=== PATIENT | male | born 1960 | race African-American/Black ===

== ENCOUNTER 2018-04-14 21:04 | Inpatient (IN) | payer SELFPAY ==
[2018-04-14 22:45] LABS: Bilirubin Small (Negative); Blood, Urine Small (Negative); Clarity CLEAR (Clear); Glucose, Urine (Dipstick) Negative (Negative); Leukocyte Negative (Negative); Nitrite Negative (Negative); Protein, Urine (Dipstick) Trace mg/dL (Neg-Trace); Specific Gravity, Urine 1.024 (1.002-1.036); pH, Urine 5.5 (5.0-9.0)
[2018-04-14 22:48] LABS: Bacteria/HPF None Seen HPF (None Seen); Hyaline Casts/LPF 0-3 HYALINE CAST LPF (0-3 Hyaline); Pathc Cast-AUWi Flag 0.58 (0-2.49); Squamous Epithelial 0-3 HPF (0-3); WBC/HPF 0-3 HPF (0-3)
[2018-04-14 23:19] LABS: #Basophils 0.1 thou/uL (0.0-0.2); #Lymphocytes 1.5 thou/uL (1.20-3.40); #Monocytes 0.5 thou/uL (0.11-0.59); #Neutrophils 3.9 thou/uL (1.40-6.50); %Basophils 1.2 % (0.0-1.0); %Eosinophils 0.4 % (0.0-10.0); %Lymphocytes 25.4 % (21.0-51.0); %Monocytes 8.7 % (0.0-10.0); %Neutrophils 64.3 % (42.0-75.0); Hemoglobin 13.8 g/dL (14.0-18.0); Mean Corpuscular HGB CONC 32.8 g/dL (32.0-36.0); Mean Corpuscular Volume 88.5 fL (78.0-98.0); Mean Platelet Volume 7.8 fL (7.4-10.4); Platelet Count 254 thou/uL (130-400); RBC Distribution Width 11.4 % (11.5-14.5); Red Blood Cell (RBC) Count 4.74 mill/uL (4.70-6.10)
[2018-04-14 23:36] LABS: ALT (SGPT) 16 U/L (8-55); AST (SGOT) 22 U/L (5-34); Albumin 4.2 g/dL (3.5-5.0); Alkaline Phosphatase 131 U/L (40-150); Anion Gap 11 mmol/L (10-20); BUN (Urea Nitrogen) 10 mg/dL (8.4-25.7); Bilirubin, Total 0.6 mg/dL (0.2-1.2); Calc. Creatinine Clearance 0 mL/min (70-130); Calcium 10.2 mg/dL (7.8-10.44); Carbon Dioxide 26 mmol/L (22-29); Chloride 104 mmol/L (98-107); Estimated GFR-MDRD Greater than 90; Globulin 3.5 g/dL (2.4-3.5); Glucose 86 mg/dL (70-105); Potassium 4.3 mmol/L (3.5-5.1); Protein, Total 7.7 g/dL (6.0-8.3); Sodium 137 mmol/L (136-145)
[2018-04-15] MEDS ORDERED: Morphine 10 MG/ML VIAL ONE (00:02)
[2018-04-15] MEDS ORDERED: Acetaminophen 325 MG TAB PO PRN (01:00)
[2018-04-15 01:17] VITALS: BMI 23.6
[2018-04-15] MEDS ORDERED: Milk Of Magnesia 30 ML UDCUP PO PRN (07:21)
[2018-04-15] MEDS ORDERED: ISOVUE-370 76%-LOCM 1 ML ONE (09:45)
[2018-04-15 10:34] LABS: Amphetamine Not Detected (NotDetected); Barbiturates Screen Not Detected (NotDetected); Benzodiazepine Screen Not Detected (NotDetected); Cocaine Metabolite Screen Not Detected (NotDetected); Medtox Control Line Valid? VALID (VALID); Medtox Reader # READER 1; Methadone Not Detected (NotDetected); Methamphetamine Not Detected (NotDetected); Opiate Screen Not Detected (NotDetected); Oxycodone Screen Not Detected (NotDetected); Phencyclidine (PCP) Not Detected (NotDetected); THC/Cannabinoid Screen Detected (NotDetected); Tricyclic Screen Not Detected (NotDetected)
[2018-04-15] MEDS: Heparin 5,000 UNITS/ML VIAL SC SCH ×3 (11:01→21:32)
[2018-04-15] MEDS: Docusate 100 MG CAP PO SCH ×2 (11:02→21:32)
[2018-04-15] MEDS: Lisinopril 10 MG TAB PO SCH (11:04)
[2018-04-15] MEDS: Naproxen 500 MG TAB PO SCH (11:07)
--- NOTE | 2018-04-15 11:26 | HP ---
CHIEF COMPLAINT: Lower extremity weakness. HISTORY OF PRESENT ILLNESS: Mr. Yony Marsh is a 57-year-old male with a past medical history o f hypertension, who complains of bilateral lower extremity edema that has been worse over the past 6 months. It is associated with pain in his left lower back. He describes it as achy and occasionally sharp. The pain does not radiate down his legs. There is no associated numbness or tingling. Over the past few months he has found it more difficult to ambulate and has been more or less confined to his room. There is no history of fevers or chills. 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 There is no history of urinary incontinence. No loss of sensation. At the emergency room, a rectal exam was done which showed decreased rectal to ne, but no other major findings on examination. Neurosurgery was consulted and they recommended gett ing MRIs of his lower extremities and his spine. I will review once imaging is done. PAST MEDICAL HISTORY: Hypertension. PAST SURGICAL HISTORY: None. PSYCHIATRIC HISTORY: None. FAMILY HISTORY: Reviewed and noncontributory. SOCIAL HISTORY: He drinks alcohol very rarely. He smokes cigarettes about 1 pack per week. He also admits to marijuana use. HOME MEDICATIONS: Lisinopril 10 mg daily, naproxen 500 mg daily. REVIEW OF SYSTEMS: All systems reviewed and negative except as stated in HPI. PHYSICAL EXAMINATION: VITAL SIGNS: Blood pressure 129/77, oxygen saturation 97% on room air, respiratory rate 18, pulse 61 , temperature 98.2 degree Fahrenheit. GENERAL: Not in acute distress, lying comfortably in bed. HEENT: Normocephalic, atraumatic. He has a scar across the left forehead. Moist mucous membranes. Poor dentition. NECK: Supple, with full range of movements. CARDIOVASCULAR: S1, S2 only. Regular rate and rhythm. No murmurs, rubs or gallops. RESPIRATORY: Vesicular breath sounds bilaterally. No wheezes or rales. MUSCULOSKELETAL: Tenderness around L2-L3 and L4, but no costovertebral angle tenderness. Strength i s about 3/5 in bilateral lower extremities, normal range of movements. RECTAL: Rectal exam was done in the emergency room and had a decreased rectal tone, but no saddle an esthesia. NEUROLOGIC: No focal deficit. Alert and well oriented to time, place and person. SKIN: Warm, dry, well-perfused. No rashes or lesions. PSYCHIATRIC: Normal mood and affect. LABORATORY DATA: CBC and CMP were largely unremarkable. Urinalysis as well as urine toxicology reve aled positive for cannabis. IMAGING: MRI of the thoracic, lumbar and cervical spine. ASSESSMENT AND PLAN: 1. Bilateral lower extremity weakness. 2. Hypertension. 3. He has had chronic bilateral lower extremity weakness with no alarming neurological signs. Neurosurgery consulted and MRI of his thoracic, lumbar and cervical spines have been ordered, they wi ll review with results. PLAN: We will ensure adequate pain control and he might require some muscle relaxants and lorazepam. We will also obtain a TSH, LDH and CPK as well. Differential diagnoses at this point are numerous including a possible radiculopathy, compression and less likely malignancy. Deep venous thrombosis prophylaxis; subcutaneous heparin. CODE STATUS: FULL CODE.
--- NOTE | 2018-04-15 12:21 | MRI ---
THORACIC SPINE WITHOUT CONTRAST: HISTORY: Bilateral lower extremity weakness. COMPARISON: None. TECHNIQUE: Multiplanar, multisequence MR images of the thoracic spine without contrast were obtained. FINDINGS: There is low signal intensity on the T1 images in the vertebral bodies which could suggest a marrow i nfiltrative process. No significant disk desiccation is seen. There is a well circumscribed focus of high T1 and T2 signal within the T10 vertebral body, which likely represents a small hemangioma. The visualized cord demonstrates normal signal throughout. There is a focus of high T2 signal on the left kidney, which likely represent a cyst. The other prevertebral and paraspinal soft tissues are unremarkable. No significant central canal stenosis is seen. No posterior facet arthrosis is present. No neural f oraminal stenosis is seen. IMPRESSION: No acute thoracic spine abnormality. POS: [facility]
--- NOTE | 2018-04-15 12:29 | MRI ---
MRI CERVICAL SPINE WITHOUT CONTRAST: HISTORY: Bilateral leg weakness. COMPARISON: None. TECHNIQUE: Multiplanar, multisequence MR images were obtained of the cervical spine without contrast. FINDINGS: On the sagittal STIR sequences, there is an appearance of abnormal signal within the cord. However, this is likely artifactual, as this is not confirmed on the sagittal T2 or the axial images. The crane assembler niocervical junction is unremarkable. There is generalized disk desiccation. Vertebral bodies are normal in height without fracture or sub luxation. There is low signal intensity on the T1 images in the vertebral bodies which could suggest a marrow infiltrative process. C2-C3: A minimal disk osteophyte complex is seen. Mild bilateral posterior facet arthrosis. No blaine tral canal stenosis. Mild bilateral neural foraminal stenosis. C3-C4: A small disk osteophyte complex is seen. Mild left posterior facet arthrosis. No right post erior facet arthrosis. Mild central canal stenosis. Moderate left and mild right neural foraminal s tenosis. C4-C5: A moderate disk osteophyte complex is seen. Mild bilateral posterior facet arthrosis. Moder ate to severe central canal stenosis. Moderate to severe bilateral neural foraminal stenosis. C5-C6: A moderate disk osteophyte complex is seen. Mild bilateral posterior facet arthrosis. Moder ate to severe central canal stenosis. Severe bilateral neural foraminal stenosis. C6-C7: A small disk osteophyte complex is seen. No posterior facet arthrosis. Mild central canal s tenosis. No neural foraminal stenosis. C7-T1: Unremarkable. IMPRESSION: 1. Degenerative changes of the cervical spine, as above. 2. No significant abnormal signal within the spinal cord in the cervical spine. POS: [facility]
--- NOTE | 2018-04-15 12:30 | MRI ---
MRI LUMBAR SPINE WITHOUT CONTRAST: Comparison: None. History: Bilateral lower extremity weakness. Technique: Multiplanar, multisequence MRI images were obtained of the lumbar spine without contrast. FINDINGS: There are endplate degenerative changes throughout the lumbar spine. There is low signal intensity on the T1 images in the vertebral bodies which could suggest a marrow infiltrative process. The conus m edullaris terminates normally at L1-2. The vertebral bodies demonstrate normal height without fractur e or subluxation. There is loss of intervertebral disc space height. Small foci of high T2 signal in both kidneys likely represents cysts. The paraspinal soft tissues are unremarkable. T12-L1: Unremarkable. L1-2: Unremarkable. L2-3: A moderate disc osteophyte complex is seen. Mild bilateral posterior facet arthrosis. Mild cent ral canal stenosis. Mild bilateral neural foraminal stenosis. L3-4: A small disc osteophyte complex is seen. Mild bilateral posterior facet arthrosis. Mild central canal stenosis. Mild bilateral neural foraminal stenosis. L4-5: Moderate disc osteophyte complex is seen. Mild bilateral posterior facet arthrosis. Mild centra l canal stenosis. Mild to moderate neural foraminal stenosis. L5-S1: A small disc osteophyte complex is seen. Moderate bilateral posterior facet arthrosis. Mild ce ntral canal stenosis. Moderate to severe bilateral neural foraminal stenosis. IMPRESSION: 1. Degenerative changes of the lumbar spine as above. 2. There is abnormal signal within the marrow which could suggest a marrow infiltrative process. Eloy elate with history of malignancy and correlate with white blood cell count. POS: [facility]
[2018-04-15] MEDS ORDERED: Cyclobenzaprine 10 MG TAB PO PRN (13:59)
--- NOTE | 2018-04-15 18:55 | CT ---
CT ABDOMEN WITH CONTRAST CT PELVIS WITH CONTRAST: DATE: 04/15/18 HISTORY: 57-year-old male with abdominal mass found on lumbar spine MRI. TECHNIQUE: IV injection of iodinated contrast media: 100 mL Isovue 370 Oral contrast media: Redi-Cat FINDINGS: There is a large, extraluminal, approximately 14.5 x 9 x 14.5 cm mass with lobulated margins in the a nterior peritoneal cavity, centered to the right of midline. It has a superior process that abuts the outer surface of the distal gastric body. Its inferior aspect reaches inferior to the right iliac cr est level. It has heterogeneous enhancement and lobulated margins, but no areas of necrosis. It is un certain whether it is arising from the outer surface of the stomach, or arising from the mesentery or omentum. It displaces the hepatic flexure of the colon posteriorly. Tiny subcentimeter hypodensity at the dome of the right lobe of the liver in hepatic segment VIII, to o small to characterize. Otherwise, the liver, kidneys, abdominal aorta, pancreas, adrenals, spleen, appendix, are normal. Large amount of stool expanding the rectum. No diverticulitis. No small bowel d ilation. No retroperitoneal or iliac chain lymphadenopathy. No ascites or pneumoperitoneum. There are mixed sclerotic and lucent changes throughout the right ilium and ischium, with slightly ex panded bone. Lung bases are grossly clear. IMPRESSION: 1. 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 2. 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 TEE Lawrence POS: [facility]
--- NOTE | 2018-04-15 19:56 | CON ---
DATE OF CONSULTATION: 04/15/2018 This is Carlos Alberto Britt PA-C, dictating for Dr. Rudy Gardner. This is a 50-minute initial patient consult in which greater than 50% of the exam was spent counselin g and coordinating patient's care. Remainder of the exam was spent in review of patient's medical re cords and appropriate imaging studies. CHIEF COMPLAINT: Low back pain with bilateral lower extremity pain and weakness with increased falls . HISTORY OF PRESENT ILLNESS: Mr. Marsh is a 57-year-old male who presents to [facility] f or the above complaints. The patient apparently has a 7-month history of low back pain with bilatera l entire thigh pain and weakness into the bilateral legs, worse on the right than the left. He state s that he typically falls 1-2 times per month and has required use of a cane and crutches for gait st ability over the past 3-4 months. He is not currently on blood thinners. He is a current every day smoker. The patient has noticed balance issue that have become progressively worse over the past sev eral months. He denies saddle anesthesia, urinary or bowel retention or incontinence. He denies num bness or tingling into the legs or decreased sensation to the feet. He is not diabetic. He denies n heather pain, dropping objects more frequently, difficulty with fine motor movements, burning in the hand s or changes in his handwriting. He has not had spinal surgery. PHYSICAL EXAMINATION: The patient is awake, alert, and appropriate. He does appear to have full str ength in the bilateral lower extremities, perhaps with some very trace weakness into the bilateral qu adriceps, worse in the right than the left and right plantar flexion. He has no worrisome tenderness to palpation along the entirety of the spine. He has no worrisome myelopathic features on exam incl uding negative Sepulveda's bilaterally and no increased tone. Gait was not tested in his exam room toedi lopez, although per the emergency room physician last night, he was able to walk around the exam room to the bathroom. His GCS currently is 15. IMPRESSION: 1. Chronic low back pain with bilateral leg pain, worse on the right than the left, in a nondermatom al distribution. 2. Increased falls. PLAN: I have discussed the patient's case with Dr. Gardner. At this time, given the patient's increa sed falls, balance difficulties and leg pain, I have ordered MRI and asked that MRIs of the cervical, thoracic, and lumbar spine be obtained. Medical colleagues who graciously admitted the patient and will work on his continued pain control. At this time, we hope to avoid any type of neurosurgical in tervention, but will need to obviously check back once these MRIs have been completed. Please call w ith any questions or changes in patient's neurologic status. Again, otherwise we will check back wit h his MRIs have been completed.
[2018-04-15] MEDS: Diazepam 5 MG TAB PO SCH (21:32)
--- NOTE | 2018-04-15 22:50 | CON ---
DATE OF CONSULTATION: 04/15/2018 HISTORY OF PRESENT ILLNESS: The patient is a 57-year-old male with a past medical history of hypertension, who presented to the emergency department complaining of bilateral lower extremity weakness. The patient reports that he has had gradual worsening bilateral lower extremity weakness over the past 6 months. The patient reports that he has difficult ambulating where his legs will give out causing frequent falls. He also reports he has a long history of chronic neck and back pain which has been progressively worsening over the years. He denies any bowel or bladder incontinence. No sensation changes in the extremities. He was admitted to the medical service for further evaluation and MRI of the cervical, thoracic, and lumbar spines were completed during his inpatient stay. I have reviewed the films with Dr. Young, which showed degenerative disk disease, particularly throughout the cervical and lumbar spine; however, there is no significant nerve compression. The patient was also seen to have a questionable mass-like formation which is approximately 14 cm within the abdomen which will likely require a further workup with a CT abdomen and pelvis imaging. PAST MEDICAL HISTORY: Hypertension. PAST SURGICAL HISTORY: The patient denies any prior surgeries. FAMILY HISTORY: Noncontributory. SOCIAL HISTORY: The patient is a smoker, 1 pack per week. He drinks socially. He does occasionally use marijuana. CURRENT MEDICATION LIST: Lisinopril 10 mg tab, 1 tab p.o. daily; naproxen 500 mg tab 1 tab p.o. daily. REVIEW OF SYSTEMS: Per HPI. PHYSICAL EXAMINATION: CONSTITUTIONAL: Sitting in the bed comfortably, in no acute distress. HEENT: Normocephalic, atraumatic. EYES: PERRLA. Extraocular movements intact. ENT: Oral mucosa is pink, intact and moist. He has normal voice. CARDIAC: Regular rate and rhythm. RESPIRATORY: The patient has symmetric chest expansion. He is breathing comfortably with no evidence of dyspnea. BACK: He is tender to palpation diffusely over the lumbar spine. Pain with range of motion. NECK: He is tender diffusely with his cervical spine. Pain with range of motion. No meningismus or nuchal rigidity. MUSCULOSKELETAL: He has free active range of motion of all extremities. No focal motor weakness appreciated on my exam. No reflex asymmetry. Negative Sepulveda's. Negative clonus. NEUROLOGIC: Alert and oriented x4. No focal motor deficits are appreciated on my exam. ASSESSMENT AND PLAN: This is a 57-year-old male who has had progressive lower extremity weakness, admitted to the Medicine Service with recent imaging of the cervical, thoracic, and lumbar spine with MRI. There is no significant nerve compression on his MRI to account for his lower extremity weakness, falls or difficulty ambulating. The patient does appear to have an incidental mass within the abdomen and found on the lumbar MRI, and this merits further workup with CT chest, abdomen, and pelvis imaging. We will defer to the Medicine Service regarding further evaluation of this mass. No further neurosurgical intervention indicated at this time. The patient may benefit from physical therapy, inpatient rehabilitation, and additional pain control measures. Please reach out to Neurosurgery for additional questions or concerns. [facility]IN[facility]
[2018-04-16 05:22] LABS: ALT (SGPT) 13 U/L (8-55); AST (SGOT) 19 U/L (5-34); Albumin 3.9 g/dL (3.5-5.0); Alkaline Phosphatase 123 U/L (40-150); Anion Gap 12 mmol/L (10-20); BUN (Urea Nitrogen) 16 mg/dL (8.4-25.7); Bilirubin, Total 0.4 mg/dL (0.2-1.2); CK (CPK) 531 U/L (30-200); Calc. Creatinine Clearance 136 mL/min (70-130); Calcium 9.9 mg/dL (7.8-10.44); Carbon Dioxide 27 mmol/L (22-29); Chloride 104 mmol/L (98-107); Estimated GFR-MDRD Greater than 90; Globulin 3.1 g/dL (2.4-3.5); Glucose 83 mg/dL (70-105); LDH 154 U/L (125-220); Potassium 4.1 mmol/L (3.5-5.1); Sodium 139 mmol/L (136-145)
[2018-04-16] MEDS: Naproxen 500 MG TAB PO SCH (07:46)
[2018-04-16] MEDS: Lisinopril 10 MG TAB PO SCH (07:48)
[2018-04-16] MEDS: Docusate 100 MG CAP PO SCH ×2 (07:48→20:52)
[2018-04-16] MEDS: Diazepam 5 MG TAB PO SCH ×2 (07:49→20:52)
[2018-04-16] MEDS: Heparin 5,000 UNITS/ML VIAL SC SCH ×3 (07:53→20:52)
--- NOTE | 2018-04-16 10:46 | PRG ---
DATE OF SERVICE: 04/16/2018 This is a 30 minute initial hospital visit note in which 30 minutes were spent in review the imaging record, evaluation, examination of the patient, and formulation of a plan. Greater than 50% of the t amie was spent in counseling on patient Mr. Yony Marsh. CHIEF COMPLAINT: Concern of leg weakness with abdominal mass incidentally found on MRI. HISTORY OF PRESENT ILLNESS: Mr. Marsh is a 57-year-old man who presented with leg weakness. Full spinal imaging demonstrates no evidence of worrisome compression of the neural elements; however, a 15 cm mass was identified in the anterior peritoneum to the right of the midline. This is concerning for neoplasm and I should note there is also evidence of abnormalities that may be degenerative vers us metastatic lesions in the right pelvis and lumbar spine. None of this provides instability howeve r. The patient on exam today has full strength in his lower extremity myotomes and he and his s early that his pain has been improved since initiating analgesic medication. IMPRESSION AND PLAN: At this point, I would recommend no further neurosurgical intervention. He obv iously needs a biopsy of this mass and will defer to our medical colleagues. I will sign off.
--- NOTE | 2018-04-16 13:53 | CON ---
DATE OF CONSULTATION: 04/16/2018 REASON FOR CONSULTATION: Extraluminal abdominal mass. HISTORY OF PRESENT ILLNESS: Mr. Marsh is a pleasant 57-year-old male with a hist ory of hypertension, who presented to the emergency room with a 6-month complaint of bilateral lower extremity swelling and pain. He underwent evaluation with an MRI. There were degenerative changes i n the lumbar spine; however, there was a mass measuring 15 cm in size noted. He then underwent an ab dominal and pelvis CT. The large extraluminal mass had lobulated margins, it is in the anterior ya toneal cavity, centered right of midline. There was a process that abutted the outer surface of the distal gastric body, measured 14 x 5 x 9 x 14 x 5 cm. There was no area of necrosis. Also noted a m ixed sclerotic and lucent bone lesions consistent with Paget's disease of the bone. We were asked to assist with diagnosis. The patient states he has been in his usual state of health except for his l ower extremity pain over the last 6 months. He has lost over 30 pounds due to decrease in appetite a nd early satiety. He denies any abdominal distention or pain. He has no constipation or diarrhea. PAST MEDICAL HISTORY: Hypertension. PAST SURGICAL HISTORY: None. ALLERGIES: No known drug allergies. HOME MEDICATIONS: 1. Lisinopril 10 mg daily. 2. Naproxen 500 mg daily p.r.n. FAMILY HISTORY: Has an older brother with prostate cancer, another brother with colon cancer. His f ather had stomach cancer and an aunt with breast cancer. SOCIAL HISTORY: A 40-year pack history of smoking. Occasional marijuana use. Rare alcohol. REVIEW OF SYSTEMS: A 12-point review of systems is negative except for noted in HPI. PHYSICAL EXAMINATION: VITAL SIGNS: Temperature is 97.3, pulse is 66, respiratory rate 16, BP is 126/77. He is 98% on room air. GENERAL: This is a well-developed, well-nourished male, in no acute distress. HEENT: Normocephalic, atraumatic. Pupils equal and reactive to light. NECK: Supple. CARDIOVASCULAR: Regular rate and rhythm. LUNGS: Clear. ABDOMEN: Soft, nondistended. There is a palpable mass right of the midline without any discrete mar gins. EXTREMITIES: No clubbing, cyanosis or edema. SKIN: No rash. HEMATOLOGIC: No petechia or purpura. NEUROLOGIC: Nonfocal. PSYCHIATRIC: The patient is alert and oriented and appropriate. PERTINENT LABORATORY AND X-RAYS: WBCs are 6.0, hemoglobin 13.8, hematocrit 41.9, platelet count 254, 000, 64% neutrophils, 25% lymphocytes. Sodium is 139, potassium 4.1, chloride 104, CO2 is 27, BUN is 16, creatinine 0.72, calcium is 9.9, total bilirubin is 0.4, AST is 19, ALT 13, alkaline phosphatase is 123. LDH is 154, serum total protein is 7.0, albumin 3.9, globulin 3.1. Drug screen was positiv e for marijuana. Radiology per HPI. IMPRESSION: Large extraluminal abdominal mass. DISCUSSION: Case has been discussed with Dr. Hooks and Dr. Ramirez. Recommendation is for a surgi liban opinion on possible resection. I have contacted Dr. Garcia, who will see the patient. If he fe els that resection is not an option, we will order a CT guided biopsy for diagnosis and further recom mendations will be based on those results. Thank you for the consult.
--- NOTE | 2018-04-16 16:41 | PDOC.PN ---
- Subjective Encounter Start Date: 04/16/18 Encounter Start Time: 16:43 57 M with a history of HTN p/w a 6 month history of bilateral lower extremity weakness. MRI C and L spine were without any emergent findings but suspected an intraperitoneal mass. CT abdomen showed a large intraperitoneal mass. Oncology and General Surgery consulted. Patient currently has no acute complaints and feels well. No acute events overnight. - Objective Resuscitation Status: Resuscitation Status FULL:Full Resuscitation MAR Reviewed: Yes Vital Signs & Weight: Vital Signs (12 hours) Temp Pulse Resp BP Pulse Ox 04/16/18 08:00 97.3 F L 66 16 126/77 98 04/16/18 07:14 97.3 F L 66 18 126/77 98 Weight Weight 184 lb 6.4 oz I&O: 04/15/18 04/16/18 04/17/18 06:59 06:59 06:59 Intake Total 110 250 Output Total 250 800 Balance -140 -550 Result Diagrams: 04/14/18 22:59 04/16/18 04:44 Additional Labs: Accuchecks 04/16/18 05:01 POC Glucose 96 Phys Exam - Physical Examination Constitutional: NAD HEENT: moist MMs, sclera anicteric Neck: supple, full ROM Respiratory: no wheezing, no rales, no rhonchi, clear to auscultation bilateral Cardiovascular: RRR, no significant murmur, no rub Gastrointestinal: soft, non-tender, no distention, positive bowel sounds Musculoskeletal: no edema, pulses present Neurological: non-focal Psychiatric: normal affect, A&O x 3 Skin: no rash, normal turgor Dx/Plan (1) Abdominal mass Code(s): R19.00 - INTRA-ABD AND PELVIC SWELLING, MASS AND LUMP, UNSP SITE Status: Acute Qualifiers: Abdominal location: unspecified location Qualified Code(s): R19.00 - Intra- abdominal and pelvic swelling, mass and lump, unspecified site (2) Weakness of both lower extremities Code(s): R29.898 - OTH SYMPTOMS AND SIGNS INVOLVING THE MUSCULOSKELETAL SYSTEM Status: Acute (3) HTN (hypertension) Code(s): I10 - ESSENTIAL (PRIMARY) HYPERTENSION Status: Acute - Plan cont current plan of care, plan discussed w/ family, PT/OT, out of bed/ambulate , DVT proph w/heparin Oncology consulted General Surgery consulted for possible resection PT/OT Continue pain control. Review of Systems - Medications/Allergies Allergies/Adverse Reactions: Allergies Allergy/AdvReac Type Severity Reaction Status Date / Time No Known Allergies Allergy Verified 04/15/18 01:57 Medications: Current Medications Cyclobenzaprine HCl (Flexeril) 10 mg PO TID PRN PRN Reason: Muscle Spasm Diazepam (Valium) 5 mg PO BID [facility] Last Admin: 04/16/18 07:49 Dose: 5 mg Docusate Sodium (Colace) 100 mg PO BID [facility] Last Admin: 04/16/18 07:48 Dose: 100 mg Heparin Sodium (Porcine) (Heparin) 5,000 units SC TID [facility] Last Admin: 04/16/18 13:38 Dose: Not Given Lisinopril (Zestril) 10 mg PO DAILY [facility] Last Admin: 04/16/18 07:48 Dose: 10 mg Magnesium Hydroxide (Milk Of Magnesium) 30 ml PO DAILYPRN PRN PRN Reason: Constipation Morphine Sulfate (Morphine) 2 mg SLOW IVP Q4H PRN PRN Reason: Severe Pain (7-10) Last Admin: 04/15/18 13:51 Dose: 2 mg Naproxen (Naprosyn) 500 mg PO DAILY [facility] Last Admin: 04/16/18 07:46 Dose: 500 mg Sodium Chloride (Flush - Normal Saline) 10 ml IVF Q12HR [facility] Last Admin: 04/16/18 07:53 Dose: 10 ml Sodium Chloride (Flush - Normal Saline) 10 ml IVF PRN PRN PRN Reason: Saline Flush
--- NOTE | 2018-04-16 18:43 | CON ---
DATE OF CONSULTATION: 04/16/2018 CHIEF COMPLAINT: Abdominal discomfort associated with weakness. HISTORY OF PRESENT ILLNESS: This is a 57-year-old male who presents with progressive weakness, admit felecia to the hospital. Further workup has revealed a large abdominal mass. I have been consulted for opinions on etiology as well as potential treatment. He has not had a biopsy yet. He has never had upper or lower endoscopy. He denies hematemesis, melena or hematochezia. Denies weight loss. PAST MEDICAL HISTORY: Hypertension. PAST SURGICAL HISTORY: Denies. MEDICINES AT HOME: Lisinopril and naproxen. SOCIAL HISTORY: A 18-mtov-rskl smoker. Occasional marijuana. Occasional alcohol. FAMILY HISTORY: Positive for prostate cancer, colon and stomach cancer as well as breast cancer. REVIEW OF SYSTEMS: Ten system review of systems otherwise negative unless described above. PHYSICAL EXAMINATION: VITAL SIGNS: Blood pressure is 126/77, pulse 66, respirations 16. He is afebrile. HEENT: Sclerae are anicteric. Oropharynx clear. NECK: No lymphadenopathy. CHEST: Clear. HEART: Regular rate and rhythm. ABDOMEN: Soft. There is palpable mass in the right hemiabdomen. There are no abdominal inguinal he rnias. EXTREMITIES: No ischemia or edema to extremities. LABORATORY DATA AND IMAGING DATA: White blood cell count is 6, hemoglobin is 13.8, platelet count is 254, creatinine 0.72, creatinine kinase is 531, otherwise complete metabolic panel including LFTs al l normal. CT scan shows there is large intra-abdominal mass. ASSESSMENT: Intra-abdominal mass. PLAN: Further workup would include upper endoscopy. He could make a case this is coming from the du odenum or stomach and a CT guided biopsy.
[2018-04-17 05:21] LABS: ALT (SGPT) 15 U/L (8-55); AST (SGOT) 22 U/L (5-34); Albumin 3.6 g/dL (3.5-5.0); Alkaline Phosphatase 114 U/L (40-150); Anion Gap 8 mmol/L (10-20); BUN (Urea Nitrogen) 13 mg/dL (8.4-25.7); Bilirubin, Total 0.7 mg/dL (0.2-1.2); Calc. Creatinine Clearance 144 mL/min (70-130); Calcium 9.3 mg/dL (7.8-10.44); Carbon Dioxide 28 mmol/L (22-29); Chloride 106 mmol/L (98-107); Estimated GFR-MDRD Greater than 90; Globulin 2.8 g/dL (2.4-3.5); Glucose 89 mg/dL (70-105); Potassium 3.9 mmol/L (3.5-5.1); Protein, Total 6.4 g/dL (6.0-8.3); Sodium 138 mmol/L (136-145)
[2018-04-17] MEDS: Heparin 5,000 UNITS/ML VIAL SC SCH ×3 (08:59→20:40)
[2018-04-17] MEDS: Docusate 100 MG CAP PO SCH ×2 (09:02→20:38)
[2018-04-17] MEDS: Lisinopril 10 MG TAB PO SCH (09:02)
[2018-04-17] MEDS: Naproxen 500 MG TAB PO SCH (09:03)
[2018-04-17] MEDS: Diazepam 5 MG TAB PO SCH ×2 (09:03→20:38)
--- NOTE | 2018-04-17 09:12 | PDOC.PN ---
- Subjective Encounter Start Date: 04/17/18 Encounter Start Time: 09:36 57 M with a history of HTN p/w a 6 month history of bilateral lower extremity weakness. MRI C and L spine were without any emergent findings but suspected an intraperitoneal mass. CT abdomen showed a large intraperitoneal mass. Oncology and General Surgery consulted. Patient currently has no acute complaints and feels well. No acute events overnight. - Objective Resuscitation Status: Resuscitation Status FULL:Full Resuscitation Vital Signs & Weight: Vital Signs (12 hours) Temp Pulse Resp BP Pulse Ox 04/17/18 07:43 98.0 F 50 L 16 133/86 98 04/17/18 07:24 98 Weight Weight 184 lb 6.4 oz I&O: 04/16/18 04/17/18 04/18/18 06:59 06:59 06:59 Intake Total 250 240 Output Total 800 200 Balance -550 40 Result Diagrams: 04/14/18 22:59 04/17/18 04:50 Phys Exam - Physical Examination Constitutional: NAD HEENT: moist MMs, sclera anicteric Neck: supple, full ROM Respiratory: no wheezing, no rales, no rhonchi, clear to auscultation bilateral Cardiovascular: RRR, no significant murmur, no rub Gastrointestinal: soft, non-tender, no distention, positive bowel sounds Musculoskeletal: no edema, pulses present Psychiatric: normal affect, A&O x 3 Dx/Plan (1) Abdominal mass Code(s): R19.00 - INTRA-ABD AND PELVIC SWELLING, MASS AND LUMP, UNSP SITE Status: Acute Qualifiers: Abdominal location: unspecified location Qualified Code(s): R19.00 - Intra- abdominal and pelvic swelling, mass and lump, unspecified site Comment: Concerns for possible malignancy. Oncology on board. General surgery consulted for possible tumor excision. (2) Weakness of both lower extremities Code(s): R29.898 - OTH SYMPTOMS AND SIGNS INVOLVING THE MUSCULOSKELETAL SYSTEM Status: Chronic Comment: Nothing acute found on MRIs- degenerative L spine changes. PT/OT and manager cable consulted. Will likely need placement in [facility]. (3) HTN (hypertension) Code(s): I10 - ESSENTIAL (PRIMARY) HYPERTENSION Status: Chronic Qualifiers: Hypertension type: essential hypertension Qualified Code(s): I10 - Essential (primary) hypertension - Plan cont current plan of care, PT/OT, social sciences research scientist, out of bed/ambulate, DVT proph w/heparin Stable. Awaiting possible excision biopsy to confirm diagnosis. Continue PT/OT CM consulted for discharge planning. Review of Systems - Medications/Allergies Allergies/Adverse Reactions: Allergies Allergy/AdvReac Type Severity Reaction Status Date / Time No Known Allergies Allergy Verified 04/15/18 01:57 Medications: Current Medications Cyclobenzaprine HCl (Flexeril) 10 mg PO TID PRN PRN Reason: Muscle Spasm Diazepam (Valium) 5 mg PO BID [facility] Last Admin: 04/16/18 20:52 Dose: 5 mg Docusate Sodium (Colace) 100 mg PO BID [facility] Last Admin: 04/16/18 20:52 Dose: 100 mg Heparin Sodium (Porcine) (Heparin) 5,000 units SC TID [facility] Last Admin: 04/16/18 20:52 Dose: 5,000 units Lisinopril (Zestril) 10 mg PO DAILY [facility] Last Admin: 04/16/18 07:48 Dose: 10 mg Magnesium Hydroxide (Milk Of Magnesium) 30 ml PO DAILYPRN PRN PRN Reason: Constipation Morphine Sulfate (Morphine) 2 mg SLOW IVP Q4H PRN PRN Reason: Severe Pain (7-10) Last Admin: 04/15/18 13:51 Dose: 2 mg Naproxen (Naprosyn) 500 mg PO DAILY [facility] Last Admin: 04/16/18 07:46 Dose: 500 mg Sodium Chloride (Flush - Normal Saline) 10 ml IVF Q12HR [facility] Last Admin: 04/16/18 20:56 Dose: 10 ml Sodium Chloride (Flush - Normal Saline) 10 ml IVF PRN PRN PRN Reason: Saline Flush
[2018-04-17] MEDS ORDERED: traMADol HCl 50 MG TAB PO PRN (09:17)
[2018-04-18 05:00] LABS: Hemoglobin 12.3 g/dL (14.0-18.0); Mean Corpuscular HGB CONC 31.9 g/dL (32.0-36.0); Mean Corpuscular Hemoglobin 29.1 pg (27.0-31.0); Mean Corpuscular Volume 91.2 fL (78.0-98.0); Platelet Count 217 thou/uL (130-400); RBC Distribution Width 11.4 % (11.5-14.5); Red Blood Cell (RBC) Count 4.23 mill/uL (4.70-6.10); White Blood Cell (WBC) Count 5.2 thou/uL (4.8-10.8)
[2018-04-18 05:20] LABS: Anion Gap 9 mmol/L (10-20); BUN (Urea Nitrogen) 13 mg/dL (8.4-25.7); Calc. Creatinine Clearance 144 mL/min (70-130); Calcium 9.7 mg/dL (7.8-10.44); Carbon Dioxide 30 mmol/L (22-29); Chloride 106 mmol/L (98-107); Estimated GFR-MDRD Greater than 90; Glucose 87 mg/dL (70-105); Potassium 3.8 mmol/L (3.5-5.1); Sodium 141 mmol/L (136-145)
[2018-04-18] MEDS: Docusate 100 MG CAP PO SCH ×2 (08:40→21:08)
[2018-04-18] MEDS: Lisinopril 10 MG TAB PO SCH (08:41)
[2018-04-18] MEDS: Heparin 5,000 UNITS/ML VIAL SC SCH ×3 (08:41→21:08)
[2018-04-18] MEDS: Naproxen 500 MG TAB PO SCH (08:41)
[2018-04-18] MEDS: Diazepam 5 MG TAB PO SCH ×2 (08:41→21:08)
--- NOTE | 2018-04-18 16:08 | PDOC.PN ---
- Subjective Encounter Start Date: 04/18/18 Encounter Start Time: 16:07 Mr. Marsh was seen today in follow-up of intra-abdominal mass. He does not have any complaints. He denies leg pain , and says the weakness is stable. - Objective Resuscitation Status: Resuscitation Status FULL:Full Resuscitation MAR Reviewed: Yes Vital Signs & Weight: Vital Signs (12 hours) Temp Pulse Resp BP BP Pulse Ox 04/18/18 08:41 124/80 04/18/18 08:00 97.9 F 56 L 18 124/80 98 04/18/18 07:26 97 Weight Weight 184 lb 6.4 oz I&O: 04/17/18 04/18/18 04/19/18 06:59 06:59 06:59 Intake Total 240 480 Output Total 200 840 Balance 40 -360 Result Diagrams: 04/18/18 04:30 04/18/18 04:30 Phys Exam - Physical Examination HEENT: PERRLA, sclera anicteric Respiratory: no wheezing, no rales, no rhonchi, clear to auscultation bilateral Cardiovascular: RRR, no significant murmur, no rub Gastrointestinal: soft, non-tender, no distention, positive bowel sounds Musculoskeletal: no edema Dx/Plan (1) Abdominal mass Code(s): R19.00 - INTRA-ABD AND PELVIC SWELLING, MASS AND LUMP, UNSP SITE Status: Acute Qualifiers: Abdominal location: unspecified location Qualified Code(s): R19.00 - Intra- abdominal and pelvic swelling, mass and lump, unspecified site Comment: Concerns for possible malignancy. Oncology on board. General surgery consulted for possible tumor excision. (2) HTN (hypertension) Code(s): I10 - ESSENTIAL (PRIMARY) HYPERTENSION Status: Chronic Qualifiers: Hypertension type: essential hypertension Qualified Code(s): I10 - Essential (primary) hypertension (3) Weakness of both lower extremities Code(s): R29.898 - OTH SYMPTOMS AND SIGNS INVOLVING THE MUSCULOSKELETAL SYSTEM Status: Chronic Comment: Nothing acute found on MRIs- degenerative L spine changes. PT/OT and manager social work consulted. Will likely need placement in [facility]. - Plan * Intra-abdominal mass - plan is for CT guided biopsy * General Surgeon is recommending a GI consult- will place this * Continue Valium for muscle spasm * HTN- blood pressure is controlled.
--- NOTE | 2018-04-19 00:03 | CON ---
DATE OF CONSULTATION: 04/18/2018 REASON FOR CONSULTATION: Abnormal GI imaging (possible GIST). CONSULTING PHYSICIAN: Dr. Dave Leavitt. HISTORY OF PRESENT ILLNESS: The patient is a 57-year-old -[place] male with past medical his tory of hypertension who initially presented to the hospital with complaints of back pain. He states that for the last 6 months, he has been having increased chronic lower back pain that has been progr essively worsening over this time. This was also associated with increased generalized weakness of h is lower extremities that has significantly affected his ability to ambulate with recurrent falls as a result. He also endorses an approximate 50-pound weight loss over the last 6 months during the [facility]. Ultimately, he was brought to the [facility] ER for evaluation and while in the ER, he had a CT scan and was noted to have a large abdominal mass along the anterior wall of the stomach and was ultimately admitted for evaluation of this particular mass as well as his back pain. Currkristina matthew, he states that he is doing well and other than his back pain, denies any nausea, vomiting, fever s, chills, abdominal pain, GI bleeding, odynophagia, dysphagia, or change in bowel habits. REVIEW OF SYSTEMS: A ten-category review of systems was obtained with all responses negative except for the pertinent positives as listed in the HPI. PAST MEDICAL HISTORY: Hypertension. PAST SURGICAL HISTORY: None. FAMILY HISTORY: Denies any GI malignancies. SOCIAL HISTORY: Drinks approximately 1-2 drinks weekly. He smokes about 1 pack of cigarettes weekly and he also admits to intermittent marijuana use. OUTPATIENT MEDICATIONS: Reviewed. ALLERGIES: No known drug allergies. PHYSICAL EXAMINATION: VITAL SIGNS: Temperature 98, pulse 67, blood pressure 137/83, respiratory rate 18, satting 97% on ro om air. GENERAL: Patient was sitting in a wheelchair at bedside in no acute distress. Alert and oriented x4 . NECK: Supple. No JVD noted. CARDIOVASCULAR: Regular rate and rhythm with no discernible murmurs, gallops or rubs. RESPIRATORY: Clear to auscultation bilaterally with no discernible wheezes or rales. ABDOMEN: Normoactive bowel sounds, soft, nontender, nondistended. I was unable to palpate the intra abdominal mass. EXTREMITIES: No cyanosis, clubbing or edema. LABORATORY DATA: CBC with a white blood cell count of 5.2, hemoglobin 12.3, hematocrit 38.6, platele ts 217,000. Chemistry with a sodium of 141, potassium 3.8, chloride 106, CO2 of 30, BUN 13, creatini ne 0.68, glucose 87, AST 22, ALT 15, alkaline phosphatase 114, total bilirubin 0.7, albumin 3.6, crea geovani kinase 531. Drug of abuse screen positive for marijuana. IMAGING DATA: CT of the abdomen and pelvis obtained on 04/16/2018 showed a large extraluminal mass m easuring approximately 14 x 5 x 9 x 14 x 5 cm with the lobulated margins in the anterior peritoneal c avity. It has a superior process that abuts the outer surface of the distal gastric body and its inf erior aspect reaches inferior to the right iliac crest level and has a heterogenous enhancement and l obulated margins, but no areas of necrosis and it is uncertain whether this is arising from the outer surface of the stomach or arising from the mesentery or omentum. There is also a tiny subcentimeter hypodensity at the dome of the right liver and the hepatic segment 8 that was too small to character ize, and a large amount of stool was seen expanding the rectum, there was also a mixed sclerotic and lucent changes throughout the right ilium and ischium with slightly expanded bone more consistent wit h Paget's disease as opposed to osseous metastases. Given the extraluminal peritoneal mass, it seems more in line with a sarcoma such as a GIST or leiomyosarcoma. ASSESSMENT AND PLAN: The patient is a 57-year-old male with past medical history of hypertension pre senting with chronic lower back pain and abnormal GI imaging regarding a large intraperitoneal mass a long the inferior aspect of the stomach. 1. Abnormal gastrointestinal imaging. The patient was initially seen in the emergency room for evaluation related to chronic lower back wilson n. However, while in the ER, he underwent a CT scan of the abdomen which noted a 14x5 x 9x14 x 5 cm mass in the anterior peritoneal cavity along the outer surface of the distal gastric body. At this p oint, it is difficult to tell if this mass is in direct communication with the stomach, but based on its characteristics seems unlikely to be extending or invading into the stomach. At this point, the mass could be related more to a GI stromal tumor versus a leiomyosarcoma, but the etiology of this ma ss is still uncertain. RECOMMENDATIONS: 1. We will make patient n.p.o. at midnight for upper endoscopy in the morning to see if abnormal int raluminal tissue can be seen within the stomach that might establish a tissue biopsy. 2. We will make the patient n.p.o. at midnight in preparation for upper endoscopy in the morning. 3. If unable to establish a tissue diagnosis on upper endoscopy, we would consider surgical evaluati on for possible excision of the lesion which will be diagnostic in the process. We will continue to follow. Please call with any questions.
[2018-04-19 07:22] VITALS: TEMP 98
[2018-04-19 07:40] LABS: PTT 33.5 SEC (22.9-36.1); Prothrombin Time 13.7 SEC (12.0-14.7)
[2018-04-19] MEDS: Heparin 5,000 UNITS/ML VIAL SC SCH ×2 (08:46→14:02)
[2018-04-19] MEDS: Lisinopril 10 MG TAB PO SCH (08:46)
[2018-04-19] MEDS: Diazepam 5 MG TAB PO SCH (08:46)
[2018-04-19] MEDS: Docusate 100 MG CAP PO SCH (08:46)
[2018-04-19] MEDS: Naproxen 500 MG TAB PO SCH (08:47)
--- NOTE | 2018-04-19 10:46 | OP ---
DATE OF PROCEDURE: 04/19/2018 PROCEDURE: Esophagogastroduodenoscopy (diagnostic). INDICATION FOR PROCEDURE: Abnormal GI imaging, possible gastric mass on imaging. DESCRIPTION OF PROCEDURE: After the risks and benefits of the procedure were explained to the patien t including risk of bleeding, infection, perforation, reaction to anesthesia and/or pain, informed co nsent was obtained. The patient was then taken to the endoscopy suite where deep sedation was admini stered via propofol and anesthesia support. Once adequate sedation was achieved, the standard gastro scope was introduced into the mouth with intubation of the esophagus, stomach and proximal small inte micaela with the findings listed below. The patient tolerated the procedure well with no immediate per ioperative complications. FINDINGS: ESOPHAGUS: Normal appearing mucosa was seen in the proximal, mid and distal esophagus. Both the tunde phragmatic pinch and GE junction were both well seen at 43 cm past the incisors. There was no eviden ce of erosions, ulcerations, mass lesions or active/recent bleeding. STOMACH: Normal appearing mucosa was seen in the gastric cardia, fundus, body, antrum and incisura. There was no evidence of erosions, ulcerations, mass lesions, nodularity to the gastric mucosa or ac tive/recent bleeding. DUODENUM: Normal appearing mucosa was seen in both the duodenal bulb and second portion of the duode num. There was no evidence of erosions, ulcerations, mass lesions or active/recent bleeding. IMPRESSION: 1. Normal upper endoscopy. 2. No endoscopic evidence was seen for possible upper GI tract mass/tumor during this examination. RECOMMENDATIONS: Would proceed with either CT guided biopsy or General Surgery excision to establish more definitive diagnosis for exophytic mass. We will sign off at this time. Please call with any additional questions.
[2018-04-19 10:52] VITALS: BP 117/74
[2018-04-19] MEDS ORDERED: Lidocaine 1% PF 5 ML VIAL ONE (14:57)
[2018-04-19] MEDS ORDERED: PROPOFOL 200 MG/20 ML VIAL ONE (14:57)
--- NOTE | 2018-04-19 14:58 | CT ---
CT GUIDED BIOPSY OF INTRAABDOMINAL MASS: Indication: Large intraabdominal mass as previously described on CT of 04-15-18. Patient was referred for percutaneous biopsy. FINDINGS: Four separate 18 gauge core specimens were obtained. Specimens were given to pathology at CT. Dr. River osn confirmed adequacy of the tissue. PROCEDURE NOTE: Axial tomograms were obtained with the patient in supine position. The large mass in the anterior abd omen to the right of midline is again seen. A skin entry site was identified and overlying skin was p repped and draped in a sterile manner. Local anesthesia was administered with Lidocaine and bicarb. T iny skin incision was made with scalpel. A 17 gauge guide needle with trocar in place was introduced from an anterior approach under CT guidance. The tip of the needle was placed through the anterior ma rgin of the mass. Trocar was removed and 18 gauge biopsy instrument was attached. A core specimen was obtained and given to Dr. Ramirez who was present at CT. Dr. Ramirez confirmed adequacy. Four other 18 gauge core specimens were obtained and given to Dr. Ramirez for preparation. Post-procedure CT showed no evidence of hematoma. Patient tolerated the procedure well and there were no problems or complications. POS: [facility]
--- NOTE | 2018-04-19 16:27 | PDOC.PN ---
- Subjective Encounter Start Date: 04/19/18 Encounter Start Time: 16:27 Mr. Marsh was seen today in follow-up of Abdominal mass. He says he is doing better, and his pain is controlled. - Objective Resuscitation Status: Resuscitation Status FULL:Full Resuscitation MAR Reviewed: Yes Vital Signs & Weight: Vital Signs (12 hours) Temp Pulse Pulse Resp BP BP BP 04/19/18 08:46 124/80 04/19/18 07:44 54 L 117/74 04/19/18 07:20 98.0 F 54 L 16 117/74 04/19/18 07:16 98.0 F 54 L 16 Pulse Ox Pulse Ox 04/19/18 08:46 04/19/18 07:44 100 04/19/18 07:20 100 04/19/18 07:16 Weight Weight 184 lb 6.4 oz I&O: 04/18/18 04/19/18 04/20/18 06:59 06:59 06:59 Intake Total 480 850 Output Total 840 1200 Balance -360 -350 Result Diagrams: 04/18/18 04:30 04/18/18 04:30 Phys Exam - Physical Examination HEENT: PERRLA Respiratory: no wheezing, no rales, no rhonchi, clear to auscultation bilateral Cardiovascular: RRR, no significant murmur, no rub Gastrointestinal: soft, non-tender, positive bowel sounds Musculoskeletal: no edema Dx/Plan (1) Abdominal mass Code(s): R19.00 - INTRA-ABD AND PELVIC SWELLING, MASS AND LUMP, UNSP SITE Status: Acute Qualifiers: Abdominal location: unspecified location Qualified Code(s): R19.00 - Intra- abdominal and pelvic swelling, mass and lump, unspecified site Comment: Concerns for possible malignancy. Oncology on board. General surgery consulted for possible tumor excision. (2) HTN (hypertension) Code(s): I10 - ESSENTIAL (PRIMARY) HYPERTENSION Status: Chronic Qualifiers: Hypertension type: essential hypertension Qualified Code(s): I10 - Essential (primary) hypertension (3) Weakness of both lower extremities Code(s): R29.898 - OTH SYMPTOMS AND SIGNS INVOLVING THE MUSCULOSKELETAL SYSTEM Status: Chronic Comment: Nothing acute found on MRIs- degenerative L spine changes. PT/OT and hospice manager consulted. Will likely need placement in [facility]. - Plan * Abdominal mass- he has had the CT guided biopsy, and awaiting result * He is stable for discharge home.
--- NOTE | 2018-04-20 01:58 | DIS ---
DATE OF ADMISSION: 04/14/2018 DATE OF DISCHARGE: 04/19/2018 PRIMARY CARE PHYSICIAN: Dr. Alan Hughes. DISCHARGE DISPOSITION: Home. PRIMARY DISCHARGE DIAGNOSES: 1. Intra-abdominal mass. 2. Lower extremity weakness, likely secondary to the mass. 3. Hypertension. DISCHARGE MEDICATIONS: Include Valium 5 mg twice a day and this is used for a muscle relaxer as well as Flexeril 10 mg t.i.d. as needed, Zestril 10 mg daily, Naprosyn 500 mg daily as needed, and Tramad ol 50 mg q.6. hours as needed for pain. PROCEDURES DONE DURING ADMISSION: The patient had a CT scan of the cervical and thoracic spine witho ut any significant abnormalities noted. The patient also had an MRI of the lumbar spine in which the re were some degenerative changes in the lumbar spine, but there was an abnormal signal within the ma rrow which could suggest an infiltrative process and also an addendum was issued and it demonstrated a 14.8-cm mass, which could be present in the bowel. The patient also had a repeat CT scan of the ab domen and pelvis, noting a large right-sided intraperitoneal neoplastic tumor which could represent e ither a sarcoma or GIST or leiomyosarcoma and there was some osteo mixed sclerotic lucent area in the right hemipelvis, possibly related to Paget's disease. The patient had an upper endoscopy which was negative and also had a CT-guided biopsy in which the pathology was pending at the time of discharge . CODE STATUS: FULL CODE. ALLERGIES: No known drug allergies. HOSPITAL COURSE: Mr. Marsh is a pleasant 57-year-old gentleman who presented to the emergency genna m, complaining of weakness in his lower extremities. It was initially concern that this could be a s erick related process and an MRI of the cervical, thoracic, and lumbar spines were obtained. This wa s essentially unrevealing for any spinal disease; however, it did demonstrate a mass in the pelvic re gion and for this reason, General Surgery and Gastroenterology were consulted. He ultimately underwe nt upper endoscopy which was negative. Had a CT guided biopsy which was pending. He will be followi ng up with Janeth Del Rio [facility]. The patient is unfortunate ly uninsured and she is aware of this and the plan is to hopefully try to find some type of patient a ssistance so that he can get treated and also this will depend on the pathology results and whether o r not this is a just tumor or a sarcoma.
--- NOTE | 2018-04-20 11:29 | CT ---
CT GUIDED BIOPSY OF INTRAABDOMINAL MASS: Indication: Large intraabdominal mass as previously described on CT of 04-15-18. Patient was referred for percutaneous biopsy. FINDINGS: Four separate 18 gauge core specimens were obtained. Specimens were given to pathology at CT. Dr. River son confirmed adequacy of the tissue. PROCEDURE NOTE: Axial tomograms were obtained with the patient in supine position. The large mass in the anterior abd omen to the right of midline is again seen. A skin entry site was identified and overlying skin was p repped and draped in a sterile manner. Local anesthesia was administered with Lidocaine and bicarb. T iny skin incision was made with scalpel. A 17 gauge guide needle with trocar in place was introduced from an anterior approach under CT guidance. The tip of the needle was placed through the anterior ma rgin of the mass. Trocar was removed and 18 gauge biopsy instrument was attached. A core specimen was obtained and given to Dr. Ramirez who was present at CT. Dr. Ramirez confirmed adequacy. Four other 18 gauge core specimens were obtained and given to Dr. Ramirez for preparation. Post-procedure CT showed no evidence of hematoma. Patient tolerated the procedure well and there were no problems or complications.
== END 2018-04-19 18:23 | disposition home or self-care (01) | DRG 392 ==
LOC: ERS 21:04 → T4-B 22:53
PROVIDERS: ADMIT Internal Medicine; ATTEND Internal Medicine
PROC: 0DJ08ZZ Inspection of Upper Intestinal Tract, Via Natural or Artificial Opening Endoscopic (ICD-10-PCS; principal; 2018-04-19)
PROC: 0JB83ZX Excision of Abdomen Subcutaneous Tissue and Fascia, Percutaneous Approach, Diagnostic (ICD-10-PCS; 2018-04-19)
DX: R19.00 Intra-abdominal and pelvic swelling, mass and lump, unspecified site (principal); I10 Essential (primary) hypertension; M62.838 Other muscle spasm; F17.210 Nicotine dependence, cigarettes, uncomplicated; F12.10 Cannabis abuse, uncomplicated; Z91.81 History of falling
CPT/HCPCS: 36415; 36416; 49180; 72141; 72146; 72148; 74177; 77012; 80048; 80053; 80306; 81003; 81015; 82550; 83615; 84443; 85025; 85027; 85610; 85730; 86140; 96374; A4216; G8978-GP-CL; G8979-GP-CJ; G8987-GO-CK; G8988-GO-CI; J1644; J2001; J2270; J2704

== ENCOUNTER 2018-07-28 16:08 | Emergency (ER) | payer OTHER, SELFPAY ==
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
== END 2018-07-28 17:56 | disposition home or self-care (01) ==
LOC: ERS 16:08
DX: S46.912A Strain of unspecified muscle, fascia and tendon at shoulder and upper arm level, left arm, initial encounter (principal); I10 Essential (primary) hypertension; F17.210 Nicotine dependence, cigarettes, uncomplicated; Z71.6 Tobacco abuse counseling; Z79.899 Other long term (current) drug therapy; V89.2XXA Person injured in unspecified motor-vehicle accident, traffic, initial encounter
CPT/HCPCS: 99406

== ENCOUNTER 2018-08-17 08:57 | Outpatient (CLI) | payer OTHER ==
--- NOTE | 2018-08-17 11:08 | ULT ---
BLADDER ULTRASOUND: History: 57-year-old male with history of gastrointestinal stromal tumor of small intestine. FINDINGS: The urinary bladder appears unremarkable. Bladder volume = 116 cc. There are bilateral ureteral jets. IMPRESSION: Unremarkable ultrasound of the urinary bladder. Bilateral ureteral jets are present. POS: [facility]
--- NOTE | 2018-08-17 11:11 | ULT ---
ABDOMINAL ULTRASOUND: History: Patient has a history of an intraabdominal mass. Now with abdominal pain. FINDINGS: This examination is very limited as the patient was unable to get out of the wheelchair for this stud y. Gallbladder appears unremarkable. Common duct is 6 mm. The technologist reports a negative ultraso und Nick's sign. The liver is 19.8 cm in length but shows no focal lesions. The spleen is partially obscured. It measures 9 cm in length. The pancreas was not well visualized. Abdominal aorta and IVC regions were also obscured on this exam. Right and left kidneys are within normal limits in size and not obstructed. The left kidney is poorly visualized due to gas. IMPRESSION: Limited examination due to patient having to be in a wheelchair for this examination. No abnormalitie s are demonstrated in the upper abdomen. POS: [facility]
== END 2018-08-17 08:58 | disposition home or self-care (01) ==
LOC: BICULT 08:57
PROVIDERS: ATTEND Internal Medicine Medical Oncology
DX: C49.A3 Gastrointestinal stromal tumor of small intestine (principal)
CPT/HCPCS: 76700; 76856

== ENCOUNTER 2018-09-17 09:31 | Outpatient (CLI) | payer OTHER, SELFPAY ==
--- NOTE | 2018-09-17 11:46 | ULT ---
LIMITED ABDOMINAL ULTRASOUND: INDICATIONS: Evaluate size of gastrointestinal stromal tumor. COMPARISON: CT of the abdomen and pelvis dated 04/15/2018. FINDINGS: Limited schwartz-scale ultrasound images demonstrate a 14.5 cm mediolateral, a 10.3 cm craniocaudal, and a 6 cm AP dimension mass, corresponding to the large right mid abdomen gastrointestinal stromal tumor . The measurements are slightly less pronounced than on the comparison CT, where it measured 14.2 in its greatest mediolateral, 14.3 in its greatest craniocaudal, and 9.2 cm in its greatest AP dimensio n. Some of this may be related to differences in modality. IMPRESSION: Slight interval decrease in the size of the gastrointestinal stromal tumor; however, it is difficult to compare due to modality differences. A CT of the abdomen and pelvis with contrast may be more hel pful to give more accurate measurements. The patient will not be charged for this examination, as this was a requested exam from the patient's abdominal ultrasound, dated 08/17/2018. POS: [facility]
== END 2018-09-17 09:32 | disposition home or self-care (01) ==
LOC: ULT 09:31
PROVIDERS: ATTEND Internal Medicine Medical Oncology
DX: C49.A3 Gastrointestinal stromal tumor of small intestine (principal); R19.00 Intra-abdominal and pelvic swelling, mass and lump, unspecified site
CPT/HCPCS: 76705

== ENCOUNTER 2018-10-10 15:28 | Observation (INO) | payer OTHER, SELFPAY ==
[2018-10-10 16:15] LABS: #Basophils 0.1 thou/uL (0.0-0.2); #Eosinphils 0.1 thou/uL (0.0-0.7); #Lymphocytes 1.4 thou/uL (1.20-3.40); #Monocytes 0.4 thou/uL (0.11-0.59); #Neutrophils 3.7 thou/uL (1.40-6.50); %Lymphocytes 24.5 % (21.0-51.0); %Monocytes 7.5 % (0.0-10.0); Hemoglobin 11.6 g/dL (14.0-18.0); Mean Corpuscular HGB CONC 32.9 g/dL (32.0-36.0); Mean Corpuscular Hemoglobin 31.3 pg (27.0-31.0); Mean Platelet Volume 7.2 fL (7.4-10.4); Platelet Count 301 thou/uL (130-400); RBC Distribution Width 11.1 % (11.5-14.5); Red Blood Cell (RBC) Count 3.71 mill/uL (4.70-6.10); White Blood Cell (WBC) Count 5.7 thou/uL (4.8-10.8)
--- NOTE | 2018-10-10 16:16 | RAD ---
PORTABLE CHEST ONE VIEW: 10/10/2018 3:47 p.m. HISTORY: Stomach cancer. Peripheral edema. FINDINGS: The heart size is normal. No focal areas of consolidation, pneumothoraces, varun pulmonary edema, or large effusions are seen. POS: [facility]
[2018-10-10 16:37] LABS: ALT (SGPT) 28 U/L (8-55); AST (SGOT) 31 U/L (5-34); Albumin 4.1 g/dL (3.5-5.0); Alkaline Phosphatase 90 U/L (40-150); Anion Gap 12 mmol/L (10-20); BUN (Urea Nitrogen) 15 mg/dL (8.4-25.7); Bilirubin, Total 0.3 mg/dL (0.2-1.2); Calc. Creatinine Clearance 0 mL/min (70-130); Calcium 9.7 mg/dL (7.8-10.44); Carbon Dioxide 30 mmol/L (22-29); Chloride 102 mmol/L (98-107); Estimated GFR-MDRD Greater than 90; Globulin 3.1 g/dL (2.4-3.5); Glucose 150 mg/dL (70-105); Potassium 3.9 mmol/L (3.5-5.1); Protein, Total 7.2 g/dL (6.0-8.3); Sodium 140 mmol/L (136-145)
--- NOTE | 2018-10-10 18:49 | RAD ---
RIGHT FOOT THREE VIEWS: HISTORY: Foot swelling and foot ulcer. FINDINGS: There are arthritic changes of the first metatarsophalangeal joint. There are also some arthritic ch anges of the ankle, and there are some calcaneal spurs present. Soft tissue swelling is seen on the dorsum of the foot. I do not see any plain film evidence for osteomyelitis. IMPRESSION: No acute changes. POS: [facility]
[2018-10-10] MEDS ORDERED: Enoxaparin Sodium 30 MG/0.3 ML SYRINGE ONE (19:44)
[2018-10-10] MEDS ORDERED: Enoxaparin Sodium 60 MG/0.6 ML SYRINGE ONE (19:44)
[2018-10-10 19:45] LABS: INR-International Normal Ratio 1.1; PTT 37.2 SEC (22.9-36.1); Prothrombin Time 14.4 SEC (12.0-14.7)
--- NOTE | 2018-10-10 19:58 | ULT ---
BILATERAL LOWER EXTREMITY VENOUS DUPLEX EXAM: HISTORY: Bilateral lower extremity edema. TECHNIQUE: Real-time color Doppler evaluation of the right and left lower extremities was performed from the blanche in to the calf. This includes evaluation of the common femoral, superficial femoral, profunda femora l, saphenous, popliteal, and posterior tibial veins. FINDINGS: On the right side, there is a patent deep venous system with normal compressibility and augmentation. On the left side, there is some nonocclusive thrombus within the proximal thigh and the proximal supe rficial femoral vein level. The remainder of the deep venous system is patent. IMPRESSION: 1. Fairly small focus of nonocclusive thrombus in the proximal superficial femoral vein and proximal thigh. 2. No evidence of deep venous thrombosis of the right lower extremity. POS: [facility]
[2018-10-10] MEDS ORDERED: Cyclobenzaprine 10 MG TAB PO PRN (21:32)
[2018-10-10] MEDS ORDERED: Acetaminophen 325 MG TAB PO PRN (21:32)
[2018-10-10 22:52] VITALS: BMI 25.7
--- NOTE | 2018-10-10 23:59 | HP ---
CHIEF COMPLAINT: Lower extremity swelling. 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 The patient states that since he has been on this medication, he has not really been able to ambulate very much, only transfers from bed to the commode and very limited mobility. The patient states that he has been noticing worsening lower extremity edema, which has been going on for quite some time. However, in the last couple of days, he has noticed some worse more swelling in his bilateral lower extremities. The patient denies any fevers or chills or any shortness of breath, nausea, vomiting, or diarrhea. The patient in the ED did have a Doppler, which indicated a superficial DVT to his left lower extremity. PAST MEDICAL HISTORY: 1. History of hypertension. 2. GIST tumor. PAST SURGICAL HISTORY: He has had no surgeries. SOCIAL HISTORY: The patient is a former smoker, however, currently does not smoke. Denies any alcohol use or drug use. The patient is currently a full code. Lives with his family. REVIEW OF SYSTEMS: All negative except for the ones mentioned above in the HPI. FAMILY HISTORY: Negative for any cancer or heart disease. MEDICATIONS: As of the following; he takes Gleevec 100 mg daily, lisinopril/hydrochlorothiazide 1 p.o. daily strength 20 mg/25 mg. ALLERGIES: HE HAS NO KNOWN DRUG ALLERGIES. PHYSICAL EXAMINATION: VITAL SIGNS: As of the following; temperature of 99.6, pulse is 93, respirations 16, 98% on room air and blood pressure 127/76. GENERAL: He is awake, alert, and oriented x3. Does not appear in any distress. HEENT: Normocephalic, atraumatic. No lymphadenopathy noted. CVS: S1, S2 present. No murmurs, rubs, or gallops. ABDOMEN: Soft and nontender. Bowel sounds are present x2. No hepatomegaly or splenomegaly noted. EXTREMITIES: He does have +1 lower extremity edema, mild. Bilateral lower extremities are warm to touch. The patient has limited mobility in both his extremities. Neurovascular flores, bilateral upper extremity strength intact. Sensation intact. Lower extremity, the patient is barely able to raise both his feet above the ground. Sensation is intact to lower extremities bilaterally. PSYCH: His affect is normal. Does not appear to be in distress. The patient is oriented x3. SKIN: The patient does have a small scab noted on his right dorsal aspect of his foot. I do not see any erythema, but it just looks like it was a blister and now the patient states that blister actually popped, so it just has a little bit of redness, but no erythema around that area. LABORATORY RESULTS: As of the following; WBC is 5.7, hemoglobin of 11.6, hematocrit of 35.2 and his platelets are 301. Chemistries; sodium of 140, potassium of 3.9, BUN of 15, creatinine of 0.63. The patient did have a venogram of the lower extremity, which indicated that he does have a fairly small focus of nonocclusive thrombus in the proximal superficial femoral vein and the proximal thigh. Also, he had a chest x-ray and a foot x-ray. The chest x-ray did not indicate any acute abnormalities. The foot x-ray that he had also no acute abnormalities were noted, it just indicated some arthritic changes in the ankle. This was of his right foot. ASSESSMENT AND PLAN: The patient is a very pleasant 57-year-old male who presents to the hospital with complaints of bilateral lower extremity swelling. 1. Left lower extremity deep venous thrombosis, superficial. However, given the patient's immobility, we will start the patient on Lovenox subcutaneous b.i.d. and the patient may be transitioned to oral anticoagulation on discharge. 2. History of gastrointestinal stromal tumor. We will continue his home medications. 3. Anemia, looks like the patient is a little bit around his baseline. We will continue to monitor. 4. Deep venous thrombosis prophylaxis. The patient is already on Lovenox subcutaneous. Job ID: [id number]
[2018-10-11] MEDS: HYDROcodone/Acetaminophen 5/325 mg Tablet PO PRN ×3 (05:50→19:39)
[2018-10-11 06:28] LABS: #Basophils 0.1 thou/uL (0.0-0.2); #Eosinphils 0.1 thou/uL (0.0-0.7); #Lymphocytes 2.4 thou/uL (1.20-3.40); #Monocytes 0.5 thou/uL (0.11-0.59); #Neutrophils 3.1 thou/uL (1.40-6.50); %Basophils 0.9 % (0.0-1.0); %Eosinophils 0.8 % (0.0-10.0); %Lymphocytes 39.1 % (21.0-51.0); %Monocytes 8.7 % (0.0-10.0); %Neutrophils 50.4 % (42.0-75.0); Hemoglobin 10.5 g/dL (14.0-18.0); Mean Corpuscular HGB CONC 31.9 g/dL (32.0-36.0); Mean Corpuscular Volume 94.2 fL (78.0-98.0); Mean Platelet Volume 7.3 fL (7.4-10.4); Platelet Count 282 thou/uL (130-400); RBC Distribution Width 11.1 % (11.5-14.5); White Blood Cell (WBC) Count 6.2 thou/uL (4.8-10.8)
[2018-10-11 06:48] LABS: Anion Gap 10 mmol/L (10-20); BUN (Urea Nitrogen) 14 mg/dL (8.4-25.7); Calc. Creatinine Clearance 186 mL/min (70-130); Calcium 9.4 mg/dL (7.8-10.44); Carbon Dioxide 29 mmol/L (22-29); Chloride 106 mmol/L (98-107); Estimated GFR-MDRD Greater than 90; Glucose 103 mg/dL (70-105); Potassium 4.1 mmol/L (3.5-5.1); Sodium 141 mmol/L (136-145)
[2018-10-11] MEDS ORDERED: Prevnar 13-Val Conj/PF 0.5 ML SYRINGE IM ONE (09:00)
[2018-10-11] MEDS: Diazepam 5 MG TAB PO SCH ×2 (09:00→19:43)
[2018-10-11] MEDS: Lisinopril 10 MG TAB PO SCH (09:02)
[2018-10-11] MEDS: Enoxaparin Sodium 100 MG/ML SYRINGE SC SCH ×2 (09:02→19:40)
--- NOTE | 2018-10-11 13:47 | CON ---
DATE OF CONSULTATION: REASON FOR CONSULTATION: Gastrointestinal stromal tumor. HISTORY OF PRESENT ILLNESS: Mr. Marsh is a pleasant 57-year-old male, who was diagnosed in April of 2018 with gastrointestinal stromal tumor. CT scan in March showed a mass measuring 14.5 x 9 x 14.5 cm in the anterior peritoneal cavity centered to the right of midline. Biopsy confirmed GIST tumor. The patient was having lower extremity weakness at that time. Neurosurgery saw the patient. No medical intervention was recommended. He was started on Gleevec and has been on Gleevec now for 4 months. Recent ultrasound showed mildly decreased size of his tumor. He has not been able to have a CT scan since diagnosis due to no insurance. He has been wheelchair bound with chronic bilateral lower extremity edema; however, yesterday, he presented to the emergency room with worsening pain of his legs. A venous doppler ultrasound was performed. It showed a small focus of nonocclusive thrombus in the proximal superficial femoral vein and in the proximal thigh. There was no DVT on the right. The patient was admitted for pain and further evaluation. On evaluation, he denies any shortness of breath or chest pain. He has a good appetite. No problems with bowel movements. He continues to have bilateral lower extremity weakness and motor weakness. He does have sensation intact. He is able to move his extremities. He has warmness to touch on his left thigh. He has been given a dose of therapeutic Lovenox. PAST MEDICAL HISTORY: 1. Large gastrointestinal stromal tumor. 2. Chronic bilateral lower extremity edema and weakness. 3. Hypertension. PAST SURGICAL HISTORY: Abdominal mass biopsy. ALLERGIES: NO KNOWN DRUG ALLERGIES. HOME MEDICATIONS: 1. Gleevec 400 mg daily. 2. Lisinopril/hydrochlorothiazide daily. 3. Naproxen 500 mg daily. 4. Ultram p.r.n. FAMILY HISTORY: Positive for hypertension, asthma, and blood clots. SOCIAL HISTORY: . Former smoker. No alcohol or illicit drug use. REVIEW OF SYSTEMS: A 10-point review of systems is negative except as noted in the HPI. PHYSICAL EXAMINATION: VITAL SIGNS: Temperature is 98.0, pulse is 78, respiratory rate 16, and blood pressure is 154/75. He is 95% on room air. GENERAL: Well-developed, well-nourished male, in no acute distress. HEENT: Normocephalic and atraumatic. Pupils are equal and reactive to light. NECK: Supple. CV: He has a regular rate and rhythm. LUNGS: Clear. ABDOMEN: Obese, nontender. Bowel sounds are positive. EXTREMITIES: He has 1+ bilateral lower extremity edema. HEMATOLOGIC: There are no petechiae or purpura. NEUROLOGIC: Nonfocal. PSYCHIATRIC: The patient is alert, oriented, and appropriate. LABORATORY DATA: Pertinent labs and x-rays: Current WBCs are 6.2, hemoglobin 10.5, hematocrit 32.5, and platelet count is 282,000. He has got 50% neutrophils and 39% lymphocytes. PT is 14.4, INR 1.1, and PTT is 37.2. Sodium is 141, potassium 4.1, chloride 106, CO2 is 29, BUN is 14, creatinine is 0.54, and calcium is 9.4. Foot x-ray and chest x-ray within normal limits. Venogram per HPI. ASSESSMENT: 1. Gastrointestinal stromal tumor. 2. Superficial deep vein thrombosis on the left lower extremity. 3. Chronic bilateral lower extremity edema and motor weakness. DISCUSSION: The patient will continue Gleevec using his home medications. We will restage with the CT scan of the abdomen and pelvis. Given the patient's immobility and malignancy, he is a high risk for progression of thrombus with DVT. Recommend anticoagulation with Coumadin. Once therapeutic, he can be discharged. He has an appointment with Dr. Hays on October 20. Further treatment recommendations can be made at that time. Thank you for the consult. Job ID: [id number]
--- NOTE | 2018-10-11 13:52 | PDOC.PN ---
- Subjective Encounter Start Date: 10/11/18 Encounter Start Time: 13:50 Patient lying in bed with several family at bedside. He reports doing well today. He denies chest pain, shortness of breath or abdominal pain. He denies events over night. He continues on lovenox for anticoagulation for superficial thrombosis as he is high risk due to bed bound. - Objective Resuscitation Status - Order Detail: 10/10/18 21:32 Resuscitation Status Routine Resuscitation Status: FULL: Full Resuscitation MAR Reviewed: Yes Vital Signs & Weight: Vital Signs (12 hours) Temp Pulse Resp BP BP Pulse Ox 10/11/18 09:02 124/75 10/11/18 08:00 94 L 10/11/18 07:40 98.0 F 78 16 124/75 95 10/11/18 04:00 98.0 F 93 20 110/72 96 Weight Weight 199 lb 15.348 oz I&O: 10/10/18 10/11/18 10/12/18 06:59 06:59 06:59 Intake Total 240 Balance 240 Result Diagrams: 10/11/18 06:07 10/11/18 06:07 Radiology Reviewed by me: Yes EKG Reviewed by me: Yes Phys Exam - Physical Examination Constitutional: NAD HEENT: PERRLA, moist MMs, oral pharynx no lesions Neck: no nodes, no JVD, supple, full ROM Respiratory: no wheezing, no rales, clear to auscultation bilateral Cardiovascular: RRR, no significant murmur, no rub Gastrointestinal: soft, non-tender Distension noted, no rebound, no guarding Musculoskeletal: pulses present 1-2+ nonpitting edema lower extremities Neurological: non-focal, normal sensation, moves all 4 limbs Lymphatic: no nodes Psychiatric: normal affect, A&O x 3 Skin: no rash, normal turgor, cap refill <2 seconds Dx/Plan (1) Superficial thrombosis of leg Code(s): I82.819 - EMBOLISM AND THROMBOSIS OF SUPERFICIAL VN UNSP LOW EXTRM Status: Acute (2) Abdominal mass Code(s): R19.00 - INTRA-ABD AND PELVIC SWELLING, MASS AND LUMP, UNSP SITE Status: Acute Qualifiers: Abdominal location: unspecified location Qualified Code(s): R19.00 - Intra- abdominal and pelvic swelling, mass and lump, unspecified site Comment: Concerns for possible malignancy. Oncology on board. General surgery consulted for possible tumor excision. (3) HTN (hypertension) Code(s): I10 - ESSENTIAL (PRIMARY) HYPERTENSION Status: Chronic Qualifiers: Hypertension type: essential hypertension Qualified Code(s): I10 - Essential (primary) hypertension (4) Weakness of both lower extremities Code(s): R29.898 - OTH SYMPTOMS AND SIGNS INVOLVING THE MUSCULOSKELETAL SYSTEM Status: Chronic Comment: Nothing acute found on MRIs- degenerative L spine changes. PT/OT and hospitality services manager consulted. Will likely need [facility] in [facility]. - Plan cont current plan of care, plan discussed w/ family, DVT proph w/lovenox * Continue Lovenox, case discussed with oncology who recommend Warfarin as patient is high risk due to being bed bound. Will start 5mg and monitor PT/INR for further adjustments * Continue other home medications * Await CT per oncology * No signs of bleeding, monitor H&H
[2018-10-11 14:20] LABS: INR-International Normal Ratio 1.3; PTT 43.7 SEC (22.9-36.1); Prothrombin Time 15.8 SEC (12.0-14.7)
--- NOTE | 2018-10-11 14:42 | CT ---
CT ABDOMEN AND PELVIS WITH ORAL AND IV CONTRAST: Date: 10/11/18 HISTORY: GIST follow-up. COMPARISON: 04/15/18. FINDINGS: There are dependent changes in the lung bases. Tiny low density lesions in the liver are stable. The liver, pancreas, adrenal glands, and kidneys are normal. No calcified gallstones are seen. The previously noted right anterior peritoneal mass is smaller, measuring 10.0 x 7.0 x 8.5 cm. No abd ominal or pelvic lymphadenopathy or new masses are seen. A small hiatal hernia is present. The small bowel loops are not abnormally dilated. A normal appearing appendix is seen. No free air is seen. A small amount of free fluid is seen in the right lower quadrant. There are vasc ular calcifications without evidence of aneurysmal dilatation of the abdominal aorta. There are degenerative changes in the spine. Sclerotic and lucent changes in the right hemipelvis wit h slightly expanded bone (Paget's disease or fibrous dysplasia) are stable. IMPRESSION: Interval reduction in size of the abdominal mass since 04/15/18. POS: [facility]
[2018-10-11] MEDS: Warfarin Sodium 5 MG TAB PO SCH (18:08)
[2018-10-12 07:13] LABS: Hemoglobin 10.6 g/dL (14.0-18.0); Platelet Count 283 thou/uL (130-400)
[2018-10-12 07:20] LABS: INR-International Normal Ratio 1.2; Prothrombin Time 14.8 SEC (12.0-14.7)
[2018-10-12 07:21] LABS: PTT 38.7 SEC (22.9-36.1)
[2018-10-12 07:40] LABS: Calc. Creatinine Clearance 192 mL/min (70-130); Estimated GFR-MDRD Greater than 90
[2018-10-12] MEDS: Diazepam 5 MG TAB PO SCH ×2 (09:20→20:43)
[2018-10-12] MEDS: Lisinopril 10 MG TAB PO SCH (09:20)
[2018-10-12] MEDS: GLEEVEC 400 MG PO SCH (09:21)
[2018-10-12] MEDS: Enoxaparin Sodium 100 MG/ML SYRINGE SC SCH ×2 (09:21→20:43)
--- NOTE | 2018-10-12 16:06 | PDOC.PN ---
- Subjective Encounter Start Date: 10/12/18 Encounter Start Time: 16:04 Patient lying in bed with family member at bedside. He denies any events over night. Denies chest pain, shortness of breath or abdominal pain. He reports leg pain is improved today. He worked with therapy earlier and tolerated well. He remains on Coumadin and tolerating well, he denies any blood in urine or stool and other form of bleeding at this time. - Objective Resuscitation Status - Order Detail: 10/10/18 21:32 Resuscitation Status Routine Resuscitation Status: FULL: Full Resuscitation MAR Reviewed: Yes Vital Signs & Weight: Vital Signs (12 hours) Temp Pulse Resp BP BP Pulse Ox 10/12/18 09:20 124/75 10/12/18 08:09 98.2 F 83 16 172/73 H 92 L Weight Weight 199 lb 15.348 oz I&O: 10/11/18 10/12/18 10/13/18 06:59 06:59 06:59 Intake Total 1320 480 Balance 1320 480 Result Diagrams: 10/12/18 05:49 10/12/18 05:49 Radiology Reviewed by me: Yes Phys Exam - Physical Examination Constitutional: NAD HEENT: PERRLA, moist MMs, oral pharynx no lesions Neck: no nodes, no JVD, supple Respiratory: no wheezing, no rales, no rhonchi, clear to auscultation bilateral Cardiovascular: RRR, no significant murmur, no rub Gastrointestinal: soft, non-tender, positive bowel sounds 1+ edema bilateral LE Neurological: non-focal, normal sensation, moves all 4 limbs Lymphatic: no nodes Psychiatric: normal affect, A&O x 3 Skin: no rash, normal turgor, cap refill <2 seconds Dx/Plan (1) Superficial thrombosis of leg Code(s): I82.819 - EMBOLISM AND THROMBOSIS OF SUPERFICIAL VN UNSP LOW EXTRM Status: Acute (2) Abdominal mass Code(s): R19.00 - INTRA-ABD AND PELVIC SWELLING, MASS AND LUMP, UNSP SITE Status: Acute Qualifiers: Abdominal location: unspecified location Qualified Code(s): R19.00 - Intra- abdominal and pelvic swelling, mass and lump, unspecified site Comment: Concerns for possible malignancy. Oncology on board. General surgery consulted for possible tumor excision. (3) HTN (hypertension) Code(s): I10 - ESSENTIAL (PRIMARY) HYPERTENSION Status: Chronic Qualifiers: Hypertension type: essential hypertension Qualified Code(s): I10 - Essential (primary) hypertension (4) Weakness of both lower extremities Code(s): R29.898 - OTH SYMPTOMS AND SIGNS INVOLVING THE MUSCULOSKELETAL SYSTEM Status: Chronic Comment: Nothing acute found on MRIs- degenerative L spine changes. PT/OT and game manager consulted. Will likely need placement in [facility]. - Plan cont current plan of care, plan discussed w/ family, PT/OT, DVT proph w/lovenox * Continue Warfarin and bridging with lovenox. INR 1.2 will check daily with goal of 2-3 * Oncology recommending he remain in hospital until therapeutic * Continue other home medications * CT abdomen did show improvement of tumor size
[2018-10-12] MEDS: Warfarin Sodium 5 MG TAB PO SCH (17:49)
[2018-10-13] MEDS: Lisinopril 10 MG TAB PO SCH (08:28)
[2018-10-13] MEDS: Diazepam 5 MG TAB PO SCH ×2 (08:28→19:54)
[2018-10-13] MEDS: GLEEVEC 400 MG PO SCH (08:29)
[2018-10-13 08:31] LABS: INR-International Normal Ratio 1.2; Prothrombin Time 15.5 SEC (12.0-14.7)
[2018-10-13 08:32] LABS: PTT 38.3 SEC (22.9-36.1)
[2018-10-13] MEDS: Enoxaparin Sodium 100 MG/ML SYRINGE SC SCH ×2 (08:34→19:54)
[2018-10-13] MEDS: HYDROcodone/Acetaminophen 5/325 mg Tablet PO PRN ×2 (14:18→19:54)
[2018-10-13] MEDS: Warfarin Sodium 5 MG TAB PO SCH (16:37)
--- NOTE | 2018-10-13 18:07 | PDOC.PN ---
- Subjective Encounter Start Date: 10/13/18 Encounter Start Time: 16:00 Subjective: Patient resting comfortably. Tolerating PO intake. RLE discomfort. -: Afebrile, no n/v or abdo pain. No bowel changes or urinary symptoms. -: Continues with bilateral leg swelling, significantly improved. Patient started on Coumadin, received 3rd dose this afternoon at 5pm. INR 1.2 this morning. - Objective Resuscitation Status - Order Detail: 10/10/18 21:32 Resuscitation Status Routine Resuscitation Status: FULL: Full Resuscitation MAR Reviewed: Yes Vital Signs & Weight: Vital Signs (12 hours) Temp Pulse Resp BP BP Pulse Ox 10/13/18 08:28 124/75 10/13/18 08:00 98.1 F 93 16 128/85 96 Weight Weight 199 lb 15.348 oz I&O: 10/12/18 10/13/18 10/14/18 06:59 06:59 06:59 Intake Total 1320 1440 960 Balance 1320 1440 960 Result Diagrams: 10/12/18 05:49 10/12/18 05:49 Phys Exam - Physical Examination Constitutional: NAD HEENT: PERRLA, moist MMs, oral pharynx no lesions Neck: no nodes, no JVD, supple, full ROM Respiratory: no wheezing, clear to auscultation bilateral Cardiovascular: RRR, no significant murmur Gastrointestinal: soft, non-tender, no distention Musculoskeletal: pulses present bilateral lower extremity swelling, mild tenderness to palpation. Neurological: normal sensation Psychiatric: normal affect, A&O x 3 Deviation from normal: healing blister on right dorsal foot surface. Dx/Plan (1) Bilateral lower extremity edema Code(s): R60.0 - LOCALIZED EDEMA Status: Acute (2) Superficial thrombosis of leg Code(s): I82.819 - EMBOLISM AND THROMBOSIS OF SUPERFICIAL VN UNSP LOW EXTRM Status: Acute Qualifiers: Laterality: left Qualified Code(s): I82.812 - Embolism and thrombosis of superficial veins of left lower extremity (3) Abdominal mass Code(s): R19.00 - INTRA-ABD AND PELVIC SWELLING, MASS AND LUMP, UNSP SITE Status: Acute Qualifiers: Abdominal location: unspecified location Qualified Code(s): R19.00 - Intra- abdominal and pelvic swelling, mass and lump, unspecified site Comment: Concerns for possible malignancy. Oncology on board. General surgery consulted for possible tumor excision. (4) HTN (hypertension) Code(s): I10 - ESSENTIAL (PRIMARY) HYPERTENSION Status: Chronic Qualifiers: Hypertension type: essential hypertension Qualified Code(s): I10 - Essential (primary) hypertension (5) Weakness of both lower extremities Code(s): R29.898 - OTH SYMPTOMS AND SIGNS INVOLVING THE MUSCULOSKELETAL SYSTEM Status: Chronic Comment: Nothing acute found on MRIs- degenerative L spine changes. PT/OT and manager harbor consulted. Will likely need placement in [facility]. - Plan cont current plan of care, plan discussed w/ family S/p coumadin 5 mg x 3. Recheck INR tomorrow, consider increasing to 7.5 mg. -: Continue PT. -: Continue treatment for GIST. -: Discharge home pending therapeutic INR. * .
[2018-10-14 07:27] LABS: #Basophils 0.1 thou/uL (0.0-0.2); #Eosinphils 0.1 thou/uL (0.0-0.7); #Lymphocytes 1.5 thou/uL (1.20-3.40); #Monocytes 0.8 thou/uL (0.11-0.59); #Neutrophils 3.2 thou/uL (1.40-6.50); %Eosinophils 1.2 % (0.0-10.0); %Lymphocytes 26.7 % (21.0-51.0); %Monocytes 14.3 % (0.0-10.0); %Neutrophils 56.8 % (42.0-75.0); Hemoglobin 10.1 g/dL (14.0-18.0); Mean Corpuscular HGB CONC 32.4 g/dL (32.0-36.0); Mean Corpuscular Hemoglobin 30.4 pg (27.0-31.0); Mean Corpuscular Volume 94.1 fL (78.0-98.0); Mean Platelet Volume 7.3 fL (7.4-10.4); Platelet Count 272 thou/uL (130-400); RBC Distribution Width 11.1 % (11.5-14.5); Red Blood Cell (RBC) Count 3.31 mill/uL (4.70-6.10); White Blood Cell (WBC) Count 5.7 thou/uL (4.8-10.8)
[2018-10-14 07:34] LABS: INR-International Normal Ratio 1.2
[2018-10-14 07:35] LABS: PTT 39.9 SEC (22.9-36.1)
[2018-10-14 07:49] LABS: Anion Gap 10 mmol/L (10-20); BUN (Urea Nitrogen) 13 mg/dL (8.4-25.7); Calc. Creatinine Clearance 189 mL/min (70-130); Calcium 8.7 mg/dL (7.8-10.44); Carbon Dioxide 27 mmol/L (22-29); Chloride 106 mmol/L (98-107); Estimated GFR-MDRD Greater than 90; Glucose 91 mg/dL (70-105); Potassium 4.1 mmol/L (3.5-5.1); Sodium 139 mmol/L (136-145)
[2018-10-14] MEDS: Lisinopril 10 MG TAB PO SCH (08:58)
[2018-10-14] MEDS: Diazepam 5 MG TAB PO SCH ×2 (09:00→20:13)
[2018-10-14] MEDS: Enoxaparin Sodium 100 MG/ML SYRINGE SC SCH ×2 (09:00→20:13)
[2018-10-14] MEDS: GLEEVEC 400 MG PO SCH (09:01)
[2018-10-14] MEDS: HYDROcodone/Acetaminophen 5/325 mg Tablet PO PRN (09:09)
[2018-10-14] MEDS ORDERED: Warfarin Sodium 7.5 MG TAB PO SCH (17:00)
--- NOTE | 2018-10-14 18:58 | PDOC.PN ---
- Subjective Encounter Start Date: 10/14/18 Encounter Start Time: 16:56 Subjective: Patient stable. No complaints. Continues with BLE edema. R>L. -: Left DVT. On coumadin. Remains with INR of 1.2. -: Continues with PT. Bedridden due to weakness in lower legs. - Objective Resuscitation Status - Order Detail: 10/10/18 21:32 Resuscitation Status Routine Resuscitation Status: FULL: Full Resuscitation Vital Signs & Weight: Vital Signs (12 hours) Temp Pulse Resp BP BP Pulse Ox 10/14/18 16:00 97.9 F 87 18 110/72 96 10/14/18 11:00 98.3 F 93 18 107/74 95 10/14/18 08:58 121/80 10/14/18 07:59 98.0 F 76 18 121/80 95 Weight Weight 199 lb 15.348 oz I&O: 10/13/18 10/14/18 10/15/18 06:59 06:59 06:59 Intake Total 1440 1440 800 Output Total 720 Balance 1440 1440 80 Result Diagrams: 10/14/18 07:05 10/14/18 07:05 Phys Exam - Physical Examination Constitutional: NAD HEENT: PERRLA, sclera anicteric, oral pharynx no lesions Neck: no nodes, supple, full ROM Respiratory: clear to auscultation bilateral Cardiovascular: RRR Gastrointestinal: soft, non-tender, no distention edema in lower extremities, Right > left. Right leg +1 pitting. no back pain. Neurological: non-focal, normal sensation Reduced strength and mobility in bilateral legs, worse in the right. Psychiatric: normal affect, A&O x 3 Skin: no rash Dx/Plan (1) Bilateral lower extremity edema Code(s): R60.0 - LOCALIZED EDEMA Status: Acute (2) Superficial thrombosis of leg Code(s): I82.819 - EMBOLISM AND THROMBOSIS OF SUPERFICIAL VN UNSP LOW EXTRM Status: Acute Qualifiers: Laterality: left Qualified Code(s): I82.812 - Embolism and thrombosis of superficial veins of left lower extremity (3) Abdominal mass Code(s): R19.00 - INTRA-ABD AND PELVIC SWELLING, MASS AND LUMP, UNSP SITE Status: Acute Qualifiers: Abdominal location: unspecified location Qualified Code(s): R19.00 - Intra- abdominal and pelvic swelling, mass and lump, unspecified site Comment: Concerns for possible malignancy. Oncology on board. General surgery consulted for possible tumor excision. (4) HTN (hypertension) Code(s): I10 - ESSENTIAL (PRIMARY) HYPERTENSION Status: Chronic Qualifiers: Hypertension type: essential hypertension Qualified Code(s): I10 - Essential (primary) hypertension (5) Weakness of both lower extremities Code(s): R29.898 - OTH SYMPTOMS AND SIGNS INVOLVING THE MUSCULOSKELETAL SYSTEM Status: Chronic Comment: Nothing acute found on MRIs- degenerative L spine changes. PT/OT and manager intensive care unit consulted. Will likely need placement in [place]. - Plan cont current plan of care, PT/OT Coumadin increased to 7.5 mg PO. -: Recheck INR tomorrow. -: For discharge once INR therapeutic. * .
[2018-10-15 06:31] LABS: #Basophils 0.1 thou/uL (0.0-0.2); #Eosinphils 0.1 thou/uL (0.0-0.7); #Lymphocytes 1.8 thou/uL (1.20-3.40); #Monocytes 0.8 thou/uL (0.11-0.59); #Neutrophils 2.8 thou/uL (1.40-6.50); %Basophils 1.2 % (0.0-1.0); %Monocytes 13.7 % (0.0-10.0); %Neutrophils 51.2 % (42.0-75.0); Hemoglobin 10.1 g/dL (14.0-18.0); Mean Corpuscular Hemoglobin 30.3 pg (27.0-31.0); Mean Corpuscular Volume 94.8 fL (78.0-98.0); Mean Platelet Volume 7.6 fL (7.4-10.4); Platelet Count 285 thou/uL (130-400); RBC Distribution Width 11.2 % (11.5-14.5); Red Blood Cell (RBC) Count 3.34 mill/uL (4.70-6.10); White Blood Cell (WBC) Count 5.5 thou/uL (4.8-10.8)
[2018-10-15 06:34] LABS: INR-International Normal Ratio 1.2; PTT 40.7 SEC (22.9-36.1); Prothrombin Time 15.3 SEC (12.0-14.7)
[2018-10-15 06:53] LABS: Anion Gap 10 mmol/L (10-20); BUN (Urea Nitrogen) 11 mg/dL (8.4-25.7); Calc. Creatinine Clearance 173 mL/min (70-130); Calcium 8.7 mg/dL (7.8-10.44); Carbon Dioxide 27 mmol/L (22-29); Chloride 106 mmol/L (98-107); Estimated GFR-MDRD Greater than 90; Glucose 94 mg/dL (70-105); Potassium 3.9 mmol/L (3.5-5.1); Sodium 139 mmol/L (136-145)
[2018-10-15] MEDS: Diazepam 5 MG TAB PO SCH ×2 (08:40→19:59)
[2018-10-15] MEDS: Enoxaparin Sodium 100 MG/ML SYRINGE SC SCH ×2 (08:40→19:59)
[2018-10-15] MEDS: Lisinopril 10 MG TAB PO SCH (08:40)
[2018-10-15] MEDS: GLEEVEC 400 MG PO SCH (08:42)
--- NOTE | 2018-10-15 15:26 | EKG ---
Test Reason : COLIN EDEMA Blood Pressure : / mmHG Vent. Rate : 072 BPM Atrial Rate : 066 BPM P-R Int : 000 ms QRS Dur : 090 ms QT Int : 376 ms P-R-T Axes : 000 010 002 degrees QTc Int : 411 ms Normal sinus rhythm Nonspecific T wave abnormality Nonspecific T wave changes Abnormal ECG Confirmed by SINGH Sotelo, TAD ([id number]), sound editor KEYANNA GERARD ([id number]) on 10/15/2018 3:26:29 PM Referred By: ERMD Confirmed By:TAD WINTERS M.D.
--- NOTE | 2018-10-15 16:58 | PDOC.PN ---
- Subjective Encounter Start Date: 10/15/18 Encounter Start Time: 15:46 Subjective: Patient sat upright on the side of the bed. Feeling well, no new complaints -: Continues with PT. Still has lower leg edema, R>L. -: Has been following exercises. No n/v or abdo pain. Eatin/drinking. - Objective Resuscitation Status - Order Detail: 10/10/18 21:32 Resuscitation Status Routine Resuscitation Status: FULL: Full Resuscitation Vital Signs & Weight: Vital Signs (12 hours) Temp Pulse Resp BP Pulse Ox 10/15/18 07:49 97.9 F 72 18 142/80 H 97 Weight Weight 199 lb 15.348 oz I&O: 10/14/18 10/15/18 10/16/18 06:59 06:59 06:59 Intake Total 1440 800 Output Total 1495 Balance 1440 -695 Result Diagrams: 10/15/18 05:48 10/15/18 05:48 Phys Exam - Physical Examination Constitutional: NAD HEENT: PERRLA, moist MMs Neck: no nodes, supple, full ROM Respiratory: no wheezing, clear to auscultation bilateral Cardiovascular: RRR Gastrointestinal: soft, non-tender, no distention bilateral edema R> L reduced strength on right side. Normal sensation. Neurological: non-focal Psychiatric: normal affect, A&O x 3 Skin: no rash Dx/Plan (1) Bilateral lower extremity edema Code(s): R60.0 - LOCALIZED EDEMA Status: Acute (2) Superficial thrombosis of leg Code(s): I82.819 - EMBOLISM AND THROMBOSIS OF SUPERFICIAL VN UNSP LOW EXTRM Status: Acute Qualifiers: Laterality: left Qualified Code(s): I82.812 - Embolism and thrombosis of superficial veins of left lower extremity (3) Abdominal mass Code(s): R19.00 - INTRA-ABD AND PELVIC SWELLING, MASS AND LUMP, UNSP SITE Status: Acute Qualifiers: Abdominal location: unspecified location Qualified Code(s): R19.00 - Intra- abdominal and pelvic swelling, mass and lump, unspecified site Comment: Concerns for possible malignancy. Oncology on board. General surgery consulted for possible tumor excision. (4) HTN (hypertension) Code(s): I10 - ESSENTIAL (PRIMARY) HYPERTENSION Status: Chronic Qualifiers: Hypertension type: essential hypertension Qualified Code(s): I10 - Essential (primary) hypertension (5) Weakness of both lower extremities Code(s): R29.898 - OT SYMPTOMS AND SIGNS INVOLVING THE MUSCULOSKELETAL SYSTEM Status: Chronic Comment: Nothing acute found on MRIs- degenerative L spine changes. PT/OT and it account manager consulted. Will likely need placement in [place]. - Plan cont current plan of care, PT/OT INR 1.2, Coumadin increased to 10 mg PO daily. -: Recheck INR tomorrow AM. -: Continue PT. Per CSM, possible candidate for TIP re: continued need for -: PT (patient uninsured). Paperwork filled out. * .
[2018-10-15] MEDS: Warfarin Sodium 10 MG TAB PO SCH (17:08)
[2018-10-15] MEDS: HYDROcodone/Acetaminophen 5/325 mg Tablet PO PRN (22:51)
[2018-10-16 08:06] LABS: INR-International Normal Ratio 1.2; PTT 40.2 SEC (22.9-36.1); Prothrombin Time 14.9 SEC (12.0-14.7)
[2018-10-16 08:09] LABS: Hemoglobin 10.5 g/dL (14.0-18.0); Platelet Count 313 thou/uL (130-400)
[2018-10-16 08:10] LABS: #Basophils 0.1 thou/uL (0.0-0.2); #Eosinphils 0.1 thou/uL (0.0-0.7); #Lymphocytes 1.8 thou/uL (1.20-3.40); #Monocytes 0.6 thou/uL (0.11-0.59); #Neutrophils 2.6 thou/uL (1.40-6.50); %Basophils 1.7 % (0.0-1.0); %Eosinophils 2.2 % (0.0-10.0); %Lymphocytes 35.1 % (21.0-51.0); %Monocytes 11.8 % (0.0-10.0); %Neutrophils 49.2 % (42.0-75.0); Hemoglobin 10.5 g/dL (14.0-18.0); Mean Corpuscular HGB CONC 32.1 g/dL (32.0-36.0); Mean Corpuscular Hemoglobin 30.4 pg (27.0-31.0); Mean Corpuscular Volume 94.7 fL (78.0-98.0); Mean Platelet Volume 7.5 fL (7.4-10.4); Platelet Count 305 thou/uL (130-400); RBC Distribution Width 11.3 % (11.5-14.5); Red Blood Cell (RBC) Count 3.47 mill/uL (4.70-6.10); White Blood Cell (WBC) Count 5.2 thou/uL (4.8-10.8)
[2018-10-16 08:17] LABS: Calc. Creatinine Clearance 189 mL/min (70-130); Estimated GFR-MDRD Greater than 90
[2018-10-16 08:25] LABS: ALT (SGPT) 62 U/L (8-55); AST (SGOT) 44 U/L (5-34); Albumin 3.5 g/dL (3.5-5.0); Alkaline Phosphatase 81 U/L (40-150); Anion Gap 10 mmol/L (10-20); BUN (Urea Nitrogen) 12 mg/dL (8.4-25.7); Bilirubin, Total 0.3 mg/dL (0.2-1.2); Calc. Creatinine Clearance 186 mL/min (70-130); Carbon Dioxide 25 mmol/L (22-29); Chloride 107 mmol/L (98-107); Estimated GFR-MDRD Greater than 90; Globulin 2.9 g/dL (2.4-3.5); Glucose 94 mg/dL (70-105); Potassium 4.1 mmol/L (3.5-5.1); Protein, Total 6.4 g/dL (6.0-8.3); Sodium 138 mmol/L (136-145)
[2018-10-16] MEDS: Enoxaparin Sodium 100 MG/ML SYRINGE SC SCH ×2 (09:52→20:11)
[2018-10-16] MEDS: Diazepam 5 MG TAB PO SCH ×2 (09:52→20:11)
[2018-10-16] MEDS: Lisinopril 10 MG TAB PO SCH (09:52)
[2018-10-16] MEDS: GLEEVEC 400 MG PO SCH (09:54)
[2018-10-16] MEDS: Senokot S 8.6-50 MG TAB PO PRN ×2 (10:05→20:11)
--- NOTE | 2018-10-16 13:59 | PDOC.PN ---
- Subjective Encounter Start Date: 10/16/18 Encounter Start Time: 13:00 Subjective: Patient sat comfortably in bed. No complaints. Decreased lower leg edema. -: No n/v. Tolerating oral intake. No abdo pain. Constipation. -: No blood in stools. No urinary symptoms. Denies CP/Sob. - Objective Resuscitation Status - Order Detail: 10/10/18 21:32 Resuscitation Status Routine Resuscitation Status: FULL: Full Resuscitation Vital Signs & Weight: Vital Signs (12 hours) Temp Pulse Resp BP BP Pulse Ox 10/16/18 09:52 119/81 10/16/18 07:14 98.1 F 79 20 119/81 95 Weight Weight 199 lb 15.348 oz I&O: 10/15/18 10/16/18 10/17/18 06:59 06:59 06:59 Intake Total 800 Output Total 1495 500 Balance -695 -500 Result Diagrams: 10/16/18 07:36 10/16/18 07:36 Phys Exam - Physical Examination Constitutional: NAD HEENT: PERRLA, oral pharynx no lesions Neck: no nodes, full ROM Respiratory: clear to auscultation bilateral Cardiovascular: RRR Gastrointestinal: soft, non-tender, no distention, positive bowel sounds Musculoskeletal: edema present Bilateral lower extremity edema, slightly improved from yesterday. Unchanged otherwise. Neurological: normal sensation Psychiatric: normal affect, A&O x 3 Skin: no rash Dx/Plan (1) Bilateral lower extremity edema Code(s): R60.0 - LOCALIZED EDEMA Status: Acute (2) Superficial thrombosis of leg Code(s): I82.819 - EMBOLISM AND THROMBOSIS OF SUPERFICIAL VN UNSP LOW EXTRM Status: Acute Qualifiers: Laterality: left Qualified Code(s): I82.812 - Embolism and thrombosis of superficial veins of left lower extremity (3) Abdominal mass Code(s): R19.00 - INTRA-ABD AND PELVIC SWELLING, MASS AND LUMP, UNSP SITE Status: Acute Qualifiers: Abdominal location: unspecified location Qualified Code(s): R19.00 - Intra- abdominal and pelvic swelling, mass and lump, unspecified site Comment: Concerns for possible malignancy. Oncology on board. General surgery consulted for possible tumor excision. (4) HTN (hypertension) Code(s): I10 - ESSENTIAL (PRIMARY) HYPERTENSION Status: Chronic Qualifiers: Hypertension type: essential hypertension Qualified Code(s): I10 - Essential (primary) hypertension (5) Weakness of both lower extremities Code(s): R29.898 - OTH SYMPTOMS AND SIGNS INVOLVING THE MUSCULOSKELETAL SYSTEM Status: Chronic Comment: Nothing acute found on MRIs- degenerative L spine changes. PT/OT and mobile product manager consulted. Will likely need placement in [place]. - Plan cont current plan of care Continue Senna BID for constipation. -: Encouraged to increase fluid intake. -: Encouraged to mobilise. Has been undergoing PT. -: INR remains 1.2, despite Coumadin increased to 10 mg. No further increase. -: Recheck coags tomorrow. Consult to Pharm re: Coumadin dosing. Discussed with Dr. Vasquez who agrees with plan as above.
[2018-10-16] MEDS: Warfarin Sodium 10 MG TAB PO SCH (16:40)
[2018-10-16] MEDS: HYDROcodone/Acetaminophen 5/325 mg Tablet PO PRN ×2 (19:04→23:09)
[2018-10-17 05:40] LABS: #Basophils 0.1 thou/uL (0.0-0.2); #Eosinphils 0.1 thou/uL (0.0-0.7); #Lymphocytes 2.3 thou/uL (1.20-3.40); #Monocytes 0.6 thou/uL (0.11-0.59); #Neutrophils 2.9 thou/uL (1.40-6.50); %Basophils 1.3 % (0.0-1.0); %Eosinophils 1.9 % (0.0-10.0); %Lymphocytes 38.5 % (21.0-51.0); %Neutrophils 48.3 % (42.0-75.0); Hemoglobin 10.2 g/dL (14.0-18.0); Mean Corpuscular HGB CONC 33.1 g/dL (32.0-36.0); Mean Corpuscular Hemoglobin 31.1 pg (27.0-31.0); Mean Corpuscular Volume 94.2 fL (78.0-98.0); Mean Platelet Volume 7.1 fL (7.4-10.4); Platelet Count 308 thou/uL (130-400); RBC Distribution Width 11.3 % (11.5-14.5); Red Blood Cell (RBC) Count 3.27 mill/uL (4.70-6.10); White Blood Cell (WBC) Count 6.1 thou/uL (4.8-10.8)
[2018-10-17 05:46] LABS: INR-International Normal Ratio 1.4; PTT 42.9 SEC (22.9-36.1); Prothrombin Time 17.2 SEC (12.0-14.7)
[2018-10-17 06:02] LABS: ALT (SGPT) 67 U/L (8-55); AST (SGOT) 41 U/L (5-34); Albumin 3.4 g/dL (3.5-5.0); Alkaline Phosphatase 76 U/L (40-150); Anion Gap 9 mmol/L (10-20); BUN (Urea Nitrogen) 14 mg/dL (8.4-25.7); Bilirubin, Total 0.3 mg/dL (0.2-1.2); Calc. Creatinine Clearance 176 mL/min (70-130); Calcium 8.9 mg/dL (7.8-10.44); Carbon Dioxide 27 mmol/L (22-29); Chloride 106 mmol/L (98-107); Estimated GFR-MDRD Greater than 90; Globulin 2.8 g/dL (2.4-3.5); Glucose 98 mg/dL (70-105); Potassium 4.2 mmol/L (3.5-5.1); Protein, Total 6.2 g/dL (6.0-8.3); Sodium 138 mmol/L (136-145)
[2018-10-17] MEDS: Senokot S 8.6-50 MG TAB PO PRN ×2 (09:38→20:23)
[2018-10-17] MEDS: Lisinopril 10 MG TAB PO SCH (09:38)
[2018-10-17] MEDS: Enoxaparin Sodium 100 MG/ML SYRINGE SC SCH ×2 (09:39→20:21)
[2018-10-17] MEDS: Diazepam 5 MG TAB PO SCH ×2 (09:39→20:21)
[2018-10-17] MEDS: GLEEVEC 400 MG PO SCH (09:39)
--- NOTE | 2018-10-17 14:13 | PDOC.PN ---
- Subjective Encounter Start Date: 10/17/18 Encounter Start Time: 13:11 Subjective: Patient without any complaints. Found eating and watching TV. -: Encouraged to carry-on with exercises as per PT. Mobility has been limited. -: No chest pain, sob. No DURON, dizziness. No urinary symptoms. - Objective Resuscitation Status - Order Detail: 10/10/18 21:32 Resuscitation Status Routine Resuscitation Status: FULL: Full Resuscitation Vital Signs & Weight: Vital Signs (12 hours) Temp Pulse Resp BP BP Pulse Ox 10/17/18 09:38 104/69 10/17/18 07:24 97.9 F 76 18 104/69 96 Weight Weight 199 lb 15.348 oz I&O: 10/16/18 10/17/18 10/18/18 06:59 06:59 06:59 Intake Total 1250 Output Total 500 1240 Balance -500 10 Result Diagrams: 10/17/18 05:22 10/17/18 05:22 Phys Exam - Physical Examination Constitutional: NAD HEENT: PERRLA, oral pharynx no lesions Neck: no nodes, supple, full ROM Respiratory: clear to auscultation bilateral Cardiovascular: RRR Gastrointestinal: soft, non-tender, no distention Musculoskeletal: edema present slightly improved. Psychiatric: normal affect, A&O x 3 Dx/Plan (1) Bilateral lower extremity edema Code(s): R60.0 - LOCALIZED EDEMA Status: Acute (2) Superficial thrombosis of leg Code(s): I82.819 - EMBOLISM AND THROMBOSIS OF SUPERFICIAL VN UNSP LOW EXTRM Status: Acute Qualifiers: Laterality: left Qualified Code(s): I82.812 - Embolism and thrombosis of superficial veins of left lower extremity (3) Abdominal mass Code(s): R19.00 - INTRA-ABD AND PELVIC SWELLING, MASS AND LUMP, UNSP SITE Status: Acute Qualifiers: Abdominal location: unspecified location Qualified Code(s): R19.00 - Intra- abdominal and pelvic swelling, mass and lump, unspecified site Comment: Concerns for possible malignancy. Oncology on board. General surgery consulted for possible tumor excision. (4) HTN (hypertension) Code(s): I10 - ESSENTIAL (PRIMARY) HYPERTENSION Status: Chronic Qualifiers: Hypertension type: essential hypertension Qualified Code(s): I10 - Essential (primary) hypertension (5) Weakness of both lower extremities Code(s): R29.898 - [facility] SYMPTOMS AND SIGNS INVOLVING THE MUSCULOSKELETAL SYSTEM Status: Chronic Comment: Nothing acute found on MRIs- degenerative L spine changes. PT/OT and curriculum manager consulted. Will likely need placement in [facility]. - Plan cont current plan of care, plan discussed w/ family, PT/OT INR 1.4 today. Remains on Coumadin 10 mg. -: Dosing as per Pharm. -: Encouraged to carry on with exercises as per PT. * .
[2018-10-17] MEDS: Warfarin Sodium 10 MG TAB PO SCH (17:01)
[2018-10-17] MEDS: HYDROcodone/Acetaminophen 5/325 mg Tablet PO PRN (23:20)
[2018-10-18 06:54] LABS: Hemoglobin 10.8 g/dL (14.0-18.0); Platelet Count 347 thou/uL (130-400)
[2018-10-18 06:56] LABS: #Basophils 0.1 thou/uL (0.0-0.2); #Eosinphils 0.1 thou/uL (0.0-0.7); #Lymphocytes 2.2 thou/uL (1.20-3.40); #Monocytes 0.5 thou/uL (0.11-0.59); #Neutrophils 3.1 thou/uL (1.40-6.50); %Basophils 1.7 % (0.0-1.0); %Eosinophils 1.7 % (0.0-10.0); %Lymphocytes 36.4 % (21.0-51.0); %Monocytes 8.6 % (0.0-10.0); %Neutrophils 51.6 % (42.0-75.0); Hemoglobin 10.9 g/dL (14.0-18.0); Mean Corpuscular HGB CONC 32.2 g/dL (32.0-36.0); Mean Corpuscular Hemoglobin 30.5 pg (27.0-31.0); Mean Corpuscular Volume 94.9 fL (78.0-98.0); Mean Platelet Volume 7.3 fL (7.4-10.4); Platelet Count 336 thou/uL (130-400); RBC Distribution Width 11.6 % (11.5-14.5); Red Blood Cell (RBC) Count 3.55 mill/uL (4.70-6.10); White Blood Cell (WBC) Count 6.1 thou/uL (4.8-10.8)
[2018-10-18 06:59] LABS: INR-International Normal Ratio 1.5; Prothrombin Time 18.3 SEC (12.0-14.7)
[2018-10-18 07:00] LABS: PTT 45.5 SEC (22.9-36.1)
[2018-10-18 07:15] LABS: ALT (SGPT) 85 U/L (8-55); AST (SGOT) 53 U/L (5-34); Albumin 3.4 g/dL (3.5-5.0); Alkaline Phosphatase 76 U/L (40-150); Anion Gap 9 mmol/L (10-20); BUN (Urea Nitrogen) 15 mg/dL (8.4-25.7); Bilirubin, Total 0.3 mg/dL (0.2-1.2); Calc. Creatinine Clearance 179 mL/min (70-130); Calcium 9.1 mg/dL (7.8-10.44); Carbon Dioxide 27 mmol/L (22-29); Chloride 106 mmol/L (98-107); Estimated GFR-MDRD Greater than 90; Glucose 87 mg/dL (70-105); Potassium 4.1 mmol/L (3.5-5.1); Protein, Total 6.4 g/dL (6.0-8.3); Sodium 138 mmol/L (136-145)
[2018-10-18] MEDS: Diazepam 5 MG TAB PO SCH ×2 (07:33→19:50)
[2018-10-18] MEDS: Lisinopril 10 MG TAB PO SCH (07:33)
[2018-10-18] MEDS: Enoxaparin Sodium 100 MG/ML SYRINGE SC SCH ×2 (07:34→19:50)
[2018-10-18] MEDS: GLEEVEC 400 MG PO SCH (07:34)
--- NOTE | 2018-10-18 13:34 | PDOC.PN ---
- Subjective Encounter Start Date: 10/18/18 Encounter Start Time: 13:32 Subjective: Resting comfortably in bed. Improvement in lower leg edema. -: Left leg with trace edema. Right leg edema present but improved. -: No bowel movement for 4 days. Has had gas. No abdominal pain. No n/v. - Objective Resuscitation Status - Order Detail: 10/10/18 21:32 Resuscitation Status Routine Resuscitation Status: FULL: Full Resuscitation Vital Signs & Weight: Vital Signs (12 hours) Temp Pulse Resp BP BP Pulse Ox 10/18/18 07:33 106/72 10/18/18 07:31 98.2 F 68 18 106/72 98 Weight Weight 199 lb 15.348 oz I&O: 10/17/18 10/18/18 10/19/18 06:59 06:59 06:59 Intake Total 1250 800 Output Total 1240 620 Balance 10 180 Result Diagrams: 10/18/18 06:10 10/18/18 06:10 Phys Exam - Physical Examination Constitutional: NAD HEENT: PERRLA, moist MMs, oral pharynx no lesions Neck: no nodes, no JVD, supple, full ROM Respiratory: clear to auscultation bilateral Cardiovascular: RRR Gastrointestinal: soft, non-tender, positive bowel sounds Obese, slightly distended but at baseline Musculoskeletal: edema present Nearly resolved edema in left leg. Edema/swelling in right leg Neurological: non-focal, normal sensation Psychiatric: normal affect, A&O x 3 Skin: no rash Dx/Plan (1) Bilateral lower extremity edema Code(s): R60.0 - LOCALIZED EDEMA Status: Acute (2) Superficial thrombosis of leg Code(s): I82.819 - EMBOLISM AND THROMBOSIS OF SUPERFICIAL VN UNSP LOW EXTRM Status: Acute Qualifiers: Laterality: left Qualified Code(s): I82.812 - Embolism and thrombosis of superficial veins of left lower extremity (3) Abdominal mass Code(s): R19.00 - INTRA-ABD AND PELVIC SWELLING, MASS AND LUMP, UNSP SITE Status: Acute Qualifiers: Abdominal location: unspecified location Qualified Code(s): R19.00 - Intra- abdominal and pelvic swelling, mass and lump, unspecified site Comment: Concerns for possible malignancy. Oncology on board. General surgery consulted for possible tumor excision. (4) HTN (hypertension) Code(s): I10 - ESSENTIAL (PRIMARY) HYPERTENSION Status: Chronic Qualifiers: Hypertension type: essential hypertension Qualified Code(s): I10 - Essential (primary) hypertension (5) Weakness of both lower extremities Code(s): R29.898 - OTH SYMPTOMS AND SIGNS INVOLVING THE MUSCULOSKELETAL SYSTEM Status: Chronic Comment: Nothing acute found on MRIs- degenerative L spine changes. PT/OT and regulated program manager consulted. Will likely need placement in [facility]. - Plan cont current plan of care Per discussion with Dr. Jones, increasing Coumadin to 12 mg PO daily. -: Continue to monitor coags. -: Continue Senna BID. Add on Miralax BID for constipation. -: Continue physical therapy. -: For discharge once INR therapeutic. * .
[2018-10-18] MEDS ORDERED: Warfarin Sodium 2 MG TAB PO SCH (17:00)
[2018-10-18] MEDS: Polyethylene Glycol 3350 17 GM Packet PO SCH (19:50)
[2018-10-19] MEDS: HYDROcodone/Acetaminophen 5/325 mg Tablet PO PRN ×2 (00:05→19:47)
[2018-10-19] MEDS: Polyethylene Glycol 3350 17 GM Packet PO SCH ×2 (08:02→20:41)
[2018-10-19] MEDS: Diazepam 5 MG TAB PO SCH ×2 (08:02→20:39)
[2018-10-19] MEDS: Enoxaparin Sodium 100 MG/ML SYRINGE SC SCH ×2 (08:02→20:39)
[2018-10-19] MEDS: Lisinopril 10 MG TAB PO SCH (08:02)
[2018-10-19] MEDS: GLEEVEC 400 MG PO SCH (08:03)
[2018-10-19 08:57] LABS: #Basophils 0.1 thou/uL (0.0-0.2); #Eosinphils 0.1 thou/uL (0.0-0.7); #Lymphocytes 1.9 thou/uL (1.20-3.40); #Monocytes 0.5 thou/uL (0.11-0.59); #Neutrophils 3.4 thou/uL (1.40-6.50); %Basophils 1.5 % (0.0-1.0); %Eosinophils 1.5 % (0.0-10.0); %Lymphocytes 32.2 % (21.0-51.0); %Monocytes 8.8 % (0.0-10.0); Hemoglobin 11.4 g/dL (14.0-18.0); Mean Corpuscular HGB CONC 32.2 g/dL (32.0-36.0); Mean Corpuscular Hemoglobin 30.2 pg (27.0-31.0); Mean Corpuscular Volume 93.8 fL (78.0-98.0); Platelet Count 367 thou/uL (130-400); RBC Distribution Width 11.6 % (11.5-14.5); Red Blood Cell (RBC) Count 3.78 mill/uL (4.70-6.10)
[2018-10-19 09:00] LABS: INR-International Normal Ratio 1.7; Prothrombin Time 19.7 SEC (12.0-14.7)
[2018-10-19 09:19] LABS: ALT (SGPT) 101 U/L (8-55); AST (SGOT) 59 U/L (5-34); Albumin 3.7 g/dL (3.5-5.0); Alkaline Phosphatase 79 U/L (40-150); Anion Gap 10 mmol/L (10-20); BUN (Urea Nitrogen) 15 mg/dL (8.4-25.7); Bilirubin, Direct 0.1 mg/dL (0.1-0.3); Bilirubin, Total 0.3 mg/dL (0.2-1.2); Calc. Creatinine Clearance 182 mL/min (70-130); Calcium 9.3 mg/dL (7.8-10.44); Carbon Dioxide 26 mmol/L (22-29); Chloride 104 mmol/L (98-107); Estimated GFR-MDRD Greater than 90; Glucose 87 mg/dL (70-105); Potassium 4.1 mmol/L (3.5-5.1); Protein, Total 6.7 g/dL (6.0-8.3); Sodium 136 mmol/L (136-145)
--- NOTE | 2018-10-19 14:55 | PDOC.EVN ---
Event Note - Event Note Event Note: Discussed with Marti Montenegro. Reviewed record and evaluated Mr. Marsh. He is feeling well. He has been wheelchair bound since the fall. He gets by at home with help from his family. He has no significant edema of the LE's now. His LE doppler revealed thrombus in the superficial femoral vein. Recommendation of oncology is to fully treat given his immobility and potential prothrombotic state with the tumor. His INR has been increasing. 1.7 today. Will recheck this afternoon. If it is showing evidence of continued improvement and is close to therapeutic or therapeutic, will DC. If not, recheck in am. He is prepared to go home today if that works out.
[2018-10-19 15:30] LABS: INR-International Normal Ratio 1.7; Prothrombin Time 19.7 SEC (12.0-14.7)
[2018-10-19 15:31] LABS: PTT 48.2 SEC (22.9-36.1)
--- NOTE | 2018-10-19 16:43 | PDOC.PN ---
- Subjective Encounter Start Date: 10/19/18 Encounter Start Time: 11:00 Subjective: Patient remains comfortable. No complaints. No n/v. No abdo pain. No CP/SOB -: Remains immobile due to lower ext weakness/deconditioning. Exercises per PT -: Denies diarrhea, constipation, melena or BRPR. - Objective Resuscitation Status - Order Detail: 10/10/18 21:32 Resuscitation Status Routine Resuscitation Status: FULL: Full Resuscitation Vital Signs & Weight: Vital Signs (12 hours) Temp Pulse Resp BP Pulse Ox 10/19/18 08:00 98.0 F 81 18 111/73 98 Weight Weight 199 lb 15.348 oz I&O: 10/18/18 10/19/18 10/20/18 06:59 06:59 06:59 Intake Total 800 1020 Output Total 620 2125 Balance 180 -1105 Result Diagrams: 10/19/18 08:44 10/19/18 08:44 Phys Exam - Physical Examination Constitutional: NAD HEENT: PERRLA, moist MMs, oral pharynx no lesions Neck: no JVD, supple, full ROM Respiratory: clear to auscultation bilateral Cardiovascular: RRR Gastrointestinal: soft, non-tender, no distention, positive bowel sounds Obese significantly improved. mild edema in RLE Psychiatric: normal affect, A&O x 3 Skin: no rash Dx/Plan (1) Bilateral lower extremity edema Code(s): R60.0 - LOCALIZED EDEMA Status: Acute (2) Superficial thrombosis of leg Code(s): I82.819 - EMBOLISM AND THROMBOSIS OF SUPERFICIAL VN UNSP LOW EXTRM Status: Acute Qualifiers: Laterality: left Qualified Code(s): I82.812 - Embolism and thrombosis of superficial veins of left lower extremity (3) Abdominal mass Code(s): R19.00 - INTRA-ABD AND PELVIC SWELLING, MASS AND LUMP, UNSP SITE Status: Acute Qualifiers: Abdominal location: unspecified location Qualified Code(s): R19.00 - Intra- abdominal and pelvic swelling, mass and lump, unspecified site Comment: Concerns for possible malignancy. Oncology on board. General surgery consulted for possible tumor excision. (4) HTN (hypertension) Code(s): I10 - ESSENTIAL (PRIMARY) HYPERTENSION Status: Chronic Qualifiers: Hypertension type: essential hypertension Qualified Code(s): I10 - Essential (primary) hypertension (5) Weakness of both lower extremities Code(s): R29.898 - OTH SYMPTOMS AND SIGNS INVOLVING THE MUSCULOSKELETAL SYSTEM Status: Chronic Comment: Nothing acute found on MRIs- degenerative L spine changes. PT/OT and social media content manager consulted. Will likely need placement in [facility]. - Plan Coumadin at 12 mg, with slight increase in INR to 1.7 -: Per discussion with Dr. Jones, recheck this afternoon. -: If 1.8 or higher, discharge home with plans to have him see Dr. Hays -: tomorrow as scheduled and for further management. -: Otherwise continue at current dose and recheck tomorrow. * .
[2018-10-19] MEDS ORDERED: Warfarin Sodium 3 MG TAB PO SCH (17:00)
[2018-10-19] MEDS ORDERED: Warfarin Sodium 2 MG TAB PO SCH (19:00)
[2018-10-19] MEDS ORDERED: Warfarin Sodium 10 MG TAB PO SCH (19:00)
[2018-10-20 07:08] LABS: Hemoglobin 10.5 g/dL (14.0-18.0); Platelet Count 375 thou/uL (130-400)
[2018-10-20 07:09] LABS: #Basophils 0.1 thou/uL (0.0-0.2); #Eosinphils 0.1 thou/uL (0.0-0.7); #Lymphocytes 2.3 thou/uL (1.20-3.40); #Monocytes 0.6 thou/uL (0.11-0.59); #Neutrophils 3.1 thou/uL (1.40-6.50); %Eosinophils 1.3 % (0.0-10.0); %Monocytes 9.7 % (0.0-10.0); Hemoglobin 10.4 g/dL (14.0-18.0); Mean Corpuscular HGB CONC 32.3 g/dL (32.0-36.0); Mean Corpuscular Hemoglobin 30.5 pg (27.0-31.0); Mean Corpuscular Volume 94.3 fL (78.0-98.0); Mean Platelet Volume 7.2 fL (7.4-10.4); Platelet Count 366 thou/uL (130-400); RBC Distribution Width 11.5 % (11.5-14.5); Red Blood Cell (RBC) Count 3.41 mill/uL (4.70-6.10); White Blood Cell (WBC) Count 6.1 thou/uL (4.8-10.8)
[2018-10-20 07:12] LABS: INR-International Normal Ratio 1.8
[2018-10-20 07:34] LABS: Anion Gap 10 mmol/L (10-20); BUN (Urea Nitrogen) 18 mg/dL (8.4-25.7); Calc. Creatinine Clearance 158 mL/min (70-130); Calcium 9.2 mg/dL (7.8-10.44); Carbon Dioxide 27 mmol/L (22-29); Chloride 106 mmol/L (98-107); Estimated GFR-MDRD Greater than 90; Glucose 92 mg/dL (70-105); Potassium 4.3 mmol/L (3.5-5.1); Sodium 139 mmol/L (136-145)
[2018-10-20] MEDS: Polyethylene Glycol 3350 17 GM Packet PO SCH (08:37)
[2018-10-20] MEDS: Lisinopril 10 MG TAB PO SCH (08:37)
[2018-10-20] MEDS: Diazepam 5 MG TAB PO SCH (08:37)
[2018-10-20] MEDS: Enoxaparin Sodium 100 MG/ML SYRINGE SC SCH (08:38)
[2018-10-20] MEDS: GLEEVEC 400 MG PO SCH (08:39)
[2018-10-20] MEDS: HYDROcodone/Acetaminophen 5/325 mg Tablet PO PRN ×2 (09:15→16:09)
[2018-10-20 11:08] VITALS: BP 105/74; TEMP 98.2
[2018-10-20] MEDS ORDERED: Warfarin Sodium 2 MG TAB PO SCH (17:00)
[2018-10-20] MEDS ORDERED: Warfarin Sodium 10 MG TAB PO SCH (17:00)
== END 2018-10-20 16:26 | disposition home or self-care (01) ==
LOC: ERS 15:28 → T4-A 20:09
PROVIDERS: ADMIT Internal Medicine; ATTEND Internal Medicine
DX: I82.4Y2 Acute embolism and thrombosis of unspecified deep veins of left proximal lower extremity (principal); I10 Essential (primary) hypertension; C49.A0 Gastrointestinal stromal tumor, unspecified site; D64.9 Anemia, unspecified; Z87.891 Personal history of nicotine dependence; Z79.899 Other long term (current) drug therapy; Z79.01 Long term (current) use of anticoagulants
CPT/HCPCS: 36415; 71045; 74177; 80048; 80053; 82248; 82565; 83880; 85014; 85018; 85025; 85049; 85610; 85730; 90471; 90670; 93005; 93970; 96372; G0009; G0378; G8978-GP-CM; G8979-GP-CL; J1650

== ENCOUNTER 2018-12-03 10:30 | Inpatient (IN) | payer SELFPAY ==
[2018-12-06] MEDS ORDERED: Acetaminophen 1,000 MG in Premix Bag 1 BAG IVPB PRN (12:49)
[2018-12-06] MEDS ORDERED: Ondansetron ODT 4 MG TAB PO PRN (12:50)
[2018-12-06] MEDS ORDERED: Ondansetron PF 4 MG/2 ML Vial SLOW IVP PRN (12:50)
[2018-12-06 12:54] VITALS: BMI 26.8
[2018-12-06] MEDS ORDERED: Polyethylene Glycol 3350 17 GM Packet PO SCH (13:00)
[2018-12-06] MEDS ORDERED: metroNIDAZOLE 500 MG TAB PO SCH ×2 (13:00→19:00)
[2018-12-06 13:32] LABS: #Eosinphils 0.1 thou/uL (0.0-0.7); #Lymphocytes 1.3 thou/uL (1.20-3.40); #Monocytes 0.5 thou/uL (0.11-0.59); #Neutrophils 4.6 thou/uL (1.40-6.50); %Basophils 0.6 % (0.0-1.0); %Eosinophils 1.2 % (0.0-10.0); %Lymphocytes 19.2 % (21.0-51.0); %Monocytes 8.3 % (0.0-10.0); %Neutrophils 70.5 % (42.0-75.0); Mean Corpuscular HGB CONC 31.9 g/dL (32.0-36.0); Mean Corpuscular Hemoglobin 30.5 pg (27.0-31.0); Mean Corpuscular Volume 95.4 fL (78.0-98.0); Mean Platelet Volume 7.6 fL (7.4-10.4); Platelet Count 353 thou/uL (130-400); RBC Distribution Width 11.2 % (11.5-14.5); Red Blood Cell (RBC) Count 3.61 mill/uL (4.70-6.10); White Blood Cell (WBC) Count 6.5 thou/uL (4.8-10.8)
[2018-12-06 13:36] LABS: INR-International Normal Ratio 2.5; Prothrombin Time 27.2 SEC (12.0-14.7)
[2018-12-06 13:57] LABS: Anion Gap 11 mmol/L (10-20); BUN (Urea Nitrogen) 17 mg/dL (8.4-25.7); Calc. Creatinine Clearance 219 mL/min (70-130); Calcium 9.9 mg/dL (7.8-10.44); Carbon Dioxide 29 mmol/L (22-29); Chloride 104 mmol/L (98-107); Estimated GFR-MDRD Greater than 90; Glucose 90 mg/dL (70-105); Potassium 4.2 mmol/L (3.5-5.1); Sodium 140 mmol/L (136-145)
[2018-12-06] MEDS: Sodium Chloride 0.9% 1,000 ML IV SCH (13:58)
--- NOTE | 2018-12-06 15:52 | RAD ---
CHEST 1 VIEW: HISTORY: Exploratory LAP with tumor, Preoperative evaluation. COMPARISON: 10/10/2018. FINDINGS: Heart size is within normal limits. The lungs are clear. No acute process. IMPRESSION: No acute intrathoracic disease. Atherosclerosis of the aorta with ectasia. POS: [facility]
[2018-12-06] MEDS: Neomycin 500 mg Tablet PO SCH ×4 (16:58→20:30)
[2018-12-06] MEDS ORDERED: Enoxaparin Sodium 100 MG/ML SYRINGE SC SCH (21:00)
[2018-12-07] MEDS: Sodium Chloride 0.9% 1,000 ML IV SCH ×3 (03:27→19:43)
[2018-12-07] MEDS ORDERED: Fentanyl 100 MCG/2 ML VIAL ONE ×2 (06:57→07:25)
[2018-12-07] MEDS ORDERED: Dexamethasone 4 mg/ml Vial ONE (06:57)
[2018-12-07] MEDS ORDERED: Midazolam HCl 2 mg/2 ml Vial ONE (06:57)
--- NOTE | 2018-12-07 07:47 | EKG ---
Test Reason : PREOP Blood Pressure : / mmHG Vent. Rate : 083 BPM Atrial Rate : 083 BPM P-R Int : 138 ms QRS Dur : 094 ms QT Int : 372 ms P-R-T Axes : 055 020 -07 degrees QTc Int : 437 ms Normal sinus rhythm with sinus arrhythmia Normal ECG When compared with ECG of 10-OCT-2018 15:46, ST no longer depressed in Anterior leads Nonspecific T wave abnormality no longer evident in Anterior leads Confirmed by MARICRUZ CARLOS ([id number]) on 12/07/2018 7:46:23 AM Referred By: PIPPA Confirmed By:MARICRUZ CARLOS
[2018-12-07] MEDS ORDERED: Albumin 5% 500 ML ONE (08:05)
[2018-12-07] MEDS ORDERED: GLEEVEC 400 MG PO SCH (09:00)
[2018-12-07] MEDS ORDERED: SUGAMMADEX SODIUM 200 MG/2 ML VIAL ONE (09:30)
--- NOTE | 2018-12-07 10:04 | OP ---
DATE OF PROCEDURE: 12/07/2018 PREOPERATIVE DIAGNOSIS: Abdominal sarcoma. POSTOPERATIVE DIAGNOSIS: Abdominal sarcoma. PROCEDURES PERFORMED: Exploratory laparotomy, abdominal sarcoma resection with partial gastrectomy (wedge and partial omentectomy). ANESTHESIA: General. ESTIMATED BLOOD LOSS: 50 mL. COMPLICATIONS: None. 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 INDICATIONS FOR PROCEDURE: The patient is a 58-year-old male, who was found to have large locally invasive tumor back in 2018. This was deemed unresectable at that time. He has been on Gleevec for the last 6 months with substantial shrink in the tumor. He now presents for definitive resection. Tumor did not appear to involve any major vascular structures. DESCRIPTION OF PROCEDURE: The patient had tap blocks preop. He was taken to the operating room and laid supine on operating room table. After general anesthetic was obtained, a Spivey was placed. The abdomen was shaved, prepped, and draped in a sterile fashion. Midline incision was made. Cautery was dissected down into the abdominal cavity. Bookwalter retractor was placed. A small serosal injury to the small bowel was made upon entrance in the abdomen. This was not full-thickness. The serosa was oversewn using silk pop-off sutures. A Markell maneuver was performed. The right colon was mobilized revealing no obvious malignancy. The lesser sac was entered showing the large sarcoma appeared to be fixed to the omentum in certain places, so an omentectomy was performed taking the omentum right off the transverse colon, leaving part of it on the tumor. Additional 2 pieces of omentum were taken in the areas that were abutting the tumor and the area that was abutting the tumor was marked with a silk suture. The tumor appeared to be coming from a stalk from the posterior wall of the stomach. Wedge resection of a small amount of the stomach in this area was performed leaving it on the tumor. The specimen was then sent to final pathology. Staple line was not bleeding. OG tube had been brought down into the stomach during the procedure, but it was not involved in the staple line. There was no other obvious malignancy in the abdomen. There was no retroperitoneal lymphadenopathy. There was no liver metastasis. No other tumor implants in the peritoneum or in the omentum. All instrument counts, needle counts, and lap counts were correct. Midline fascia was closed using #1 PDS in the top and in the bottom, and tied in the middle. Subcutaneous tissues were irrigated. The skin was closed using 3-0 Vicryl, 4-0 Monocryl, and Dermabond. The patient was then returned to Recovery in stable condition. All instrument counts, needle counts, and lap counts were correct. Job ID: [id number]
--- NOTE | 2018-12-07 10:20 | HP ---
CHIEF COMPLAINT: Abdominal GIST tumor. HISTORY OF PRESENT ILLNESS: This is a 58-year-old male who presented in the fall of 2018 with large abdominal mass. This was biopsy-proven sarcoma GIST tumor. He has been seen by Dr. Hays. He has been on Gleevec treatment and has had substantial decrease in the size of this tumor. Most recent scan in September showed a tumor what that was 40% the size of previous. The patient's large abdominal mass had resolved. He presents now for definitive excision. The patient did have PE in the late 2017 and early 2018, is on Coumadin now. 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 He did have an appointment to see an outpatient neurologist, but they were not able to make that appointment. They were traveling in from [place] for visits. PAST MEDICAL HISTORY: Includes abdominal GIST tumor and hypertension. PAST SURGICAL HISTORY: He denies. MEDICATIONS: Medicines taken daily; Gleevec, lisinopril, hydrochlorothiazide, naproxen, [place], warfarin. ALLERGIES: NONE. SOCIAL HISTORY: No smoking or alcohol. REVIEW OF SYSTEMS: Ten-system review of systems, otherwise negative, unless described above. PHYSICAL EXAMINATION: HEENT: Sclerae anicteric. Oropharynx clear. NECK: No lymphadenopathy. CHEST: Clear. HEART: Regular rate and rhythm. ABDOMEN: Soft, nontender, nondistended. EXTREMITIES: No ischemia or edema to extremities. ASSESSMENT: Abdominal gastrointestinal stromal tumor. PLAN: Definitive resection tomorrow. Risks, benefits, and alternatives were discussed, he gives consent. Job ID: [id number]
[2018-12-07] MEDS ORDERED: hydrALAZINE 20 MG/ML VIAL SLOW IVP PRN (10:47)
[2018-12-07] MEDS ORDERED: Promethazine HCl 25 MG/ML VIAL IM PRN (10:47)
[2018-12-07] MEDS ORDERED: Pantoprazole 40 MG VIAL IVP SCH (10:47)
[2018-12-07] MEDS ORDERED: Fentanyl 100 MCG/2 ML VIAL SLOW IVP PRN (10:47)
[2018-12-07] MEDS ORDERED: Ondansetron PF 4 MG/2 ML Vial IVP PRN (10:47)
[2018-12-07] MEDS ORDERED: Sodium Chloride 0.9% (PF) 10 ML VIAL FS PRN (11:17)
[2018-12-07] MEDS: Fentanyl 100 MCG/2 ML VIAL SLOW IVP PRN ×3 (11:22→18:13)
[2018-12-07] MEDS ORDERED: cefOXitin 2 GM in Sodium Chloride 0.9% 100 ML IVPB SCH (12:00)
[2018-12-07] MEDS: cefOXitin Sodium/Dextrose,Iso 2 GM in Premix Bag 1 BAG IVPB SCH (13:39)
[2018-12-07] MEDS ORDERED: Bupivacaine HCl 0.5%/Epinephrine 1:200,000/PF 30 ml Vial ONE (13:39)
[2018-12-07] MEDS: Acetaminophen 1,000 MG in Premix Bag 1 BAG IVPB SCH ×3 (14:05→23:31)
[2018-12-07] MEDS: Ketorolac Tromethamine 30 MG/ML VIAL IVP PRN ×2 (14:06→19:44)
[2018-12-07] MEDS ORDERED: PROPOFOL 200 MG/20 ML VIAL ONE (15:06)
[2018-12-07] MEDS ORDERED: Rocuronium Bromide 10 MG/ML (10ML VIAL) ONE (15:06)
[2018-12-07] MEDS ORDERED: Dexamethasone 20 MG/5 ML VIAL ONE (15:06)
[2018-12-07] MEDS ORDERED: Ondansetron PF 4 MG/2 ML Vial ONE (15:06)
[2018-12-07] MEDS ORDERED: Ketorolac Tromethamine 30 MG/ML VIAL ONE (15:06)
[2018-12-07] MEDS ORDERED: Esmolol 100 MG/10 ML VIAL ONE (15:06)
[2018-12-07] MEDS ORDERED: Glycopyrrolate 0.2 MG/ML 5 ML SYRINGE ONE (15:06)
[2018-12-07] MEDS: Enoxaparin Sodium 40 MG/0.4 ML SYRINGE SC SCH (21:01)
[2018-12-07] MEDS: Pantoprazole 40 MG VIAL IVP SCH (21:02)
[2018-12-08] MEDS: Ketorolac Tromethamine 30 MG/ML VIAL IVP PRN ×2 (01:33→19:37)
[2018-12-08] MEDS: cefOXitin Sodium/Dextrose,Iso 2 GM in Premix Bag 1 BAG IVPB SCH (01:35)
[2018-12-08] MEDS: Fentanyl 100 MCG/2 ML VIAL SLOW IVP PRN ×6 (04:35→17:49)
[2018-12-08] MEDS: Acetaminophen 1,000 MG in Premix Bag 1 BAG IVPB SCH (05:48)
[2018-12-08] MEDS: Sodium Chloride 0.9% 1,000 ML IV SCH ×2 (05:51→15:14)
[2018-12-08] MEDS: Lisinopril/Hydrochlorothiazide 20/25 mg Tablet PO SCH (08:31)
[2018-12-08 09:32] LABS: #Lymphocytes 1.8 thou/uL (1.20-3.40); #Monocytes 1.1 thou/uL (0.11-0.59); #Neutrophils 8.8 thou/uL (1.40-6.50); %Basophils 0.3 % (0.0-1.0); %Eosinophils 0.1 % (0.0-10.0); %Lymphocytes 15.2 % (21.0-51.0); %Monocytes 9.4 % (0.0-10.0); %Neutrophils 75.1 % (42.0-75.0); Hemoglobin 9.1 g/dL (14.0-18.0); Mean Corpuscular HGB CONC 31.6 g/dL (32.0-36.0); Mean Corpuscular Hemoglobin 29.9 pg (27.0-31.0); Mean Corpuscular Volume 94.7 fL (78.0-98.0); Mean Platelet Volume 7.7 fL (7.4-10.4); Platelet Count 315 thou/uL (130-400); RBC Distribution Width 11.2 % (11.5-14.5); Red Blood Cell (RBC) Count 3.05 mill/uL (4.70-6.10); White Blood Cell (WBC) Count 11.8 thou/uL (4.8-10.8)
[2018-12-08 09:33] LABS: INR-International Normal Ratio 2.1; Prothrombin Time 23.2 SEC (12.0-14.7)
[2018-12-08 09:41] LABS: Anion Gap 12 mmol/L (10-20); BUN (Urea Nitrogen) 13 mg/dL (8.4-25.7); Calc. Creatinine Clearance 192 mL/min (70-130); Calcium 8.9 mg/dL (7.8-10.44); Carbon Dioxide 21 mmol/L (22-29); Chloride 107 mmol/L (98-107); Estimated GFR-MDRD Greater than 90; Glucose 83 mg/dL (70-105); Potassium 3.6 mmol/L (3.5-5.1); Sodium 136 mmol/L (136-145)
--- NOTE | 2018-12-08 13:58 | PDOC.GSPN ---
Surgery Progress Note: Subj - Subjective Patient reports: tolerating liquids well Narrative: Pain controlled Surgery Progress Note: Obj - Vital signs Vital signs: Vital Signs - Most Recent Temp Pulse Resp BP Pulse Ox 98.5 F 98 18 114/74 94 L 12/08/18 08:17 12/08/18 08:31 12/08/18 08:17 12/08/18 08:17 12/08/18 08:17 - Physical Exam General: no distress Cardiovascular: regular rate and rhythm Respiratory: clear to auscultation Abdomen: soft, nondistended, appropriately tender Wound: healing well Surgery Progress Note: Results - Labs Result Diagrams: 12/08/18 08:32 12/08/18 08:32 Lab results: Laboratory Results - last 24 hr 12/08/18 12/08/18 12/08/18 08:32 08:32 08:32 WBC 11.8 H RBC 3.05 L Hgb 9.1 L Hct 28.9 L MCV 94.7 MCH 29.9 MCHC 31.6 L RDW 11.2 L Plt Count 315 MPV 7.7 Neutrophils % 75.1 H Lymphocytes % 15.2 L Monocytes % 9.4 Eosinophils % 0.1 Basophils % 0.3 Neutrophils # 8.8 H Lymphocytes # 1.8 Monocytes # 1.1 H Eosinophils # 0.0 Basophils # 0.0 PT 23.2 H INR 2.1 Sodium 136 Potassium 3.6 Chloride 107 Carbon Dioxide 21 L Anion Gap 12 BUN 13 Creatinine 0.57 L Estimated GFR (MDRD) Greater than 90 Glucose 83 Calcium 8.9 Surgery Progress Note: A/P - Problem (1) Primary intra-abdominal sarcoma Current Visit: Yes Code(s): C49.4 - MALIGNANT NEOPLASM OF CONNECTIVE AND SOFT TISSUE OF ABDOMEN Status: Acute Assessment and Plan: POD 1 resection GIST -full liquids -oob to chair
[2018-12-08] MEDS: Warfarin Sodium 10 MG TAB PO SCH (16:51)
[2018-12-08] MEDS: Pantoprazole 40 MG VIAL IVP SCH (20:51)
[2018-12-08] MEDS: Enoxaparin Sodium 40 MG/0.4 ML SYRINGE SC SCH (20:51)
[2018-12-09] MEDS: Fentanyl 100 MCG/2 ML VIAL SLOW IVP PRN ×7 (00:23→22:58)
[2018-12-09] MEDS: Ketorolac Tromethamine 30 MG/ML VIAL IVP PRN ×2 (03:48→20:10)
[2018-12-09 06:36] LABS: #Lymphocytes 1.8 thou/uL (1.20-3.40); #Monocytes 0.9 thou/uL (0.11-0.59); #Neutrophils 6.8 thou/uL (1.40-6.50); %Basophils 0.3 % (0.0-1.0); %Eosinophils 0.2 % (0.0-10.0); %Lymphocytes 18.6 % (21.0-51.0); %Monocytes 9.7 % (0.0-10.0); %Neutrophils 71.2 % (42.0-75.0); Hemoglobin 8.7 g/dL (14.0-18.0); Mean Corpuscular HGB CONC 31.7 g/dL (32.0-36.0); Mean Corpuscular Hemoglobin 30.5 pg (27.0-31.0); Mean Corpuscular Volume 96.1 fL (78.0-98.0); Mean Platelet Volume 7.3 fL (7.4-10.4); Platelet Count 284 thou/uL (130-400); RBC Distribution Width 11.1 % (11.5-14.5); Red Blood Cell (RBC) Count 2.85 mill/uL (4.70-6.10); White Blood Cell (WBC) Count 9.5 thou/uL (4.8-10.8)
[2018-12-09 06:40] LABS: INR-International Normal Ratio 2.2; Prothrombin Time 24.3 SEC (12.0-14.7)
[2018-12-09] MEDS: Lisinopril/Hydrochlorothiazide 20/25 mg Tablet PO SCH (09:48)
[2018-12-09] MEDS: Imatinib Mesylate [Gleevec] 400 MG PO SCH (09:49)
--- NOTE | 2018-12-09 11:43 | PDOC.GSPN ---
Surgery Progress Note: Subj - Subjective Patient reports: tolerating liquids well Narrative: pain controlled Surgery Progress Note: Obj - Vital signs Vital signs: Vital Signs - Most Recent Temp Pulse Resp BP Pulse Ox 98.5 F 97 18 135/87 93 L 12/09/18 07:25 12/09/18 09:48 12/09/18 07:25 12/09/18 09:48 12/09/18 08:00 - Physical Exam General: no distress Cardiovascular: regular rate and rhythm Respiratory: clear to auscultation Abdomen: soft, nondistended, positive bowel sounds Wound: healing well Surgery Progress Note: Results - Labs Result Diagrams: 12/09/18 06:10 12/08/18 08:32 Lab results: Laboratory Results - last 24 hr 12/09/18 12/09/18 06:10 06:10 WBC 9.5 RBC 2.85 L Hgb 8.7 L Hct 27.4 L MCV 96.1 MCH 30.5 MCHC 31.7 L RDW 11.1 L Plt Count 284 MPV 7.3 L Neutrophils % 71.2 Lymphocytes % 18.6 L Monocytes % 9.7 Eosinophils % 0.2 Basophils % 0.3 Neutrophils # 6.8 H Lymphocytes # 1.8 Monocytes # 0.9 H Eosinophils # 0.0 Basophils # 0.0 PT 24.3 H INR 2.2 Surgery Progress Note: A/P - Problem (1) Primary intra-abdominal sarcoma Current Visit: Yes Code(s): C49.4 - MALIGNANT NEOPLASM OF CONNECTIVE AND SOFT TISSUE OF ABDOMEN Status: Acute - Plan Plan: Mobilize to chair today -GI soft diet
[2018-12-09] MEDS: Warfarin Sodium 10 MG TAB PO SCH (17:55)
[2018-12-09] MEDS: Pantoprazole 40 MG VIAL IVP SCH (20:10)
[2018-12-10] MEDS: Fentanyl 100 MCG/2 ML VIAL SLOW IVP PRN ×4 (05:01→23:25)
[2018-12-10 06:36] LABS: #Basophils 0.1 thou/uL (0.0-0.2); #Eosinphils 0.1 thou/uL (0.0-0.7); #Lymphocytes 2.4 thou/uL (1.20-3.40); #Monocytes 0.9 thou/uL (0.11-0.59); #Neutrophils 5.7 thou/uL (1.40-6.50); %Basophils 0.8 % (0.0-1.0); %Eosinophils 1.2 % (0.0-10.0); %Lymphocytes 25.7 % (21.0-51.0); %Monocytes 10.1 % (0.0-10.0); %Neutrophils 62.2 % (42.0-75.0); Hemoglobin 9.1 g/dL (14.0-18.0); Mean Corpuscular HGB CONC 31.5 g/dL (32.0-36.0); Mean Corpuscular Hemoglobin 30.1 pg (27.0-31.0); Mean Corpuscular Volume 95.6 fL (78.0-98.0); Mean Platelet Volume 7.4 fL (7.4-10.4); Platelet Count 315 thou/uL (130-400); RBC Distribution Width 11.2 % (11.5-14.5); Red Blood Cell (RBC) Count 3.02 mill/uL (4.70-6.10); White Blood Cell (WBC) Count 9.2 thou/uL (4.8-10.8)
[2018-12-10] MEDS: Ketorolac Tromethamine 30 MG/ML VIAL IVP PRN (08:17)
[2018-12-10] MEDS: Lisinopril/Hydrochlorothiazide 20/25 mg Tablet PO SCH (10:02)
[2018-12-10] MEDS: Imatinib Mesylate [Gleevec] 400 MG PO SCH (10:03)
--- NOTE | 2018-12-10 14:42 | PRG ---
DATE OF SERVICE: 12/10/2018 SUBJECTIVE: Mr. Marsh is doing quite well. He tolerated GI soft diet. He has been out of bed to chair. He has not walked in 6 months, so he is unable to ambulate with PT help. OBJECTIVE: VITAL SIGNS: He is afebrile. Vital signs are stable. ABDOMEN: His abdomen is soft and his midline wound is healing well without evidence of infection. Pathology still pending on his omental sarcoma resection. 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 PLAN: I still think, he needs a few more days in the hospital since he is so limited in terms of activity. I have sent prescription for hydrocodone over to his pharmacy in [place] in case he goes home this weekend. He is back on his Coumadin 10 mg a day. We will check INR in the morning. His hemoglobin is stable. Job ID: [id number]
[2018-12-10] MEDS: Warfarin Sodium 10 MG TAB PO SCH (17:45)
[2018-12-10] MEDS: Sodium Chloride 0.9% 1,000 ML IV SCH (20:36)
[2018-12-10] MEDS: Pantoprazole 40 MG VIAL IVP SCH (20:37)
[2018-12-11] MEDS: Fentanyl 100 MCG/2 ML VIAL SLOW IVP PRN ×2 (04:22→10:00)
[2018-12-11 05:46] LABS: INR-International Normal Ratio 2.4
[2018-12-11 08:22] VITALS: TEMP 98.2
[2018-12-11] MEDS: Lisinopril/Hydrochlorothiazide 20/25 mg Tablet PO SCH (10:02)
[2018-12-11] MEDS: Imatinib Mesylate [Gleevec] 400 MG PO SCH (10:04)
[2018-12-11] MEDS ORDERED: traMADol HCl 50 MG TAB PO PRN ×2 (15:28→15:30)
[2018-12-11] MEDS ORDERED: Magnesium Citrate 300 ML BOT PO PRN (15:28)
[2018-12-11] MEDS ORDERED: Acetaminophen 500 MG TAB PO PRN (15:28)
[2018-12-11] MEDS: traMADol HCl 50 MG TAB PO PRN ×2 (16:05→22:04)
--- NOTE | 2018-12-11 16:05 | PRG ---
DATE OF SERVICE: SUBJECTIVE: Yony Marsh is doing well today. OBJECTIVE: VITAL SIGNS: He is afebrile, temperature 98.2 degrees, heart rate 87, and blood pressure 129/80. GENERAL: He is passing flatus. LUNGS: Clear to auscultation. CARDIAC: Regular rate and rhythm. No murmur or gallop. ABDOMEN: Soft and nontender. No masses. EXTREMITIES: Unremarkable. LABORATORY DATA: There are no laboratories today. ASSESSMENT AND PLAN: Doing well post gastrointestinal stromal tumor resection. Would advance diet and order stool softeners. The patient could be discharged home tomorrow. His PT/INR today is 26 and 2.4. He will continue his Coumadin. Job ID: [id number]
[2018-12-11] MEDS: Warfarin Sodium 10 MG TAB PO SCH (16:06)
[2018-12-11] MEDS ORDERED: Warfarin Sodium 10 MG TAB PO SCH (17:00)
[2018-12-11] MEDS: Polyethylene Glycol 3350 17 GM Packet PO SCH (20:51)
[2018-12-11] MEDS: Citrucel 500 MG TAB PO SCH (20:51)
[2018-12-12 06:19] LABS: INR-International Normal Ratio 2.3; Prothrombin Time 25.4 SEC (12.0-14.7)
[2018-12-12 07:55] VITALS: BP 102/70
[2018-12-12] MEDS ORDERED: Naproxen 500 MG TAB PO SCH (09:00)
[2018-12-12] MEDS: Lisinopril/Hydrochlorothiazide 20/25 mg Tablet PO SCH (09:57)
[2018-12-12] MEDS: Citrucel 500 MG TAB PO SCH (09:57)
[2018-12-12] MEDS: Imatinib Mesylate [Gleevec] 400 MG PO SCH (09:59)
[2018-12-12] MEDS: Polyethylene Glycol 3350 17 GM Packet PO SCH (10:01)
--- NOTE | 2018-12-12 11:27 | PRG ---
DATE OF SERVICE: 12/12/2018 SUBJECTIVE: He is doing well today. He is tolerating a regular diet. He is passing flatus. He does not have any complaints. His pain is well controlled with Tylenol, Ultram, and Motrin. OBJECTIVE: LUNGS: The patient's lungs clear to auscultation. CARDIAC: Regular rate and rhythm. No murmur or gallop. ABDOMEN: Soft. Bowel sounds present. Nondistended and nontympanitic. EXTREMITIES: Unremarkable. ASSESSMENT AND PLAN: Doing well. I have discussed with the patient and family and they desire to go home today. I have told him they could stay another day if they desire, but they want to go home. Arrangements will be made for discharge. He will be discharged home with followup in 2 to 3 weeks. Job ID: [id number]
== END 2018-12-12 13:08 | disposition home or self-care (01) | DRG 983 ==
LOC: T4-B 12-06 12:26
PROVIDERS: ADMIT Surgery; ATTEND Surgery
PROC: 0DB60ZZ Excision of Stomach, Open Approach (ICD-10-PCS; principal; 2018-12-06)
PROC: 0DBU0ZZ Excision of Omentum, Open Approach (ICD-10-PCS; 2018-12-06)
DX: C49.A0 Gastrointestinal stromal tumor, unspecified site (principal)
CPT/HCPCS: 36415; 71045; 80048; 85025; 85610; 88307; 88309; 88341; 88342; 93005; 93010; 94760; C9113; J0131; J0670; J0694; J1100; J1650; J1885; J2250; J2405; J2704; J3010; J7050; P9045

== ENCOUNTER 2018-12-25 23:40 | Inpatient (IN) | payer SELFPAY ==
[2018-12-26 00:34] LABS: #Eosinphils 0.1 thou/uL (0.0-0.7); #Lymphocytes 1.3 thou/uL (1.20-3.40); #Monocytes 0.3 thou/uL (0.11-0.59); #Neutrophils 4.3 thou/uL (1.40-6.50); %Basophils 0.7 % (0.0-1.0); %Eosinophils 0.8 % (0.0-10.0); %Lymphocytes 21.9 % (21.0-51.0); %Monocytes 4.7 % (0.0-10.0); %Neutrophils 71.8 % (42.0-75.0); Hemoglobin 10.1 g/dL (14.0-18.0); Mean Corpuscular HGB CONC 30.3 g/dL (32.0-36.0); Mean Corpuscular Hemoglobin 29.3 pg (27.0-31.0); Mean Corpuscular Volume 96.7 fL (78.0-98.0); Platelet Count 398 thou/uL (130-400); RBC Distribution Width 11.6 % (11.5-14.5); Red Blood Cell (RBC) Count 3.44 mill/uL (4.70-6.10)
[2018-12-26 00:41] LABS: INR-International Normal Ratio 1.9; PTT 51.8 SEC (22.9-36.1); Prothrombin Time 21.8 SEC (12.0-14.7)
[2018-12-26 00:42] LABS: D-Dimer Test 1.72 *mcg/mL (0.27-0.43)
[2018-12-26 00:59] LABS: Base Excess-Venous 3.5 mmol/L (-2.0 to 3.0); Bicarbonate (HCO3v) 30.6 mmol/L (22.0-28.0); CO2 Tension (PvCO2) 57.4 mmHg (40.0-50.0); Calcium, Ionized 1.14 mmol/L (See Comments:); Chloride 105 mmol/L (98-107); Hemoglobin - Calc 11.2 g/dL (14.0-18.0); O2 Tension (PvO2) 27.3 mmHg (35.0-45.0); Potassium 3.6 mmol/L (3.5-5.1); Sodium 143 mmol/L (138-145); T. Carbon Dioxide 32.3 mmol/L (22.0-28.0); pH (Venous) 7.334 (7.320-7.430); vO2 Saturation-calc 45.3 % (60.0-85.0)
[2018-12-26 00:59] LABS: ALT (SGPT) 17 U/L (8-55); AST (SGOT) 14 U/L (5-34); Albumin 4.1 g/dL (3.5-5.0); Alkaline Phosphatase 86 U/L (40-150); Anion Gap 12 mmol/L (10-20); BUN (Urea Nitrogen) 22 mg/dL (8.4-25.7); Bilirubin, Total 0.4 mg/dL (0.2-1.2); Calc. Creatinine Clearance 0 mL/min (70-130); Calcium 9.7 mg/dL (7.8-10.44); Carbon Dioxide 30 mmol/L (22-29); Chloride 104 mmol/L (98-107); Estimated GFR-MDRD Greater than 90; Globulin 3.3 g/dL (2.4-3.5); Glucose 117 mg/dL (70-105); Potassium 3.6 mmol/L (3.5-5.1); Protein, Total 7.4 g/dL (6.0-8.3); Sodium 142 mmol/L (136-145)
[2018-12-26 01:20] LABS: CKMB 5.6 ng/mL (0-6.6)
[2018-12-26] MEDS ORDERED: Aspirin Chewable 81 MG TAB ONE (03:16)
[2018-12-26] MEDS ORDERED: Cefepime 2 GM in Sodium Chloride 0.9% 100 ML IVPB SCH (04:00)
[2018-12-26 05:39] LABS: Troponin I 0.158 ng/mL (< 0.028)
[2018-12-26 08:22] LABS: Troponin I 0.106 ng/mL (< 0.028)
--- NOTE | 2018-12-26 08:43 | RAD ---
SINGLE VIEW OF THE CHEST: COMPARISON: 12/06/2018. HISTORY: Dyspnea. FINDINGS: Single view of the chest shows a normal sized cardiomediastinal silhouette. There is no evidence of c onsolidation, mass, or pleural effusion. The bones are unremarkable. IMPRESSION: No evidence of acute cardiopulmonary disease. POS: [facility]
--- NOTE | 2018-12-26 11:07 | CT ---
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 Has had increased ble swelling and SOB. On thinners for lle dvt dx in sep TECHNIQUE: Axial computed tomographic angiography images of the chest with intravenous contrast using CT angiogr aphy protocol. MIP reconstructed images were created and reviewed. COMPARISON: No relevant prior studies available. FINDINGS: Pulmonary arteries: Streak artifact across multiple vessels limits evaluation for subsegmental pulmon camille emboli. No pulmonary emboli to the segmental level. Aorta: Normal. No aortic aneurysm. No aortic dissection. Lungs: Small amount of mucous in the trachea and bilateral mainstem bronchi and lower bronchi. Bibasilar bronchial thickening and atelectasis. Pleural space: No pleural effusions or pneumothorax. Heart: Mild cardiomegaly. No abnormal pericardial effusion. Liver: Subcentimeter hypodensity in the liver likely a cyst. Stomach and bowel: Surgical sutures at the stomach body. Lymph nodes: Unremarkable. No enlarged lymph nodes. Bones/joints: Unremarkable. No acute fracture. Soft tissues: Unremarkable. IMPRESSION: 1. No pulmonary emboli to the segmental level. 2. Mild mucus debris in the bilateral bronchi and bibasilar atelectasis. Thank you for allowing us to participate in the care of your patient. Dictated and Authenticated by: Fatimah Stoll MD 12/26/2018 1:22 AM Central Time ([place] & [place]) FINAL REPORT EMERGENT AFTER HOURS CTA OF THE CHEST: TECHNIQUE: Multiple contiguous axial images were obtained in a CTA of the chest with contrast per pulmonary embo lism protocol. Three-D oblique MIP reformats and direct coronal reformats were performed. FINDINGS/IMPRESSION: I agree with the findings and impression given in the preliminary report per [facility] physician. 1. No evidence of pulmonary thromboembolism. 2. Bibasilar atelectasis. POS: [facility]
[2018-12-26] MEDS ORDERED: Acetylcysteine 20% 200 MG/ML 30 ML VIAL ONE (11:11)
[2018-12-26] MEDS ORDERED: PROPOFOL 200 MG/20 ML VIAL ONE (11:11)
[2018-12-26] MEDS ORDERED: Rocuronium Bromide 10 MG/ML (10ML VIAL) ONE (11:11)
[2018-12-26] MEDS ORDERED: traMADol HCl 50 MG TAB PO PRN (12:06)
[2018-12-26] MEDS ORDERED: Guaifenesin DM 100-10/5 ML UDCUP PO PRN (12:06)
[2018-12-26] MEDS ORDERED: Acetaminophen 325 MG TAB PO PRN (12:06)
[2018-12-26] MEDS ORDERED: Senokot S 8.6-50 MG TAB PO PRN (12:06)
[2018-12-26] MEDS ORDERED: Levofloxacin 500 mg/D5W 100 ml Premix Bag ONE (12:56)
[2018-12-26] MEDS ORDERED: ISOVUE-370 76%-LOCM 1 ML ONE (13:07)
[2018-12-26 13:15] LABS: HBCM Index 0.05 S/CO (0-0.79); HBSAg Index 0.33 S/CO (0-0.99); HIV (1/2) Antibody/Antigen Non-Reactive (NonReactive); HIV 1/2 INDEX 0.13 S/CO (<1.00); Hep A IgM AB Non-Reactive (NonReactive); Hep A IgM S/CO 0.24 S/CO (0-0.79); Hep B Surf Ag Non-Reactive S/CO (NonReactive); Hep C IgG Ab Non-Reactive (NonReactive); Hep C Index 0.14 S/CO (0-0.79); Hepatitis B Core IgM Abs Non-Reactive (NonReactive)
[2018-12-26 16:02] LABS: ANA Symphony (Qualitative) Negative (Negative); ANA Symphony (Quantitative) 0.2 Ratio (< 0.7 Negative); dsDNA IgG Antibody 0.6 IU/mL (<10 Negative)
--- NOTE | 2018-12-26 16:40 | HP ---
REASON FOR ADMISSION: Acute respiratory failure with hypoxia, pneumonia. HISTORY OF PRESENTING ILLNESS: The patient gives history of having shortness of breath, which has been progressively getting worse from the time he got discharged after abdominal surgery last month. He has coughing spells, but no expectoration as such. No complaints of fever at home. His last bowel movement was this morning , which was normal. 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 Garcia. He says he is wheelchair bound and has generalized weakness, has been progressively getting worse from March of last year. He is on nasal canula oxygen and is comfortable with spo2 of 98%. PAST MEDICAL AND SURGICAL HISTORY: History of paraparesis of lower extremities, hypertension, history of recent exploratory laparotomy with resection of abdominal sarcoma and partial gastrectomy, wedge and partial omentectomy by Dr. Garcia on 12/07/2018. CURRENT MEDICATIONS: 1. Gleevec. 2. Lisinopril with hydrochlorothiazide. 3. [place] p.r.n. 4. Coumadin 10 mg daily. 5. Ultram p.r.n. ALLERGIES: NO KNOWN DRUG ALLERGIES. PERSONAL HISTORY: Quit smoking cigarettes and marijuana prior to his last hospitalization for surgery here in November. Does not abuse alcohol. He lives with his . He is essentially wheelchair bound from March of last year. FAMILY HISTORY: Mother in her 70s. She has had history of coronary artery disease and heart failure. Father in his 60s, had history of coronary artery disease. Had three sisters and one brother. One sister had history of brain tumor, likely benign. Had a brother who of gastrointestinal stromal tumor with recurrence and metastasis to brain at the age of 65 years. The patient has six children. CODE STATUS: Full. POWER OF RUBY ENGINEER: His . REVIEW OF SYSTEMS: CONSTITUTIONAL: Negative for weight loss or gain, ability to conduct usual activities. SKIN: Negative for rash, itching. EYES: Negative for double vision, pain. ENT/MOUTH: Negative for nose bleeding, neck stiffness, pain, tenderness. CARDIOVASCULAR: Negative for palpitations, dyspnea on exertion, orthopnea. RESPIRATORY: Negative for shortness of breath, wheezing, cough, hemoptysis, fever or night sweats. GASTROINTESTINAL: Negative for poor appetite, abdominal pain, heartburn, nausea , vomiting, constipation, or diarrhea. GENITOURINARY: Negative for urgency, frequency, dysuria, nocturia. MUSCULOSKELETAL: Negative for pain, swelling. NEUROLOGIC/PSYCHIATRIC: Negative for anxiety, depression. ALLERGY/IMMUNOLOGIC: Negative for skin rash, bleeding tendency. PHYSICAL EXAMINATION: GENERAL: The patient is a 58-year-old male, who is currently not in any acute distress. VITAL SIGNS: Blood pressure 132/80, pulse 96 per minute, respiratory rate 22 per minute, temperature 98 degrees Fahrenheit, saturating 98% on room air. NECK: Supple. No elevated JVD. HEENT: Eyes; extraocular muscles intact. Pupils reacting to light. Oral cavity; mucous membranes are dry. No exudates or congestion. CARDIOVASCULAR: S1 and S2 heard, regular rhythm. RESPIRATORY: Air entry 1+ bilateral. Scattered rhonchi plus bilateral. Mild wheezes plus bilateral. ABDOMEN: Soft. Bowel sounds heard. No tenderness, rigidity, or guarding. Surgical scar is healing well. EXTREMITIES: There is 2+ peripheral edema. No calf tenderness. VASCULAR: Peripheral pulses 1+ bilateral. No ischemic ulcerations or gangrene. CENTRAL NERVOUS SYSTEM: The patient has chronic paraparesis in both lower extremities and is barely able to move a bit on the bed. He has intact sensation in his lower extremities. He can move both upper extremities with strength of around 4/5. The patient is right-handed. PSYCHIATRIC: The patient's mood is euthymic. No hallucinations or delusions. LABORATORY DATA: EKG done shows sinus rhythm at 75 beats per minute. White count of 6, hemoglobin and hematocrit 10 and 33, platelet count 398 with 71% neutrophils. Initial venous blood gas done on arrival in ER showed pH of 7.33, pCO2 of 57, pO2 of 27. Troponin I is indeterminate, peaking up to 0.10. CK-MB 5.6. BNP less than 10. Acute hepatitis panel is nonreactive. HIV 1 and 2 nonreactive. Electrolytes are stable. Serum bicarb 30, BUN 22, creatinine 0.6, serum glucose 117. Liver enzymes within normal limits. Albumin is 4.1. Influenza A and B antigens are negative. CT angio chest done shows no evidence of pulmonary emboli with mucus debris in bilateral bronchi and bibasilar atelectasis. CLINICAL IMPRESSION AND PLAN: The patient will be admitted to telemetry for initial acute respiratory failure with hypoxia, resolved with oxygen supplementation. The patient has progressive neurologic disease with bilateral paraparesis and is essentially wheelchair bound from March of 2018. He also has developed disuse atrophy in his upper extremities as well. In view of his progressive neurologic disease and current findings of pneumonia, aspiration needs to be ruled out. We will also obtain neurology consultation with Dr. Rachele Prieto, who is applications manager. The patient has not had any workup towards his paralysis due to insurance and financial issues. I am not sure if his stromal tumor has anything to do with his paralysis. We will continue him on cefepime and Levaquin along with DuoNebs and incentive spirometry. We will also continue his Coumadin as before for prior history of deep vein thrombosis. Lisinopril with hydrochlorothiazide will be added once his blood pressure comes up. We will also continue with Gleevec for stromal tumor as before. His overall prognosis is guarded. We will continue to closely monitor him on telemetry for now. Job ID: [id number] [facility]
[2018-12-26] MEDS ORDERED: hydrALAZINE 20 MG/ML VIAL ONE (16:48)
[2018-12-26] MEDS ORDERED: Nitroglycerin 2% Ointment 1 INCH/1 GM Packet ONE (16:48)
[2018-12-26 16:56] LABS: Actual Bicarbonate (HCO3a) 29.9 mEq/L (22-28); Base Excess (BEa) 0.1 mEq/L (-2.0 to +3.0); Calcium, Ionized 1.34 mmol/L (1.12-1.30); Carboxyhemoglobin (COHb) 1.2 gm% (0.0-3.0); Hemoglobin (Hb) 10.7 g/dL (14.0-18.0); Potassium - ABG Lab 3.62 mmol/L (3.70-5.30)
[2018-12-26 17:07] LABS: CO2 Tension 81.3 mmHg (35.0-45.0); O2 Tension (PaO2) 53.3 mmHg (80.0-100.0); pH, Arterial 7.18 (7.35-7.45)
[2018-12-26 17:08] LABS: ALV-art Gradient 558.075 (0-20)
[2018-12-26] MEDS ORDERED: Propofol 1,000 MG/100 ML VIAL IV ONE (17:14)
[2018-12-26] MEDS ORDERED: Lorazepam 2 MG/ML VIAL ONE (17:14)
[2018-12-26 17:15] LABS: Anion Gap 12 mmol/L (10-20); BUN (Urea Nitrogen) 20 mg/dL (8.4-25.7); Calc. Creatinine Clearance 185 mL/min (70-130); Calcium 9.8 mg/dL (7.8-10.44); Carbon Dioxide 29 mmol/L (22-29); Chloride 103 mmol/L (98-107); Estimated GFR-MDRD Greater than 90; Glucose 155 mg/dL (70-105); Potassium 3.9 mmol/L (3.5-5.1); Sodium 140 mmol/L (136-145)
[2018-12-26] MEDS ORDERED: Ventilator Sedation Protocol 1 EACH FS ONE (17:22)
[2018-12-26] MEDS ORDERED: Fentanyl BOLUS 250 ML IVPB PRN (17:25)
[2018-12-26] MEDS ORDERED: CCU Electrolyte Replacement 1 EACH FS ONE (17:25)
[2018-12-26] MEDS ORDERED: DISCONTINUE PREVIOUS NARCOTIC PAIN MEDICATIONS AND BENZODIAZEPINES FS SCH (17:25)
[2018-12-26] MEDS ORDERED: fentaNYL Citrate/PF 2,000 MCG in Sodium Chloride 0.9% 60 ML IV SCH (17:25)
[2018-12-26] MEDS ORDERED: Propofol BOLUS 1,000 MG/100 ML VIAL IV PRN (17:25)
[2018-12-26] MEDS ORDERED: Potassium Phosphate 12 MMOL in Sodium Chloride 0.9% 250 ML 250 ML IV PRN (17:38)
[2018-12-26] MEDS ORDERED: Magnesium Oxide 400 MG TAB PO PRN ×2 (17:38)
[2018-12-26] MEDS ORDERED: Potassium Chloride 20 MEQ TAB PO PRN (17:38)
[2018-12-26] MEDS ORDERED: Potassium Chloride 40 MEQ in Sodium Chloride 0.9% 250 ML 250 ML IVPB PRN (17:38)
[2018-12-26] MEDS ORDERED: Potassium Phosphate 15 MMOL in Sodium Chloride 0.9% 250 ML 250 ML IV PRN (17:38)
[2018-12-26] MEDS ORDERED: Magnesium 2 GM/50 ML 2 GM in Premix Bag 1 BAG IVPB PRN (17:38)
[2018-12-26] MEDS ORDERED: Potassium Phosphate 9 MMOL in Sodium Chloride 0.9% 100 ML IVPB PRN (17:38)
[2018-12-26] MEDS ORDERED: CCU ELECTROLYTE REPLACEMENT PROTOCOL FS PRN (17:38)
[2018-12-26] MEDS ORDERED: Pharmacy to Dose 1 EACH : VANC IVPB PRN (17:47)
[2018-12-26 17:57] LABS: Actual Bicarbonate (HCO3a) 27.6 mEq/L (22-28); Base Excess (BEa) 1.8 mEq/L (-2.0 to +3.0); CO2 Tension 49.2 mmHg (35.0-45.0); Calcium, Ionized 1.23 mmol/L (1.12-1.30); Carboxyhemoglobin (COHb) 0.9 gm% (0.0-3.0); Hemoglobin (Hb) 9.6 g/dL (14.0-18.0); O2 Tension (PaO2) 284.8 mmHg (80.0-100.0); Potassium - ABG Lab 3.17 mmol/L (3.70-5.30); pH, Arterial 7.37 (7.35-7.45)
[2018-12-26 17:59] LABS: Puncture Site LR
[2018-12-26] MEDS: Vancomycin HCl 1.5 GM in Sodium Chloride 0.9% 250 ML 300 ML IVPB SCH (18:26)
--- NOTE | 2018-12-26 19:02 | PDOC.EVN ---
Event Note - Event Note Event Note: Pt went into sudden onset respiratory failure around 5.15pm, got intubated due to severe resp acidosis. D/w ER physician who intubated, no sign of asp while intubation, had some mucus/clear secretion from right bronchus. Post intubation cxr is clear of any new infiltrate. ET in good position D/w Dr.Thomas Jeffrey over phone, she will see him in am, ?paraneoplastic syndrome with GIST, h/o paraplegia and progressive weakness. anti Hu ab ordered. D/w , will see him in am, had a huge mass on diagnosis but got shrunk with Gleevec, Gleevec not notorious to do flash pulm edema, unclear if GIST can do paraneoplastic syndrome, not usually. Histopath shows it to have low mitotic activity and moderate risk stromal tumor due to size. D/w , will see patient. Repeat ABG on 100%fio2 looks better. Might need a KUB xray at some point to r/o perforation, no free air on CTA chest and chest xray x2. ?lumbar puncture per neuro advice (paraplegia with no cause identified so far, has no reflexes in lower extremity, ?if its GB syndrome sequelae will any lab prove it) Prognosis guarded.
--- NOTE | 2018-12-26 19:40 | RAD ---
RADIOGRAPH CHEST 1 VIEW: Date: 12-26-18 Time: 4:14 p.m. HISTORY: 58-year-old male with respiratory distress. COMPARISON: 12-26-18 at 12:04 a.m. FINDINGS: This is a supine image which is insensitive for pneumothorax detection. New endotracheal tube distal tip overlies the midthoracic trachea. Subsegmental atelectasis again noted at bilateral bases. No pul monary edema. New finding of gaseous distention of the stomach. There is no consolidation or pulmonar y edema. IMPRESSION: 1. Status post intubation. 2. No other interval change. TEE POS: [facility]
--- NOTE | 2018-12-26 20:30 | RAD ---
ABDOMEN TWO VIEWS: Indication: History of abdominal tumor and code green alert. Comparison: CT abdomen/pelvis, 10-11-18. FINDINGS: There is a gastric catheter that projects in the expected region of the gastric fundus. The bowel gas pattern is unobstructed. A mild amount of retained stool is seen within the colon and rectum. No ronny picious calcification is evident. There is scattered degenerative change. Small phleboliths are seen within the region of the scrotum. There is mild body wall edema. IMPRESSION: 1. Gastric catheter. 2. No acute abnormality within the abdomen. 3. Mild to moderate anasarca. POS: [facility]
[2018-12-26] MEDS ORDERED: Famotidine 20 MG TAB PO SCH (21:00)
[2018-12-26] MEDS ORDERED: Vancomycin HCl 1 GM in Premix Bag 1 BAG IVPB SCH (21:00)
[2018-12-26] MEDS: Warfarin Sodium 10 MG TAB PO SCH (21:15)
[2018-12-26] MEDS: Cefepime 1 GM in Sodium Chloride 0.9% 100 ML IVPB SCH (21:15)
[2018-12-26] MEDS: Propofol 1,000 MG/100 ML VIAL IV PRN (22:36)
[2018-12-26] MEDS: Lorazepam 2 MG/ML VIAL SLOW IVP PRN (22:37)
[2018-12-27] MEDS: Vancomycin HCl 1.5 GM in Sodium Chloride 0.9% 250 ML 300 ML IVPB SCH ×3 (02:14→19:08)
[2018-12-27] MEDS: Propofol 1,000 MG/100 ML VIAL IV PRN ×4 (02:18→18:45)
[2018-12-27 06:02] LABS: #Lymphocytes 1.4 thou/uL (1.20-3.40); #Monocytes 0.6 thou/uL (0.11-0.59); #Neutrophils 4.1 thou/uL (1.40-6.50); %Basophils 0.8 % (0.0-1.0); %Eosinophils 0.3 % (0.0-10.0); %Lymphocytes 22.6 % (21.0-51.0); %Monocytes 9.4 % (0.0-10.0); %Neutrophils 66.9 % (42.0-75.0); Hemoglobin 8.5 g/dL (14.0-18.0); Mean Corpuscular HGB CONC 28.7 g/dL (32.0-36.0); Mean Corpuscular Hemoglobin 28.2 pg (27.0-31.0); Mean Corpuscular Volume 98.3 fL (78.0-98.0); Mean Platelet Volume 9.4 fL (7.4-10.4); Platelet Count 202 thou/uL (130-400); RBC Distribution Width 11.9 % (11.5-14.5); Red Blood Cell (RBC) Count 3.03 mill/uL (4.70-6.10); White Blood Cell (WBC) Count 6.2 thou/uL (4.8-10.8)
[2018-12-27 06:16] LABS: Anion Gap 14 mmol/L (10-20); BUN (Urea Nitrogen) 17 mg/dL (8.4-25.7); Calc. Creatinine Clearance 202 mL/min (70-130); Calcium 9.4 mg/dL (7.8-10.44); Carbon Dioxide 22 mmol/L (22-29); Chloride 107 mmol/L (98-107); Estimated GFR-MDRD Greater than 90; Glucose 87 mg/dL (70-105); Potassium 3.4 mmol/L (3.5-5.1); Sodium 140 mmol/L (136-145)
[2018-12-27 06:29] LABS: Actual Bicarbonate (HCO3a) 25.2 mEq/L (22-28); Base Excess (BEa) 3.7 mEq/L (-2.0 to +3.0); CO2 Tension 26.9 mmHg (35.0-45.0); Calcium, Ionized 1.19 mmol/L (1.12-1.30); Carboxyhemoglobin (COHb) 0.8 gm% (0.0-3.0); Hemoglobin (Hb) 8.6 g/dL (14.0-18.0); O2 Tension (PaO2) 138.2 mmHg (80.0-100.0)
[2018-12-27 06:31] LABS: ALV-art Gradient 113.375 (0-20); Puncture Site RRA; pH, Arterial 7.59 (7.35-7.45)
[2018-12-27] MEDS: Morphine 2 MG/ML SYRINGE SLOW IVP PRN ×6 (07:39→21:19)
[2018-12-27 07:42] LABS: INR-International Normal Ratio 2.4; PTT 44.5 SEC (22.9-36.1)
[2018-12-27] MEDS: Sodium Chloride 0.9% (PF) 10 ML VIAL FS PRN (08:38)
[2018-12-27] MEDS: Cefepime 1 GM in Sodium Chloride 0.9% 100 ML IVPB SCH ×2 (08:38→21:20)
[2018-12-27] MEDS: Pantoprazole 40 MG VIAL IVP SCH (08:38)
[2018-12-27] MEDS ORDERED: IMATINIB MESYLATE 400 MG PO SCH (09:00)
--- NOTE | 2018-12-27 10:21 | CON ---
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 He apparently has been seeing Oncology for chemotherapy evaluation. Yesterday, he was admitted to the hospital with weakness. He has been essentially wheelchair-bound now for a period of time. He has had about a year history of progressive weakness in the lower extremity because of insurance that he was not able to see any physician. Prior to that, he said the only medical problem was hypertension, but he was taking no medication. He has smoked a pack a day for most of his life without any prior history of TB, pneumonia, or bronchial asthma. In the ER, yesterday, he had a CT scan done, did not show any pulmonary emboli. He was on a telemetry unit shortly after he arrived with respiratory failure and respiratory acidosis, transferred to the ICU and intubated. Apparently, saturations in the ER were 85% on a nonrebreather. He was coughing some sputum, that appeared to be relatively clear. PAST MEDICAL HISTORY: 1. COPD. 2. Tobacco abuse. 3. History of lower extremity weakness, etiology unclear. 4. Status post resection of a gastric tumor, undergoing treatment by local oncology. PREVIOUS SURGERIES: None. CHRONIC MEDICATIONS: Include; 1. Lisinopril. 2. [place]. 3. Coumadin 10 a day. 4. Ultram. 5. Gleevec treatment for his stromal tumor. REVIEW OF SYSTEMS: Otherwise unremarkable. PHYSICAL EXAMINATION: GENERAL: On the vent, he is awake, alert, and responsive. VITAL SIGNS: His blood pressure 120/68 and pulse 118. CHEST: Decreased breath sounds in the left lung. CARDIAC: Normal S1 and S2. No gallop. ABDOMEN: No masses. LABORATORY DATA: His INR is 2.5. White count 6000, hemoglobin and hematocrit 8 and 29. PO2 is 138 and pCO2 on a PEEP of 10 and 40% and rate of 18. Lytes are normal. X-ray shows now a new left-sided effusion atelectatic area. IMPRESSION: 1. Respiratory failure, probably secondary to mucus plugging versus left lower lobe atelectasis. 2. 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 3. Long-term anticoagulation. PLAN: Continue antibiotics. Start neb treatments and steroids. Consider weaning and extubation in the next 24-48 hours. TIME SPENT: I spent 45-minute critical time extra. Job ID: [id number]
[2018-12-27 10:31] LABS: Bilirubin Negative (Negative); Blood, Urine Moderate (Negative); Clarity CLEAR (Clear); Glucose, Urine (Dipstick) Negative (Negative); Leukocyte Small (Negative); Nitrite Negative (Negative); Protein, Urine (Dipstick) Negative (Neg-Trace); Specific Gravity, Urine 1.017 (1.002-1.036); Urobilinogen 0.2 mg/dL (0.2-1.0); pH, Urine 6.5 (5.0-9.0)
[2018-12-27 10:34] LABS: Bacteria/HPF None Seen HPF (None Seen); Hyaline Casts/LPF 0-3 HYALINE CAST LPF (0-3 Hyaline); Squamous Epithelial None Seen HPF (0-3)
[2018-12-27] MEDS: methylPREDNISolone Sod Succ 40 MG VIAL IVP SCH ×2 (11:04→19:05)
--- NOTE | 2018-12-27 11:12 | RAD ---
AP CHEST: Date: 12/27/18 HISTORY: CCU follow-up. On ventilator. COMPARISON: 12/26/18. FINDINGS/IMPRESSION: Abnormal opacification in the left lung base obscures the left hemidiaphragm suggesting left basilar atelectasis or consolidation. Hazy atelectasis or infiltrate in the right mid lung is apparent. ET tu be and NG tube noted. POS: [facility]
[2018-12-27] MEDS: Lorazepam 2 MG/ML VIAL SLOW IVP PRN ×2 (13:07→23:07)
[2018-12-27] MEDS: Warfarin Sodium 10 MG TAB PO SCH (17:07)
[2018-12-27] MEDS ORDERED: Pancrelipase DR 12000 1 CAP FS PRN (17:21)
[2018-12-27] MEDS ORDERED: Sodium Bicarbonate Tab 325 MG TAB PER TUBE PRN (17:21)
[2018-12-27 17:36] LABS: Vancomycin, Trough 23.4 ug/mL
[2018-12-27] MEDS ORDERED: methylPREDNISolone Sod Succ/PF 125 MG/2 ML VIAL IVP SCH (19:15)
--- NOTE | 2018-12-27 19:23 | PDOC.PN ---
- Subjective Encounter Start Date: 12/27/18 Encounter Start Time: 19:21 Subjective: sedated, intubated - Objective Resuscitation Status - Order Detail: 12/26/18 11:57 Resuscitation Status Routine Resuscitation Status: FULL: Full Resuscitation Vital Signs & Weight: Vital Signs (12 hours) Temp Pulse Pulse Pulse Resp BP BP 12/27/18 18:00 99.2 F 17 12/27/18 16:00 100.0 F H 16 12/27/18 14:08 109 H 117/81 12/27/18 14:05 110 H 22 H 12/27/18 14:00 16 12/27/18 12:00 16 12/27/18 11:00 98.6 F 12/27/18 10:49 100 12/27/18 10:00 18 12/27/18 09:30 96 98 137/77 12/27/18 08:00 16 12/27/18 07:35 98.9 F BP Pulse Ox Pulse Ox Pulse Ox 12/27/18 18:00 12/27/18 16:00 12/27/18 14:08 12/27/18 14:05 92 L 12/27/18 14:00 12/27/18 12:00 100 12/27/18 11:00 12/27/18 10:49 12/27/18 10:00 12/27/18 09:30 117/83 99 100 12/27/18 08:00 12/27/18 07:35 96 Weight Admit Weight 209 lb Weight 209 lb Most Recent Monitor Data Heart Rate from ECG 98 NIBP 110/75 NIBP BP-Mean 86 Respiration from ECG 18 SpO2 100 I&O: 12/26/18 12/27/18 12/28/18 06:59 06:59 06:59 Intake Total 919 1037 Output Total 430 635 Balance 489 402 Result Diagrams: 12/27/18 05:23 12/27/18 05:23 Phys Exam - Physical Examination HEENT: PERRLA, moist MMs, sclera anicteric, TM's clear, oral pharynx no lesions , 2+ tonsils Neck: no nodes, no JVD, supple, full ROM Respiratory: no wheezing, no rales, no rhonchi + intubation Cardiovascular: RRR, no significant murmur, no rub Gastrointestinal: soft, non-tender, no distention, positive bowel sounds Musculoskeletal: edema present sedated, no response Dx/Plan (1) Acute respiratory failure Code(s): J96.00 - ACUTE RESPIRATORY FAILURE, UNSP W HYPOXIA OR HYPERCAPNIA Status: Acute Qualifiers: Respiratory failure complication: hypoxia Qualified Code(s): J96.01 - Acute respiratory failure with hypoxia (2) Abdominal mass Code(s): R19.00 - INTRA-ABD AND PELVIC SWELLING, MASS AND LUMP, UNSP SITE Status: Acute Qualifiers: Abdominal location: unspecified location Qualified Code(s): R19.00 - Intra- abdominal and pelvic swelling, mass and lump, unspecified site Comment: S/P Gleevac and S/P resection during recently (3) Primary intra-abdominal sarcoma Code(s): C49.4 - MALIGNANT NEOPLASM OF CONNECTIVE AND SOFT TISSUE OF ABDOMEN Status: Acute (4) Weakness of both lower extremities Code(s): R29.898 - OTH SYMPTOMS AND SIGNS INVOLVING THE MUSCULOSKELETAL SYSTEM Status: Chronic Comment: Nothing acute found on MRIs- degenerative L spine changes. Now wheel chair bound - Plan cont current plan of care, dueñas catheter, continue antibiotics, social services manager event note 12/26/18: Pt went into sudden onset respiratory failure around 5.15pm on admission day, got intubated due to severe resp acidosis. D/w ER physician who intubated, no sign of asp while intubation, had some mucus/clear secretion from right bronchus. Post intubation cxr is clear of any new infiltrate. ET in good position D/w Dr.Thomas Jeffrey over phone, she will see him in am, ?paraneoplastic syndrome with GIST, h/o paraplegia and progressive weakness. anti Hu ab ordered. D/w , will see him in am, had a huge mass on diagnosis but got shrunk with Gleevec, Gleevec not notorious to do flash pulm edema, unclear if GIST can do paraneoplastic syndrome, not usually. Histopath shows it to have low mitotic activity and moderate risk stromal tumor due to size. D/w , will see patient. Repeat ABG on 100%fio2 looks better. Might need a KUB xray at some point to r/o perforation, no free air on CTA chest and chest xray x2. ?lumbar puncture per neuro advice (paraplegia with no cause identified so far, has no reflexes in lower extremity, ?if its GB syndrome sequelae will any lab prove it) Prognosis guarded. * .
--- NOTE | 2018-12-27 22:09 | CON ---
DATE OF CONSULTATION: REASON FOR CONSULTATION: Gastrointestinal stromal tumor. HISTORY OF PRESENT ILLNESS: Mr. Marsh is a pleasant 58-year-old gentleman, who was diagnosed with gastrointestinal stromal tumor in April 2018. He had a mass measuring 14.5 x 9 x 14.5 cm in the anterior peritoneal cavity centered to the right of midline. Biopsy confirmed stromal tumor. At initial presentation in April 2018, the patient had developed weakness in his lower extremities. Approximately 4 months prior to diagnosis, the motor weakness was more pronounced on the right side. The patient was using a walker for the past 2 to 3 months prior to diagnosis. The mass was found incidentally on a MRI of the spine. Over the past year, the patient has had progressive paraparesis of his lower extremities and is now wheelchair bound. Due to financial and social issues, he has not followed up with Neurology. He did have a tumor resection by Dr. Garcia in November. He continues his oral Gleevec. He presented to the emergency room on this admission for shortness of breath. He progressed to respiratory failure and is currently intubated and on the ventilator. The patient also has a history of DVT. He was started on Coumadin several months ago. PAST MEDICAL HISTORY: 1. Gastrointestinal stromal tumor. 2. Hypertension. 3. Bilateral paraparesis of his lower extremities. PAST SURGICAL HISTORY: Laparotomy with tumor resection. FAMILY HISTORY: Hypertension and COPD. SOCIAL HISTORY: . Former smoker. No alcohol or illicit drug use. REVIEW OF SYSTEMS: Unable to obtain secondary to intubation. PHYSICAL EXAMINATION: VITAL SIGNS: Temperature 98.6, pulse is 109, respiratory rate is 16, blood pressure 117/81, and 100% on ventilator. GENERAL: No acute distress. HEENT: Normocephalic and atraumatic. NECK: Supple. CV: Regular rate and rhythm. LUNGS: Scattered rhonchi anterior. ABDOMEN: Soft and nontender. Bowel sounds are positive. EXTREMITIES: 2+ peripheral edema. SKIN: No rash. HEMATOLOGIC: No petechiae or purpura. NEUROLOGIC: The patient is sedated on Diprivan. PERTINENT LABORATORY DATA AND X-RAYS: Current WBCs are 6.2, hemoglobin 8.5, hematocrit 29.7, platelet count is 202,000, 67% neutrophils, 27% lymphocytes. PT is 26, INR is 2.4, PTT is 44.5. Sodium is 140, potassium 3.4, chloride 107, CO2 is 22, BUN is 17, creatinine 0.54, calcium is 9.4. Bilirubin is 0.4, AST is 14, ALT is 17, alkaline phosphatase is 86. Troponin is 0.106. BNP is negative. Serum total protein 7.4, albumin 4.1, and globulin 3.2. DAJA workup is negative. Hepatitis panel is negative. HIV negative. CT angio showed no evidence of pulmonary embolism. ASSESSMENT: 1. Gastrointestinal stromal tumor, status post resection. 2. Progressive paraparesis. 3. Acute respiratory failure. DISCUSSION: The patient's Gleevec will be held as it cannot be crushed. We will resume it once he is off the ventilator. Neurology has been consulted and will evaluate the patient for his progressive weakness. We will follow the patient's hospital course closely. Thank you for the consult. Job ID: [id number]
[2018-12-27] MEDS ORDERED: Lorazepam 2 MG/ML VIAL ONE (23:02)
--- NOTE | 2018-12-28 00:36 | CON ---
DATE OF CONSULTATION: CHIEF COMPLAINT: Weakness. HISTORY OF PRESENT ILLNESS: History was obtained both from the chart and also family, who was by bedside. 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 He has been on Gleevec. He has had weakness in his muscles since February or March 2018. He is unable to lift his arms. His arms are too weak. He never had evaluation by neurologist. He complained of pain in the legs and his feet do get burning. There are no bladder issues. No history of constipation. He became short of breath, could not breathe; therefore, he was brought to the hospital. He is currently intubated and ventilated. The patient never had an ischemic event or a stroke. PAST MEDICAL HISTORY: Positive for lower extremity and upper extremity weakness. 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 Garcia on 12/07/2018. CURRENT MEDICATIONS: He takes, 1. Gleevec. 2. Lisinopril. 3. Eek. 4. Coumadin. 5. Ultram. ALLERGIES: NO KNOWN DRUG ALLERGIES. PERSONAL AND SOCIAL HISTORY: He lives with his family, quit smoking cigarettes and marijuana prior to his last hospitalization for surgery in November. He lives with his . He is mostly wheelchair bound since last March. FAMILY HISTORY: Mother in her 70s with coronary artery disease and heart failure. Father in his 60s, has history of coronary artery disease. The patient had three sisters and one brother. One sister had history of brain tumor. His brother of gastrointestinal stromal tumor and metastasis to brain at age of 65. The patient has six children. He is a full code. REVIEW OF SYSTEMS: Difficult to obtain, the patient is intubated, not fully able to cooperate and give information. LABORATORY DATA: Laboratory workup: White count 6.2, hemoglobin 8.5, hematocrit 29.7, and platelet count 202. Coags; PT 26, INR 2.4, and PTT 44.5. Chemistry; sodium 140, potassium 3.4, chloride 107, bicarbonate 22, BUN 17, and creatinine is 0.54. DIAGNOSTIC DATA: The patient had prior MRIs of the cervical, thoracic, and lumbar spine, which did not show any demyelinating lesion and these studies were done during the admission in March 2018 and I had a chance to review those films. PHYSICAL EXAMINATION: VITAL SIGNS: Blood pressure 117/81, pulse is 93, and temperature 98.6. GENERAL APPEARANCE: The patient is on ventilator. He has low-dose propofol. CHEST: Clear vesicular breathing. CARDIOVASCULAR: S1 and S2 heard. No murmurs. ABDOMEN: Soft. NEUROLOGIC: The patient has slight droopiness of eyelids. Can follow some commands. Cranial nerves; normal extraocular movements. Pupils are reactive. No facial asymmetry. Normal hearing. Unable to examine tongue or posterior aspect of the oropharynx. Strength in the upper extremities is grossly at 4/5 distally, but 3/5 proximal. Lower extremity strength was diffusely weak with 1/5 strength. Muscle groups tested are iliopsoas, hamstrings, quadriceps, ankle dorsiflexion, plantar flexion, deltoid, biceps, triceps, wrist extension and flexion, finger extension and flexion. Sensory, cerebellar, difficult to evaluate. IMPRESSION: The patient is a 58-year-old man with generalized muscle weakness since last March and he is mostly in a wheelchair. He is unable to lift his arms per family. 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 It is unclear whether this type of tumor would cause any paraneoplastic neurological syndromes. Differential diagnosis includes paraneoplastic neuropathy associated [id number]-[id number] or potential for Lambert-Eaton myasthenic syndrome does exist and this could be an unusual situation given the type of tumor he has. RECOMMENDATIONS: He will need EMG nerve conduction studies to come up with a definitive diagnosis for this patient. Please send antibody test for anti-Hu antibodies as well as voltage-gated calcium channel antibodies. I will follow up the patient with you. For now, supportive care. Job ID: [id number]
[2018-12-28] MEDS: methylPREDNISolone Sod Succ/PF 125 MG/2 ML VIAL IVP SCH ×2 (00:53→05:47)
[2018-12-28] MEDS: Propofol 1,000 MG/100 ML VIAL IV PRN (02:45)
[2018-12-28] MEDS: Morphine 2 MG/ML SYRINGE SLOW IVP PRN (03:16)
[2018-12-28 05:49] LABS: INR-International Normal Ratio 2.5; PTT 60.6 SEC (22.9-36.1); Prothrombin Time 27.4 SEC (12.0-14.7)
[2018-12-28 07:00] LABS: Actual Bicarbonate (HCO3a) 26.9 mEq/L (22-28); Base Excess (BEa) 1.4 mEq/L (-2.0 to +3.0); CO2 Tension 46.9 mmHg (35.0-45.0); Calcium, Ionized 1.28 mmol/L (1.12-1.30); Carboxyhemoglobin (COHb) 1.6 gm% (0.0-3.0); Hemoglobin (Hb) 9.2 g/dL (14.0-18.0); O2 Tension (PaO2) 87.6 mmHg (80.0-100.0); Potassium - ABG Lab 3.83 mmol/L (3.70-5.30); pH, Arterial 7.38 (7.35-7.45)
[2018-12-28 07:01] LABS: ALV-art Gradient 138.975 (0-20); Puncture Site LRA
[2018-12-28] MEDS: Lorazepam 2 MG/ML VIAL SLOW IVP PRN (07:44)
[2018-12-28] MEDS: Pantoprazole 40 MG VIAL IVP SCH (08:32)
[2018-12-28] MEDS: Vancomycin HCl 1.5 GM in Sodium Chloride 0.9% 250 ML 300 ML IVPB SCH ×2 (08:32→20:18)
[2018-12-28] MEDS: Cefepime 1 GM in Sodium Chloride 0.9% 100 ML IVPB SCH ×2 (08:32→20:17)
[2018-12-28] MEDS ORDERED: DC Sedation Protocol FS ONE (08:47)
--- NOTE | 2018-12-28 09:12 | RAD ---
CHEST 1 VIEW: Date: 12/28/18 HISTORY: Respiratory insufficiency. COMPARISON: 12/27/18. FINDINGS: Endotracheal tube and NG tubes in place. Monitor leads overlie the chest. Pleural and parenchymal opa city changes in the left base with some linear and parenchymal changes in both lower lung zones. No n ew process. No pneumothorax. IMPRESSION: Overall stable appearing pleural and parenchymal opacity changes in both bases, worse in the left bas e. Continue short-term follow-up. POS: [facility]
--- NOTE | 2018-12-28 09:46 | PRG ---
DATE OF SERVICE: 12/28/2018 SUBJECTIVE: The patient remains intubated on the vent. OBJECTIVE: VITAL SIGNS: Pulse 110, blood pressure is 124/85, sats are 100%. GENERAL: He is awake, responsive on the CPAP. He is doing well. CHEST: Decreased breath sounds. Bilateral rhonchi. CARDIAC: Normal S1 and S2. No gallops. ABDOMEN: No masses. LABORATORY DATA: INR is 2.5. PO2 was 87, pCO2 . IMAGING DATA: X-ray shows worsening left-sided infiltrate. IMPRESSION: 1. Respiratory failure. 2. Left lung atelectasis. 3. Pneumonia. 4. Severe deconditioning. 5. Paraplegia of unknown etiology. PLAN: Following the bronchoscopy, the patient will be weaned and extubated. Awaiting results of his bronchial washings culture. Continue nutrition, PT, supportive care. This is a one-half hour of critical care time exclusive of the bronchoscopy. Job ID: [id number]
[2018-12-28] MEDS: methylPREDNISolone Sod Succ 40 MG VIAL IVP SCH ×2 (10:54→20:18)
--- NOTE | 2018-12-28 11:00 | OP ---
DATE OF PROCEDURE: 12/28/2018 PROCEDURE PERFORMED: Therapeutic bronchoscopy. INDICATION: Yony Marsh is a 58-year-old gentleman with left lung atelectasis. DESCRIPTION OF PROCEDURE: After informed consent from the patient and family, a bite block was placed in the endotracheal tube. Bronchoscope was passed. Distal trachea showed pau was sharp. The left lung was completely occluded with thick tenacious pus extending all the way to the basilar segments. It took about 10 minutes to completely clean the entire left lung, extensive pus and mucus plugging involving the entire left lower lung and the left upper lung. Right lung inspected thereafter, which was unremarkable. Minimal amount of secretion was seen. Bronchoscope was removed. The patient was given adequate oxygenation and bronchoscope was repassed again and both lungs were lavaged until clear of the left lung. The patient's washings have already been sent for Gram stain, C and S. The patient otherwise tolerated the procedure well. Job ID: [id number]
--- NOTE | 2018-12-28 14:20 | PRG ---
DATE OF SERVICE: 12/28/2018 CHIEF COMPLAINT: Weakness. INTERVAL HISTORY: The patient was extubated this morning and he is tolerating it okay and then there is question of whether he will be intubated again. The patient's family is by his bedside. No change in weakness was noted. LABORATORY WORKUP: He is still waiting on some of the antibody results. White count 6.2, hemoglobin 8.5, hematocrit 29.7, and platelet count 202. Chemistry; 140 sodium, potassium 3.4, chloride 107, bicarb 22, BUN 17, creatinine 0.54, glucose 87. His DAJA is negative. Hepatitis, HIV are all negative. PHYSICAL EXAMINATION: VITAL SIGNS: Temperature 99, blood pressure 143/92, pulse 113. He is on BiPAP today and higher intellectual functions. GENERAL: He tries to follow commands and answer questions with head nod. CRANIAL NERVE EXAMINATION: Extraocular movements are normal. No facial asymmetry. Motor bulk normal. Tone normal. Strength is 3/5 proximal in the upper extremities in the right side and 2/5 proximal in the left upper extremity, distal was 4/5 and lower extremity movement is limited to toes only. He can wiggle his toes and he has 0/5 proximal weakness in lower extremities. IMPRESSION: The patient with long-standing muscle weakness since last year. He is now intubated. Question was whether he has paraneoplastic neuropathy or other form of neuromuscular weakness such as myasthenia or Lambert-Eaton syndrome. RECOMMENDATIONS: He will need to see Dr. Spencer as outpatient for EMG muscle nerve conduction studies. I will request antibodies to voltage gated calcium channel and also anti-striational and acetylcholine receptor antibodies as well to rule out myasthenia and we will follow up with you clinically. Job ID: [id number]
--- NOTE | 2018-12-28 16:44 | PDOC.PN ---
- Subjective Encounter Start Date: 12/28/18 Encounter Start Time: 16:41 Subjective: extubated S/P Bronchoscopy, now with bipap - Objective Resuscitation Status - Order Detail: 12/26/18 11:57 Resuscitation Status Routine Resuscitation Status: FULL: Full Resuscitation Vital Signs & Weight: Vital Signs (12 hours) Temp Pulse Pulse Resp BP BP Pulse Ox 12/28/18 16:00 99.5 F 12/28/18 15:02 98 124/79 12/28/18 14:39 102 H 19 99 12/28/18 12:00 99.0 F 100 12/28/18 11:14 113 H 12/28/18 09:47 104 H 136/93 H 12/28/18 09:19 111 H 21 H 99 12/28/18 08:00 19 12/28/18 07:18 100 12/28/18 07:00 99.4 F 12/28/18 06:45 100 120/93 H 12/28/18 06:41 100 19 99 Pulse Ox 12/28/18 16:00 12/28/18 15:02 12/28/18 14:39 12/28/18 12:00 12/28/18 11:14 12/28/18 09:47 100 12/28/18 09:19 12/28/18 08:00 12/28/18 07:18 12/28/18 07:00 12/28/18 06:45 12/28/18 06:41 Weight Admit Weight 209 lb Weight 209 lb Most Recent Monitor Data Heart Rate from ECG 81 NIBP 121/80 NIBP BP-Mean 93 Respiration from ECG 19 SpO2 100 I&O: 12/27/18 12/28/18 12/29/18 06:59 06:59 06:59 Intake Total 919 2127 90 Output Total 430 1040 425 Balance 489 1087 -335 Result Diagrams: 12/27/18 05:23 12/27/18 05:23 Phys Exam - Physical Examination HEENT: PERRLA, moist MMs, sclera anicteric, TM's clear, oral pharynx no lesions , 2+ tonsils Neck: no nodes, no JVD, supple, full ROM Respiratory: no wheezing +coarse breath sounds Cardiovascular: RRR, no significant murmur, no rub Gastrointestinal: soft, no distention Musculoskeletal: no edema, pulses present paraplegia Skin: no rash, normal turgor, cap refill <2 seconds Dx/Plan (1) Acute respiratory failure Code(s): J96.00 - ACUTE RESPIRATORY FAILURE, UNSP W HYPOXIA OR HYPERCAPNIA Status: Acute Qualifiers: Respiratory failure complication: hypoxia Qualified Code(s): J96.01 - Acute respiratory failure with hypoxia (2) Empyema lung Code(s): J86.9 - PYOTHORAX WITHOUT FISTULA Status: Acute Comment: see above (3) Abdominal mass Code(s): R19.00 - INTRA-ABD AND PELVIC SWELLING, MASS AND LUMP, UNSP SITE Status: Acute Qualifiers: Abdominal location: unspecified location Qualified Code(s): R19.00 - Intra- abdominal and pelvic swelling, mass and lump, unspecified site Comment: S/P Gleevac and S/P resection during recenT ADMISSION (4) Primary intra-abdominal sarcoma Code(s): C49.4 - MALIGNANT NEOPLASM OF CONNECTIVE AND SOFT TISSUE OF ABDOMEN Status: Acute Comment: see above (5) Weakness of both lower extremities Code(s): R29.898 - OTH SYMPTOMS AND SIGNS INVOLVING THE MUSCULOSKELETAL SYSTEM Status: Chronic Comment: Nothing acute found on MRIs- degenerative L spine changes. Now wheel chair bound - Plan cont current plan of care, continue antibiotics, DVT proph w/SCDs Continue Warfarin, follow up on daily INR, SUPERFICIAL le THROMBOSIS previously , no history of DVT. * .
[2018-12-28] MEDS: Warfarin Sodium 5 MG TAB PO SCH (16:50)
[2018-12-29 04:16] LABS: INR-International Normal Ratio 2.6; PTT 53.5 SEC (22.9-36.1); Prothrombin Time 27.7 SEC (12.0-14.7)
--- NOTE | 2018-12-29 08:52 | RAD ---
PORTABLE CHEST: INDICATIONS: Pneumonia followup. COMPARISON: 12/28/2018 FINDINGS: Increasing right effusion and right basilar atelectasis when compared to the prior study. Small left effusion. Borderline cardiomegaly. ET tube and NG tube have been removed. IMPRESSION: Evidence of increasing right effusion and right basilar atelectasis or infiltrate. POS: [facility]
[2018-12-29] MEDS: Vancomycin HCl 1.5 GM in Sodium Chloride 0.9% 250 ML 300 ML IVPB SCH ×2 (08:53→21:05)
[2018-12-29] MEDS: Cefepime 1 GM in Sodium Chloride 0.9% 100 ML IVPB SCH ×2 (08:54→21:06)
[2018-12-29] MEDS: Pantoprazole 40 MG VIAL IVP SCH (08:54)
[2018-12-29] MEDS: methylPREDNISolone Sod Succ 40 MG VIAL IVP SCH ×2 (08:54→21:05)
--- NOTE | 2018-12-29 08:55 | PRG ---
DATE OF SERVICE: 12/29/2018 SUBJECTIVE: This morning, he is awake, alert, responsive, he is requiring BiPAP. OBJECTIVE: VITAL SIGNS: Pulse 102, blood pressure 130/80, sats 96% on 2 L, respirations 25. CHEST: Rhonchi, left greater than right. CARDIAC: Normal S1 and S2. No gallop. ABDOMEN: No masses. IMPRESSION: 1. Unknown neuromuscular disease. 2. Laparotomy, gastric sarcoma on chemotherapy. 3. Left lung atelectasis, probably from weakness, neuromuscular disease, chronic back pain. PLAN: 1. Continue broad-spectrum antibiotics. 2. Continue steroids. 3. Continue neb treatments. One-half hour of critical time. Job ID: [id number]
[2018-12-29 12:09] LABS: Reference Lab Name LABCORP
[2018-12-29 12:10] LABS: Ref Lab Test Ordered VGCCA
--- NOTE | 2018-12-29 14:13 | PRG ---
DATE OF SERVICE: 12/29/2018 CHIEF COMPLAINT: Weakness. INTERVAL HISTORY: The patient is off the ventilator now and he is on BiPAP. He is tolerating BiPAP. No family was present today during this visit. His current workup, we are still waiting on some of the antibody titers to come back. PHYSICAL EXAMINATION: VITAL SIGNS: Temperature 98.8, blood pressure 142/93, pulse is 96. GENERAL APPEARANCE: The patient is on BiPAP. NEUROLOGIC: He is able to follow commands and tries to answer questions. Pupils 4 mm, reactive. Normal sensation of face and upper and lower extremities bilaterally. Tongue midline. Motor exam bulk normal. Tone is decreased in lower extremities. He has 1+ strength in proximal lower extremities and distal was 2/5. Upper extremity proximal strength was 3/5 and distal 4/5. IMPRESSION: The patient with possible neuromuscular disorder since last March. Whether or not it is related to his carcinoma is unclear at this time. We are waiting on anti-Hu antibodies and myasthenia panel and jwsa-ywzxpaw-yqshy calcium channel antibodies results at this time. He will definitely need an EMG nerve conduction studies, which can be done as outpatient once he is discharged. Please refer this patient to Dr. Spencer, so he can keep a followup with Dr. Spencer. I will be available to see him as needed. Job ID: [id number]
[2018-12-29] MEDS ORDERED: Clopidogrel Bisulfate 75 MG TAB ONE (16:29)
[2018-12-29] MEDS: Warfarin Sodium 5 MG TAB PO SCH (16:31)
[2018-12-29 17:12] LABS: Ionized Calcium 4.8 mg/dL (4.5-5.6)
--- NOTE | 2018-12-29 19:14 | PDOC.PN ---
- Subjective Encounter Start Date: 12/29/18 Encounter Start Time: 19:13 Subjective: Seen and examined on Bipap - Objective Resuscitation Status - Order Detail: 12/26/18 11:57 Resuscitation Status Routine Resuscitation Status: FULL: Full Resuscitation Vital Signs & Weight: Vital Signs (12 hours) Temp Pulse Pulse Pulse Resp BP BP 12/29/18 18:46 96 20 12/29/18 16:00 99.1 F 12/29/18 14:39 98 128/85 12/29/18 14:38 103 H 21 H 12/29/18 12:00 98.8 F 12/29/18 11:35 97 107 H 142/91 H 12/29/18 10:27 91 125/77 12/29/18 07:15 BP Pulse Ox Pulse Ox Pulse Ox 12/29/18 18:46 100 12/29/18 16:00 12/29/18 14:39 12/29/18 14:38 99 12/29/18 12:00 12/29/18 11:35 158/102 H 98 100 12/29/18 10:27 12/29/18 07:15 100 Weight Admit Weight 209 lb Weight 209 lb Most Recent Monitor Data Heart Rate from ECG 96 NIBP 140/93 NIBP BP-Mean 108 Respiration from ECG 24 SpO2 100 I&O: 12/28/18 12/29/18 12/30/18 06:59 06:59 06:59 Intake Total 2127 1173 465 Output Total 1040 950 480 Balance 1087 223 -15 Result Diagrams: 12/27/18 05:23 12/27/18 05:23 Phys Exam - Physical Examination Constitutional: NAD HEENT: PERRLA, moist MMs, sclera anicteric Bipap mask in place Neck: no nodes, no JVD, supple, full ROM Respiratory: no wheezing, no rales, no rhonchi, clear to auscultation bilateral Cardiovascular: no significant murmur, no rub Gastrointestinal: non-tender Musculoskeletal: pulses present Dx/Plan (1) Acute respiratory failure Code(s): J96.00 - ACUTE RESPIRATORY FAILURE, UNSP W HYPOXIA OR HYPERCAPNIA Status: Acute Qualifiers: Respiratory failure complication: hypoxia Qualified Code(s): J96.01 - Acute respiratory failure with hypoxia Comment: 12/27: S/P acute respiratory failure, hypoxia requiring intubation 12/28: Extubated on 12/28/18 after Bronchoscopy bronchoscopy showing large thicK pus/ mucus plugging the left lung, requiring aspiration of the pus for more than 10 minutes Continue Vanc and Levaquin, follow up on creatinine, follow up on Bronch culture. Blood cx so far negative (2) Empyema lung Code(s): J86.9 - PYOTHORAX WITHOUT FISTULA Status: Acute Comment: see above (3) Abdominal mass Code(s): R19.00 - INTRA-ABD AND PELVIC SWELLING, MASS AND LUMP, UNSP SITE Status: Acute Qualifiers: Abdominal location: unspecified location Qualified Code(s): R19.00 - Intra- abdominal and pelvic swelling, mass and lump, unspecified site Comment: S/P Gleevac and S/P resection during recenT ADMISSION (4) Bilateral lower extremity edema Code(s): R60.0 - LOCALIZED EDEMA Status: Acute (5) Primary intra-abdominal sarcoma Code(s): C49.4 - MALIGNANT NEOPLASM OF CONNECTIVE AND SOFT TISSUE OF ABDOMEN Status: Acute Comment: see above (6) Superficial thrombosis of leg Code(s): I82.819 - EMBOLISM AND THROMBOSIS OF SUPERFICIAL VN UNSP LOW EXTRM Status: Acute Qualifiers: Laterality: left Qualified Code(s): I82.812 - Embolism and thrombosis of superficial veins of left lower extremity (7) HTN (hypertension) Code(s): I10 - ESSENTIAL (PRIMARY) HYPERTENSION Status: Chronic Qualifiers: Hypertension type: essential hypertension Qualified Code(s): I10 - Essential (primary) hypertension (8) Weakness of both lower extremities Code(s): R29.898 - OTH SYMPTOMS AND SIGNS INVOLVING THE MUSCULOSKELETAL SYSTEM Status: Chronic Comment: Nothing acute found on MRIs- degenerative L spine changes. Now wheel chair bound - Plan PT/OT, social research assistant, respiratory therapy Continue ICU care * .
[2018-12-29 20:21] LABS: Vancomycin, Trough 16.9 ug/mL
[2018-12-30 05:37] LABS: #Lymphocytes 1.3 thou/uL (1.20-3.40); #Monocytes 0.7 thou/uL (0.11-0.59); #Neutrophils 10.6 thou/uL (1.40-6.50); %Basophils 0.3 % (0.0-1.0); %Eosinophils 0.1 % (0.0-10.0); %Lymphocytes 10.5 % (21.0-51.0); %Monocytes 5.6 % (0.0-10.0); %Neutrophils 83.6 % (42.0-75.0); Hemoglobin 8.7 g/dL (14.0-18.0); Mean Corpuscular Hemoglobin 29.5 pg (27.0-31.0); Mean Corpuscular Volume 95.1 fL (78.0-98.0); Mean Platelet Volume 8.2 fL (7.4-10.4); Platelet Count 346 thou/uL (130-400); RBC Distribution Width 11.7 % (11.5-14.5); Red Blood Cell (RBC) Count 2.95 mill/uL (4.70-6.10); White Blood Cell (WBC) Count 12.7 thou/uL (4.8-10.8)
[2018-12-30 05:45] LABS: INR-International Normal Ratio 2.8; PTT 51.1 SEC (22.9-36.1); Prothrombin Time 29.9 SEC (12.0-14.7)
[2018-12-30 05:58] LABS: Anion Gap 12 mmol/L (10-20); BUN (Urea Nitrogen) 19 mg/dL (8.4-25.7); Calc. Creatinine Clearance 221 mL/min (70-130); Calcium 9.6 mg/dL (7.8-10.44); Carbon Dioxide 26 mmol/L (22-29); Chloride 104 mmol/L (98-107); Estimated GFR-MDRD Greater than 90; Glucose 93 mg/dL (70-105); Sodium 138 mmol/L (136-145)
[2018-12-30] MEDS: Pantoprazole 40 MG VIAL IVP SCH (08:52)
[2018-12-30] MEDS: methylPREDNISolone Sod Succ 40 MG VIAL IVP SCH ×2 (08:52→21:14)
[2018-12-30] MEDS: Vancomycin HCl 1.5 GM in Sodium Chloride 0.9% 250 ML 300 ML IVPB SCH (08:53)
[2018-12-30] MEDS: Cefepime 1 GM in Sodium Chloride 0.9% 100 ML IVPB SCH ×2 (09:04→21:16)
--- NOTE | 2018-12-30 09:14 | RAD ---
PORTABLE CHEST: History: Respiratory distress. Comparison: Prior day's exam. FINDINGS: Heart size is enlarged. Right sided pleural and parenchymal lung changes are similar to the prior exa m. Also, some minimal parenchymal change in the left base. IMPRESSION: Stable exam. POS: [facility]
--- NOTE | 2018-12-30 09:16 | PRG ---
DATE OF SERVICE: 12/30/2018 SUBJECTIVE: Yony Marsh is a 58-year-old gentleman. OBJECTIVE: GENERAL: This morning, he is awake, alert, and responsive. He is better. He was on noninvasive ventilation on all night. VITAL SIGNS: Sats 100% on 2 L, temperature 98, pulse 97, blood pressure 137/89. CHEST: Decreased breath sounds, right lung. Left lung unremarkable. CARDIAC: Normal S1, S2. No gallops. ABDOMEN: No masses. LABORATORY DATA: INR is 2.8. White count 25251, H and H of 8 and 28, platelet count is normal. Lytes are normal. IMPRESSION: 1. Paraplegia of unknown etiology. 2. Gastric sarcoma resection. 3. Marked weakness. 4. Atelectasis. 5. Retained secretions. PLAN: Awaiting chest x-ray. If he has significant secretions, we will consider doing a repeat bronchoscopy and lavage. Otherwise, discontinue vancomycin, if there is no evidence of any Staph at this stage. Continue Maxipime. One-half hour of critical time. Job ID: [id number]
--- NOTE | 2018-12-30 09:54 | PRG ---
DATE OF SERVICE: 12/30/2018 SUBJECTIVE: The patient is seen and examined at the bedside. He wears the BiPAP mask during my visit. He said that he is feeling better. He has been extubated yesterday. OBJECTIVE: VITAL SIGNS: Blood pressure is 137/89, pulse is 90 beats per minute, O2 saturation is 100%, and respiratory rate is 26. HEENT: His pupils are respond to light properly. NECK: Not examined. LUNGS: Breath sounds are diminished at both bases. HEART: S1 and S2 normal. No S3. No S4. ABDOMEN: Soft and nontender. Bowel sounds are present. EXTREMITIES: No clubbing, cyanosis, or edema. NEUROLOGIC: He follows my commands. He moves his upper extremities. The strength is 4/5 similar bilaterally. The lower extremities is 3/5 similar bilaterally and even less when he tries to lift his knees. He is not able to lift them at all. LABORATORY DATA: White count of 12.7, hemoglobin 8.7, hematocrit 28.0, platelet count is 346,000, and neutrophils 83.6. INR 2.8, PT 29.9, APTT 51.1. Chemistry within normal limits. Multiple test pending. Myasthenia gravis, anti-HU antibodies, hjvn-[id number]-tbxmm calcium channel antibodies. Microbiology: Respiratory culture, gram stain showed 0-5 epithelial cells, moderate wbc's, and rare gram-positive cocci in clusters. Two blood cultures negative in 48 hours. IMPRESSION: 1. Acute respiratory failure, status post extubation. Actually, the patient is on BiPAP now. I anticipate weaning him off the BiPAP to nasal cannula per Pulmonary today. 2. GIST tumor, status post section. The patient is going to be restarted on Gleevec since he is extubated now and he can swallow. 3. Weakness in both lower extremities of unclear etiology whether this is paraplastic syndrome or this is related to the tumor, which was affecting the spine. Workup is still pending. PLAN: Plan is to continue his antibiotics. Continue PT and OT. DVT prophylaxis with SCDs. He is on warfarin and his INR is therapeutic. We will continue cefepime and vancomycin. We will leave this up to commanding officer traffic division/Pulmonary regarding management of his antibiotic treatment. Job ID: [id number]
--- NOTE | 2018-12-30 13:43 | OP ---
DATE OF PROCEDURE: 12/30/2018 PROCEDURE PERFORMED: Bronchoscopy lavage. INDICATION: Right lung atelectasis. DESCRIPTION OF PROCEDURE: After informed consent, bite block was placed. The flexible bronchoscope, Olympus, was used. Cetacaine was sprayed. The vocal cords were normal. The trachea appeared to be normal. Shilpa was sharp. The right lung was completely occluded with clear mucoid impaction. This was suction lavaged numerous times. Mucomyst 5 mL of 1:10,000 instilled until all the mucus plugs were cleaned and removed. The bronchoscope was removed, which revealed adequate ventilation. The bronchoscope was repassed again, and at this time, the left lung was inspected. Previously, he has had pus in the lung. The left lung now was completely normal. No endobronchial obstruction or pus was seen. The area was lavaged with normal saline until completely clear. The right lung was reinspected again. Once again, there was no further mucus plug seen. The patient otherwise tolerated the procedure well. Job ID: [id number]
[2018-12-30] MEDS: GLEEVEC PO SCH (15:27)
[2018-12-30] MEDS: Warfarin Sodium 5 MG TAB PO SCH (17:29)
[2018-12-31 05:27] LABS: #Lymphocytes 1.2 thou/uL (1.20-3.40); #Monocytes 0.9 thou/uL (0.11-0.59); #Neutrophils 12.5 thou/uL (1.40-6.50); %Basophils 0.3 % (0.0-1.0); %Eosinophils 0.3 % (0.0-10.0); %Lymphocytes 8.5 % (21.0-51.0); %Monocytes 6.1 % (0.0-10.0); %Neutrophils 84.9 % (42.0-75.0); Hemoglobin 9.7 g/dL (14.0-18.0); Mean Corpuscular HGB CONC 31.3 g/dL (32.0-36.0); Mean Corpuscular Hemoglobin 29.6 pg (27.0-31.0); Mean Corpuscular Volume 94.6 fL (78.0-98.0); Mean Platelet Volume 7.9 fL (7.4-10.4); Platelet Count 352 thou/uL (130-400); RBC Distribution Width 11.9 % (11.5-14.5); Red Blood Cell (RBC) Count 3.26 mill/uL (4.70-6.10); White Blood Cell (WBC) Count 14.7 thou/uL (4.8-10.8)
[2018-12-31 05:31] LABS: INR-International Normal Ratio 3.1; PTT 44.5 SEC (22.9-36.1); Prothrombin Time 31.7 SEC (12.0-14.7)
[2018-12-31 05:42] LABS: Anion Gap 16 mmol/L (10-20); BUN (Urea Nitrogen) 17 mg/dL (8.4-25.7); Calc. Creatinine Clearance 217 mL/min (70-130); Calcium 9.7 mg/dL (7.8-10.44); Carbon Dioxide 22 mmol/L (22-29); Chloride 104 mmol/L (98-107); Estimated GFR-MDRD Greater than 90; Glucose 97 mg/dL (70-105); Potassium 4.2 mmol/L (3.5-5.1); Sodium 138 mmol/L (136-145)
--- NOTE | 2018-12-31 08:11 | RAD ---
CHEST 1 VIEW: HISTORY: Respiratory insufficiency. COMPARISON: 12/30/2018. FINDINGS: Again noted is moderate right-sided volume loss, stable from 12/30/2018, but definitely new from a 12/17 study. Minimal parenchymal changes in the left lung base. IMPRESSION: Persistent right-sided volume loss with some right costophrenic angle blunting. Minimal parenchymal changes in the left base. Continued short-term followup. POS: [facility]
[2018-12-31] MEDS: Cefepime 1 GM in Sodium Chloride 0.9% 100 ML IVPB SCH ×2 (08:39→21:44)
[2018-12-31] MEDS: methylPREDNISolone Sod Succ 40 MG VIAL IVP SCH ×2 (08:40→21:44)
[2018-12-31] MEDS: Sodium Chloride 0.9% (PF) 10 ML VIAL FS PRN (08:40)
[2018-12-31] MEDS: Pantoprazole 40 MG VIAL IVP SCH (08:40)
--- NOTE | 2018-12-31 08:56 | PRG ---
DATE OF SERVICE: 12/31/2018 SUBJECTIVE: This morning, he is awake, alert, and responsive. Unfortunately, x-ray was taken and shows his right lower lung is atelectatic, scarring/infiltrate in the left lung. OBJECTIVE: VITAL SIGNS: Blood pressure 130/80, saturations are 100% on BiPAP, respiratory rate 20, afebrile. CHEST: Decreased breath sounds. No wheezing. CARDIAC: Normal S1 and S2. No gallops. ABDOMEN: No masses. LABORATORY DATA: INR 3.1. White count 14,000, H and H 9 and 30. IMPRESSION: 1. Recurrent atelectasis secondary to neuromuscular weakness. 2. Essentially paraplegic. 3. Status post treatment for gastric sarcoma. PLAN: Continue neb treatments, steroids. EzPAP and neb treatments every 4 hours. If he continues to have recurrent atelectatic changes with a poor cough, may require trach. However, try aggressive PT, neb treatments, supportive care. Continue to observe in the ICU. One-half hour of critical care time. Job ID: [id number]
[2018-12-31] MEDS ORDERED: GLEEVEC PO SCH (09:00)
[2018-12-31 09:01] LABS: Vancomycin, Trough 9.7 ug/mL
[2018-12-31] MEDS: GLEEVEC PO SCH (10:19)
[2018-12-31] MEDS ORDERED: Lorazepam 2 MG/ML VIAL SLOW IVP SCH (11:00)
[2018-12-31] MEDS: Warfarin Sodium 5 MG TAB PO SCH (17:40)
[2019-01-01 05:06] LABS: PTT 60.9 SEC (22.9-36.1); Prothrombin Time 40.2 SEC (12.0-14.7)
[2019-01-01 05:13] LABS: INR-International Normal Ratio 4.2
[2019-01-01 05:25] LABS: Anion Gap 15 mmol/L (10-20); BUN (Urea Nitrogen) 16 mg/dL (8.4-25.7); Calc. Creatinine Clearance 198 mL/min (70-130); Calcium 9.8 mg/dL (7.8-10.44); Carbon Dioxide 26 mmol/L (22-29); Chloride 102 mmol/L (98-107); Estimated GFR-MDRD Greater than 90; Glucose 102 mg/dL (70-105); Potassium 4.3 mmol/L (3.5-5.1); Sodium 139 mmol/L (136-145)
[2019-01-01 05:59] LABS: Hemoglobin 9.9 g/dL (14.0-18.0); Mean Corpuscular HGB CONC 31.5 g/dL (32.0-36.0); Mean Platelet Volume 7.4 fL (7.4-10.4); Platelet Count 380 thou/uL (130-400); RBC Distribution Width 12.1 % (11.5-14.5); Red Blood Cell (RBC) Count 3.32 mill/uL (4.70-6.10); White Blood Cell (WBC) Count 15.4 thou/uL (4.8-10.8)
[2019-01-01 06:00] LABS: Band 7 % (5-11); Lymphocytes 7 % (21-51); MDiff Complete? YES; Monocytes 5 % (0-10); Neutrophil 81 % (42-75); Platelet Morphology Comment Appears Adequate
--- NOTE | 2019-01-01 08:29 | PRG ---
DATE OF SERVICE: 01/01/2019 SUBJECTIVE: The patient was seen and examined at the bedside. The patient's family member is present in the room during my visit. He is in C2. There was no any unexpected events overnight. Yesterday, we tried to switch him to nasal cannula from BiPAP and he got very anxious and he was not able to tolerate this, so he is back on BiPAP. OBJECTIVE: VITAL SIGNS: Blood pressure is 109/87, pulse is 83, respiratory rate 21, and O2 saturation is 100%. HEENT: His pupils are responding to light properly. Sclerae are nonicteric. Oral cavity was not examined since he is on BiPAP mask. LUNGS: Breath sounds diminished at both bases with rales at the right base. No wheezing. HEART: S1 and S2, normal. No S3. No S4. ABDOMEN: Soft, nontender, and nondistended. Bowel sounds are present. No organomegaly. EXTREMITIES: No clubbing, cyanosis, or edema. NEUROLOGIC: He follows my commands. He is alert and oriented x4. His lower extremities are weak, approximately 2/5 similar bilaterally. His strength in upper extremities is good. I would say almost normal. LABORATORY DATA: White count of 15.4, hemoglobin 9.9, hematocrit 31.5, and platelet count is 380,000. INR is 4.2. PT 40.2, APTT 60.9. Electrolytes within normal limits. BUN 16, creatinine 0.56, calcium 9.8. So far workup is negative. Hepatitis panel is nonreactive. Immunology panel came back with negative DAJA, neuronal nuclear antibodies Hu/Ri less than 1 to 10, which is negative. Anti-double stranded DNA IgG antibodies 0.6. Acetylcholine receptor-binding antibodies less than 0.03. Chest x-ray personally reviewed by me showed increased right-sided volume loss and some blunting of the right costophrenic angle and this is more advanced than what we saw yesterday. IMPRESSION: 1. Acute respiratory failure, status post extubation. The patient is not able to tolerate of BiPAP nasal cannula. 2. GIST tumor, status post resection. The patient is back on his Gleevec. 3. Weakness in both lower extremities of unclear etiology. So far the workup is negative. PLAN: Plan is to hold his warfarin today since his INR is elevated. Most likely, we will have to hold his Coumadin tomorrow too, but we will have the INR level tomorrow and will make decision based on that. He will continue on the antibiotics, which is levofloxacin and cefepime. He will continue on BiPAP until principal military analyst make decision about the change. We will continue on methylprednisolone. We will continue PT/OT. He will have to have EMGs done after he is discharged from the hospital since this test is not available in the hospital. Job ID: [id number]
[2019-01-01] MEDS: GLEEVEC PO SCH (08:50)
[2019-01-01] MEDS: Cefepime 1 GM in Sodium Chloride 0.9% 100 ML IVPB SCH ×2 (08:53→23:17)
[2019-01-01] MEDS: methylPREDNISolone Sod Succ 40 MG VIAL IVP SCH ×2 (08:53→23:18)
[2019-01-01] MEDS: Pantoprazole 40 MG VIAL IVP SCH (08:53)
[2019-01-01] MEDS: Sodium Chloride 0.9% (PF) 10 ML VIAL FS PRN (08:53)
--- NOTE | 2019-01-01 09:32 | RAD ---
PORTABLE CHEST: Date: 01/01/19 HISTORY: CCU follow-up. Dyspnea. COMPARISON: 12/31/18. FINDINGS: The right basilar opacification is again noted, consistent with right effusion, right basilar atelect asis, or consolidation. Left lung remains clear. IMPRESSION: No acute interval change from yesterday. POS: TARIQ
[2019-01-01] MEDS ORDERED: Succinylcholine Chloride 20 MG/ML 10 ml SYRINGE FS ONE (15:00)
--- NOTE | 2019-01-01 16:04 | CON ---
DATE OF CONSULTATION: 01/01/2019 REASON FOR CONSULTATION: Respiratory failure, possible pneumonia. 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 In September 2018, he presented with lower extremity swelling. He had been unable to ambulate and had been wheelchair bound with worsening lower extremity edema. He was identified with left lower extremity deep vein thrombosis, which appear to be superficial. On Gleevec, there has been substantial decrease in the size of the tumor, this was about 60% reduction in size. Pulmonary embolism was identified and the patient was placed on Coumadin. 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 He did have did not have a neurology evaluation. On December 06, 2018, patient underwent exploratory laparotomy with abdominal sarcoma resection and partial gastrectomy. This time patient presented with hypoxemia and dyspnea. He had some wheezing, but no fever reported. He does have some swelling of extremities and is currently still on blood thinners. No headaches, no visual symptoms, sore throat, odynophagia, dysphagia. No chest pain, no abdominal pain or diarrhea and no skin disorder. He is wheelchair bound. Lives with family in the home setting. PAST MEDICAL HISTORY: 1. GIST tumor with Gleevec, marked reduction and then eventual resection of the tumor and partial gastrectomy. 2. Progressive worsening weakness over the past few months, which has not yet been fully worked up, so it is not clear, if this is due to myopathy or neuropathy. SOCIAL HISTORY: Former smoker, quit recently. ALLERGIES: NONE. FAMILY HISTORY: Noncontributory. CURRENT MEDICATIONS: Include: 1. Albuterol. 2. Creon. 3. Cefepime. 4. Levofloxacin. 5. Magnesium. 6. Methylprednisolone. 7. Gleevec. 8. Potassium. 9. Warfarin. PHYSICAL EXAMINATION: VITAL SIGNS: T-max 100.1, blood pressure 130/80, pulse 105. SKIN: No areas of skin breakdown. The patient has a peripheral IV access and he has an indwelling Spivey catheter. I's and O's have been variably positive and negative. HEENT: Ocular movements conjugate. Pupils are reactive. Oral cavity moist, quite a few teeth in place. BiPAP mask in place. NECK: Supple. Diffusely weak. LUNGS: He has a hard time with respiratory excursions. Breath sounds are diminished diffusely. HEART: S1 and S2. Regular rate without obvious murmurs or S3. ABDOMEN: Soft, not distended or tender. No ascites. No bladder distention, no joint inflammatory activity. He is diffusely weak with hyporeflexia. Plantar responses are indifferent. Dorsalis pedis 1+. The cognitive functions seems to be preserved. He follows commands. He establishes eye contact. LABORATORY DATA: White cell count is up from 6 to 15.4, hemoglobin 10, platelets 398, 71% neutrophils. INR was 2.4, now 4.2. On admission, pH 7.18, pCO2 81, pO2 53. Sodium 140, creatinine 0.54. Liver profile normal. Albumin 4.1, globulin 3.3. Voltage gated calcium antibodies are pending. Previous acetylcholine receptor antibody negative, autoimmune panel negative. Microbiology with negative blood cultures, negative influenza assay. IMAGING STUDIES: Include a chest x-ray with no infiltrates. The most recent chest x-ray with right basilar opacification. Echocardiogram with EF of 65%. Normal LV function and right ventricular size and function. Mild valvular regurgitation. ASSESSMENT: 1. Gastrointestinal stromal tumor, on Gleevec, recent resection. 2. Progressive diffuse muscle weakness, either due to neuropathy or less likely myopathy with negative acetylcholine receptor antibody test recently completed. DISCUSSION: The most likely scenario is neuropathy or myopathy associated with his tumor in the setting of a paraneoplastic manifestation, possibility of Gleevec neuropathy, which has been described, although infrequently. Myasthenia gravis has been evaluated and ruled out. Most likely, his respiratory failure is due to this phenomenon. EMG nerve conduction studies would be helpful to confirm the diagnosis and differentiate myopathy from neuropathy, but I do not think that they are feasible in the inpatient setting. Any infectious complications, if present are result from this primary issue. Job ID: [id number]
[2019-01-01] MEDS ORDERED: Lorazepam 2 MG/ML VIAL ONE (18:41)
[2019-01-01] MEDS ORDERED: Propofol 1,000 MG/100 ML VIAL IV ONE (18:41)
[2019-01-01] MEDS ORDERED: DISCONTINUE PREVIOUS NARCOTIC PAIN MEDICATIONS AND BENZODIAZEPINES FS SCH (18:44)
[2019-01-01] MEDS ORDERED: Propofol BOLUS 1,000 MG/100 ML VIAL IV PRN (18:44)
[2019-01-01] MEDS ORDERED: fentaNYL Citrate/PF 2,000 MCG in Sodium Chloride 0.9% 60 ML IV SCH (18:44)
[2019-01-01] MEDS ORDERED: Propofol 1,000 MG/100 ML VIAL IV PRN (18:44)
[2019-01-01] MEDS ORDERED: Fentanyl BOLUS 250 ML IVPB PRN (18:44)
[2019-01-01 19:15] LABS: Analyzer IN Cardio ER; Base Excess (BEa) -0.1 mEq/L (-2.0 to +3.0); CO2 Tension 31.6 mmHg (35.0-45.0); Calcium, Ionized 1.19 mmol/L (1.12-1.30); Carboxyhemoglobin (COHb) 0.2 gm% (0.0-3.0); Hemoglobin (Hb) 9.5 g/dL (14.0-18.0); O2 Tension (PaO2) 225.3 mmHg (80.0-100.0); Potassium - ABG Lab 3.76 mmol/L (3.70-5.30); pH, Arterial 7.48 (7.35-7.45)
[2019-01-01 19:16] LABS: Puncture Site R BRACHIAL
[2019-01-01] MEDS ORDERED: Digoxin 0.5 MG/2 ML AMP ONE ×2 (19:25→19:42)
[2019-01-01] MEDS ORDERED: Sodium Chloride 0.9% 1,000 ML IV SCH ×3 (19:30→20:45)
[2019-01-01] MEDS ORDERED: Digoxin 0.5 MG/2 ML AMP SLOW IVP SCH ×2 (19:30→19:45)
--- NOTE | 2019-01-01 19:33 | RAD ---
CHEST ONE VIEW: 01/01/19 HISTORY: New intubation, respiratory insufficiency. COMPARISON: 01/01/19. There is some persistent right sided volume loss. An endotracheal tube has been placed with the tip i n satisfactory location. In addition, NG tube has been placed with the tip extending into what appear s to be a right lower lobe bronchus. There is some increased parenchymal density in the right lung pr obably related to some progressive volume loss and atelectasis or developing pneumonia. The left robin g is clear. IMPRESSION: NG tube extending in the right lower lobe bronchus which needs to be replaced. Right sided volume los s with some progressive pleural and parenchymal opacity changes in the right chest. Stable left chest . Findings were discussed with nurse, Cristy Gould at 7:15 p.m. Code CR POS: RRE
[2019-01-01] MEDS ORDERED: Norepinephrine 8 MG/250 ML BAG IVPB PRN (19:44)
[2019-01-01] MEDS ORDERED: Amiodarone HCl 150 MG in Dextrose 5% in Water 100 ML IVPB SCH (19:45)
--- NOTE | 2019-01-01 23:29 | RAD ---
AP VIEW ABDOMEN: 01/01/19 The header for this exam, PORTABLE CHEST, is incorrect. This is an AP VIEW ABDOMEN. HISTORY: NG tube placement. AP view abdomen demonstrates placement of a gastric tube. The distal tip overlies the body of the sto mach. The side port is in the region of the gastric fundus. IMPRESSION: Recently placed NG tube is in good position overlying the expected location of the stomach. POS: FRANCIA
--- NOTE | 2019-01-01 23:45 | PRG ---
DATE OF SERVICE: 01/01/2019 SUBJECTIVE: Mr. Marsh is seen this morning and again this evening. He is actually reported that he was doing quite well with noninvasive ventilatory support, but he really would not tolerate support off noninvasive ventilation. Apparently, this evening, he had a large bowel movement and was laid down flat to bath and had a respiratory arrest. He was resuscitated and intubated. Followup chest x-ray shows that the NG tube is in the lung. This will be removed. He went into atrial fib during this episode, but now has a heart rate of 88. He was given 0.75 total of digoxin and was started on Cordarone. He is now awake and alert. He moves upper extremities equally. He is extremely weak and cough, I have explained to the family. His oximetry is 97%. His lungs are clear. Heart, regular rhythm. Abdomen is soft. LABORATORY DATA: White count today was 15.4, hemoglobin 9.9, platelets 380,000. Sodium 139, potassium 4.3, chloride 102, bicarb 26, BUN 16, and creatinine 0.56. PH 7.48, pCO2 of 31, pO2 of 225. IMPRESSION: Respiratory failure secondary to inability to ventilate supine or clear secretions. He is fortunately has no neurological sequela of this. He will remain intubated. He will likely need a tracheostomy. CRITICAL CARE TIME: 40 minutes. Job ID: [id number]
[2019-01-02] MEDS: Sodium Chloride 0.9% 1,000 ML IV SCH ×4 (02:33→20:55)
[2019-01-02 04:56] LABS: #Eosinphils 0.1 thou/uL (0.0-0.7); #Lymphocytes 1.1 thou/uL (1.20-3.40); #Monocytes 0.8 thou/uL (0.11-0.59); #Neutrophils 10.1 thou/uL (1.40-6.50); %Eosinophils 0.4 % (0.0-10.0); %Lymphocytes 9.1 % (21.0-51.0); %Monocytes 6.7 % (0.0-10.0); %Neutrophils 83.8 % (42.0-75.0); Hemoglobin 8.4 g/dL (14.0-18.0); Mean Corpuscular HGB CONC 31.8 g/dL (32.0-36.0); Mean Corpuscular Hemoglobin 29.9 pg (27.0-31.0); Mean Corpuscular Volume 94.2 fL (78.0-98.0); Mean Platelet Volume 7.3 fL (7.4-10.4); Platelet Count 339 thou/uL (130-400); RBC Distribution Width 12.4 % (11.5-14.5); White Blood Cell (WBC) Count 12.1 thou/uL (4.8-10.8)
[2019-01-02 05:02] LABS: Prothrombin Time 41.9 SEC (12.0-14.7)
[2019-01-02 05:03] LABS: PTT 57.9 SEC (22.9-36.1)
[2019-01-02 05:24] LABS: Anion Gap 14 mmol/L (10-20); BUN (Urea Nitrogen) 17 mg/dL (8.4-25.7); Calc. Creatinine Clearance 198 mL/min (70-130); Calcium 8.9 mg/dL (7.8-10.44); Carbon Dioxide 24 mmol/L (22-29); Chloride 106 mmol/L (98-107); Estimated GFR-MDRD Greater than 90; Glucose 139 mg/dL (70-105); Potassium 3.6 mmol/L (3.5-5.1); Sodium 140 mmol/L (136-145)
[2019-01-02] MEDS: Amiodarone HCl 450 MG in Dextrose 5% in Water 250 ML IVPB SCH ×2 (05:42→19:50)
[2019-01-02 05:48] LABS: INR-International Normal Ratio 4.4
[2019-01-02 07:02] LABS: Actual Bicarbonate (HCO3a) 21.9 mEq/L (22-28); Analyzer IN Cardio ER; Base Excess (BEa) 0.7 mEq/L (-2.0 to +3.0); Calcium, Ionized 1.22 mmol/L (1.12-1.30); Carboxyhemoglobin (COHb) 0.7 gm% (0.0-3.0); Hemoglobin (Hb) 11.8 g/dL (14.0-18.0); O2 Tension (PaO2) 82.2 mmHg (80.0-100.0); Potassium - ABG Lab 3.57 mmol/L (3.70-5.30); pH, Arterial 7.55 (7.35-7.45)
[2019-01-02 07:03] LABS: CO2 Tension 25.6 mmHg (35.0-45.0); Puncture Site RRA
[2019-01-02] MEDS ORDERED: Sodium Chloride 0.9% 15 ML NEB ONE ×2 (07:48→07:49)
[2019-01-02] MEDS: Cefepime 1 GM in Sodium Chloride 0.9% 100 ML IVPB SCH ×2 (08:17→20:26)
[2019-01-02] MEDS: Pantoprazole 40 MG VIAL IVP SCH (08:24)
[2019-01-02] MEDS: Sodium Chloride 0.9% (PF) 10 ML VIAL FS PRN (08:24)
[2019-01-02] MEDS: methylPREDNISolone Sod Succ 40 MG VIAL IVP SCH ×2 (08:25→20:26)
--- NOTE | 2019-01-02 09:23 | PRG ---
DATE OF SERVICE: 01/02/2019 SUBJECTIVE: Apparently, he went into respiratory arrest yesterday. He got intubated, and there are no any other unexpected events overnight. He remains on ventilator. His settings on the ventilator; tidal volume 550, PEEP of 5, pressure support 10, and FiO2 of 40%. Apparently, also he went into atrial fibrillation and was started on amiodarone and digoxin. OBJECTIVE: GENERAL: He is sedated and intubated orally. NG tube is in place. HEENT: Pupils are responding to light sluggishly. Sclerae are nonicteric. LUNGS: Breath sounds are diminished at both bases. Rales are present at the right base. HEART: S1 and S2, somewhat distant. No S3. No S4. Irregularly irregular. ABDOMEN: Soft and nondistended. EXTREMITIES: 1+ peripheral edema. NEUROLOGIC: He is sedated, and the neurological examination is postponed. LABORATORY DATA: White count of 12.1, hemoglobin 8.4, hematocrit 26.4, platelet count is 339. INR is 4.4, PT 41.9, APTT 57.9. ABG showed pH of 7.55, pCO2 of 25.6, pO2 of 82.2. Electrolytes are within normal limits. Creatinine 0.56, glucose 139, calcium 8.9. Microbiology, no new findings. Acetylcholine receptor binding antibodies less than 0.03. Still other tests are pending for his neuromuscular disease. IMPRESSION: 1. Acute respiratory failure. The patient was intubated last night. He went into respiratory arrest. 2. Gastrointestinal stromal tumor, status post resection, back on Gleevec. 3. Weakness in both lower extremities of unclear etiology. So far, workup is negative. 4. Hyper-anticoagulation. Coumadin on hold. We will continue on current regimen with steroids and antibiotics and supportive care. He will remain intubated, and as per mine motor operator, most likely, he will get tracheostomy. Job ID: [id number]
--- NOTE | 2019-01-02 09:26 | RAD ---
CHEST 1 VIEW: Date: 01/02/19 HISTORY: Respiratory insufficiency. COMPARISON: 01/01/19. FINDINGS: Again noted is some right-sided volume loss and pleural and parenchymal opacity changes in the right chest. Lift support tubes in place. Left chest is stable. IMPRESSION: Stable appearing chest. Stable right-sided volume loss and abnormal pleural and parenchymal opacity. POS: FRANCIA
[2019-01-02] MEDS: GLEEVEC PO SCH (09:36)
--- NOTE | 2019-01-02 16:11 | PRG ---
DATE OF SERVICE: 01/02/2019 SUBJECTIVE: Yony Marsh is doing well. He is awake and alert. He is on Precedex. He says he is very comfortable on Precedex. OBJECTIVE: VITAL SIGNS: Blood pressure 120/71, heart rate 70, and respiratory rate is 20. LUNGS: Clear. HEART: Regular rhythm. ABDOMEN: Soft. EXTREMITIES: Without clubbing, cyanosis, or edema. LABORATORY DATA: White count 12.1, hemoglobin 8.4, and platelets 339,000. Electrolytes are normal. Blood gas; pH 7.55, CO2 of 25, and PO2 of 82. His rate down to 12. IMPRESSION: Respiratory failure, secondary to mucus plugging, secondary to diaphragm weakness. He may need with a tracheostomy. The etiology of his ascending muscle weakness is unclear. I would wonder if he did not have paraneoplastic chronic immune demyelinating polyneuropathy or something along while those lines. His family tells me that he has had no structural spinal cord abnormalities identified. I reviewed the MRI reports and he was actually seen by neurosurgery last fall when this started and they felt there was nothing surgical causing his weakness. Unfortunately, we only have one neurologist that comes to the hospital at this point in time and he does not come every day. I also do not have the ability to do nerve conduction or electromyography studies in the hospital. He will probably need to be transferred to a facility that can sort thru this. He clearly clinically has an ascending paralysis that has reached a point where he cant effectively cough or breathe. 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 He is not weanable at this point. Job ID: [id number] [facility]
--- NOTE | 2019-01-02 17:31 | CON ---
DATE OF CONSULTATION: TIME: 30 minutes. HISTORY OF PRESENT ILLNESS: The patient is a 58-year-old gentleman with no known cardiac history, who developed a rapid heart rate. This gentleman has been undergoing chemotherapy for a GIST tumor. He unfortunately has developed progressive paraparesis. The patient was admitted with respiratory failure. Yesterday, he went into a rapid irregular heart rhythm. The patient at this time is intubated. PAST MEDICAL HISTORY: Significant for: 1. GIST tumor. 2. Hypertension. PAST SURGICAL HISTORY: He has had an abdominal sarcoma and gastrectomy, omentectomy surgery. SOCIAL HISTORY: Former smoker. ALLERGIES: NO KNOWN DRUG ALLERGIES. MEDICATIONS: See nursing list. PHYSICAL EXAMINATION: VITAL SIGNS: Intubated gentleman with a blood pressure of 101/60. NECK: Full. LUNGS: Coarse breath sounds bilateral. HEART: Regular rate and rhythm. Normal S1, S2. No murmur. ABDOMEN: Distended. EXTREMITIES: Showed trace edema. LABORATORY DATA: White blood cell count 12.1, hemoglobin 8.4, hematocrit 26.4, platelets 339. His sodium was 140, potassium 3.6, chloride 106, bicarb 24, BUN 17, creatinine 0.56. His INR was 4.4. Initial EKG with sinus rhythm, otherwise unremarkable EKG. Telemetry monitoring revealed atrial fib with a rapid ventricular response. IMPRESSION: 1. New onset atrial fibrillation. 2. Respiratory failure. 3. Status post gastrointestinal stromal tumor. 4. Hypertension. 5. Paraparesis. This gentleman last night developed rapid atrial fibrillation. He converted with IV amiodarone. I would continue him on this medication for this time. The patient's INR has been elevated as this interacts with his Coumadin. I would hold this medication at this time. We will follow this patient with you through his hospitalization. TIME: 30 minutes. Job ID: [id number]
--- NOTE | 2019-01-03 03:54 | PRG ---
DATE OF SERVICE: 12/31/2018 SUBJECTIVE: The patient is seen and examined at the bedside. He is in ICU C02. He wears the mask for BiPAP, and this morning, his BiPAP mask was discontinued and he was switched to nasal cannula. He became very anxious despite of using the anxiety medications, he was hyperventilating to the point that we had to put him back on his BiPAP mask. OBJECTIVE: VITAL SIGNS: Blood pressure is 114/73, pulse is 86, respirations 20. HEENT: His pupils are responding to light properly. Sclerae are nonicteric. The BiPAP mask is on during my visit. LUNGS: Clear. HEART: S1 and S2, normal. No S3. No S4. ABDOMEN: Soft, nontender. Bowel sounds are present. No organomegaly. EXTREMITIES: No clubbing, cyanosis, or edema. NEUROLOGIC: Postponed at this point. LABORATORY DATA: Labs showed a white count of 14.7, hemoglobin 9.7, hematocrit 30.9, platelet count 352,000. Electrolytes within normal limits. BUN 17, creatinine 0.51. Vancomycin trough 9.7. IMPRESSION: 1. Acute respiratory failure, status post extubation, currently on BiPAP, not being able to be weaned off so far with one negative trial. 2. Gastrointestinal stromal tumor, status post resection. Started on Gleevec since he can swallow now. 3. Weakness in both lower extremities of uncertain etiology. DISCUSSION: He shows some weakness in his lower extremities along with possible weakness in his respiratory muscles. At this point, he is continued on continued on IV steroids. He is continued Gleevec. He is continued on warfarin. His INR is therapeutic. All his workup so far is negative for etiology of his musculoskeletal, neuro weakness. EMGs cannot be done in the hospital, only in outpatient offices of neurologist, and will be postponed until followup with Dr. Spencer after the discharge. We will continue on cefepime based on recommendation per an harvest manager. Job ID: [id number]
[2019-01-03] MEDS: Sodium Chloride 0.9% 1,000 ML IV SCH ×4 (05:26→20:39)
[2019-01-03 05:31] LABS: #Eosinphils 0.1 thou/uL (0.0-0.7); #Lymphocytes 1.2 thou/uL (1.20-3.40); #Monocytes 1.2 thou/uL (0.11-0.59); #Neutrophils 10.5 thou/uL (1.40-6.50); %Basophils 0.1 % (0.0-1.0); %Eosinophils 0.4 % (0.0-10.0); %Monocytes 9.5 % (0.0-10.0); Hemoglobin 8.2 g/dL (14.0-18.0); Mean Corpuscular HGB CONC 31.6 g/dL (32.0-36.0); Mean Corpuscular Hemoglobin 29.9 pg (27.0-31.0); Mean Corpuscular Volume 94.5 fL (78.0-98.0); Mean Platelet Volume 7.6 fL (7.4-10.4); Platelet Count 326 thou/uL (130-400); RBC Distribution Width 12.7 % (11.5-14.5); Red Blood Cell (RBC) Count 2.75 mill/uL (4.70-6.10)
[2019-01-03 05:42] LABS: PTT 49.1 SEC (22.9-36.1); Prothrombin Time 39.3 SEC (12.0-14.7)
[2019-01-03 05:46] LABS: Anion Gap 9 mmol/L (10-20); BUN (Urea Nitrogen) 16 mg/dL (8.4-25.7); Calc. Creatinine Clearance 221 mL/min (70-130); Calcium 8.6 mg/dL (7.8-10.44); Carbon Dioxide 25 mmol/L (22-29); Chloride 109 mmol/L (98-107); Estimated GFR-MDRD Greater than 90; Glucose 170 mg/dL (70-105); Potassium 3.6 mmol/L (3.5-5.1); Sodium 139 mmol/L (136-145)
[2019-01-03 07:11] LABS: Analyzer IN Cardio OR; Base Excess (BEa) -0.4 mEq/L (-2.0 to +3.0); Calcium, Ionized 1.23 mmol/L (1.12-1.30); Carboxyhemoglobin (COHb) 0.6 gm% (0.0-3.0); Hemoglobin (Hb) 8.8 g/dL (14.0-18.0); O2 Tension (PaO2) 116.3 mmHg (80.0-100.0); Potassium - ABG Lab 3.37 mmol/L (3.70-5.30); pH, Arterial 7.51 (7.35-7.45)
[2019-01-03 07:12] LABS: Puncture Site RR
[2019-01-03] MEDS: Cefepime 1 GM in Sodium Chloride 0.9% 100 ML IVPB SCH ×2 (08:10→20:39)
[2019-01-03] MEDS: Sodium Chloride 0.9% (PF) 10 ML VIAL FS PRN (08:11)
[2019-01-03] MEDS: methylPREDNISolone Sod Succ 40 MG VIAL IVP SCH ×2 (08:11→20:39)
[2019-01-03] MEDS: Pantoprazole 40 MG VIAL IVP SCH (08:11)
[2019-01-03] MEDS: GLEEVEC PO SCH (09:40)
--- NOTE | 2019-01-03 09:40 | PRG ---
DATE OF SERVICE: 01/03/2019 SUBJECTIVE: This morning, he is intubated on the vent for progressive respiratory failure, still having profound weakness of his upper extremity. 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 OBJECTIVE: VITAL SIGNS: Temperature 99, pulse 51, blood pressure 140/82, saturations are 99%. CHEST: Decreased breath sounds. No wheezing. CARDIAC: Normal S1 and S2. No gallops. ABDOMEN: No masses. LABORATORY DATA: White count 13,000, H and H 8 and 26, platelet count 326. PO2 of 116, pCO2 of 20, pH 7.51, on a rate of 14, 40% FiO2. DIAGNOSTIC DATA: His last chest x-ray shows right lung atelectatic changes. IMPRESSION: 1. Respiratory failure, extensive mucus plugging, marked weakness. 2. 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 3. May have a demyelinating polyneuropathy. PLAN: Continue vent support. Discussed with family at length ongoing issues. Broad-spectrum antibiotics, neb treatments, supportive care. We will follow. One-half hour of critical time. Job ID: [id number]
[2019-01-03] MEDS: Amiodarone HCl 450 MG in Dextrose 5% in Water 250 ML IVPB SCH (11:16)
[2019-01-03] MEDS: Lorazepam 2 MG/ML VIAL SLOW IVP PRN (12:41)
--- NOTE | 2019-01-03 17:48 | PRG ---
DATE OF SERVICE: 01/03/2019 SUBJECTIVE: The patient is intubated. He does wake and minimally try to follow commands, but cannot give much more information. OBJECTIVE: VITAL SIGNS: Temperature 98.9, pulse 74, and blood pressure is 99/61. GENERAL APPEARANCE: Age-appropriate male. He is in no distress. He is intubated. He is slightly sedated, easily awaken. HEART: Regular rate and rhythm without murmurs, gallops, or rubs. LUNGS: Clear to auscultation bilaterally with minimal upper airway rales. ABDOMEN: Soft and nondistended. Positive bowel sounds. EXTREMITIES: Have 2+ pitting edema with some generalized lower extremity muscle atrophy. LABORATORY DATA: White count 13.0, hemoglobin 8.2, and platelets 326. INR 4.0. ABG; pH 7.51, pCO2 is 28, pO2 is 116. Sodium 139, potassium 3.6, chloride 109, CO2 is 25, BUN 16, creatinine 0.5, and glucose 170. IMPRESSION AND PLAN: 1. 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 Apparently, plan is to consider transferring the patient to [place] with initiating the process tomorrow if the patient's consents to such. I discussed with Janeth Del Rio, who says in turn she had talked to Dr. Altamirano and that is his plan. In the meantime, continue with respiratory support on the ventilator. 2. Gastrointestinal stromal tumor, status post resection, on Gleevec. 3. Acute respiratory failure, secondary to respiratory arrest from progressive ascending paralysis. 4. Supratherapeutic INR, Coumadin being held. 5. Leukocytosis, likely secondary to steroids. 6. Anemia, secondary to chronic disease. Job ID: [id number]
[2019-01-03] MEDS: Amiodarone 200 MG TAB PO SCH (20:34)
[2019-01-04] MEDS: Sodium Chloride 0.9% 1,000 ML IV SCH ×2 (05:17→13:49)
[2019-01-04 05:26] LABS: #Eosinphils 0.1 thou/uL (0.0-0.7); #Lymphocytes 1.1 thou/uL (1.20-3.40); #Monocytes 1.1 thou/uL (0.11-0.59); %Basophils 0.1 % (0.0-1.0); %Eosinophils 0.4 % (0.0-10.0); %Lymphocytes 7.9 % (21.0-51.0); %Monocytes 7.7 % (0.0-10.0); %Neutrophils 83.9 % (42.0-75.0); Hemoglobin 8.1 g/dL (14.0-18.0); Mean Corpuscular Hemoglobin 30.3 pg (27.0-31.0); Mean Corpuscular Volume 94.9 fL (78.0-98.0); Platelet Count 339 thou/uL (130-400); Red Blood Cell (RBC) Count 2.68 mill/uL (4.70-6.10); White Blood Cell (WBC) Count 14.3 thou/uL (4.8-10.8)
[2019-01-04 05:32] LABS: PTT 34.7 SEC (22.9-36.1); Prothrombin Time 31.3 SEC (12.0-14.7)
[2019-01-04 05:37] LABS: Anion Gap 10 mmol/L (10-20); BUN (Urea Nitrogen) 14 mg/dL (8.4-25.7); Calc. Creatinine Clearance 217 mL/min (70-130); Calcium 8.6 mg/dL (7.8-10.44); Carbon Dioxide 24 mmol/L (22-29); Chloride 111 mmol/L (98-107); Estimated GFR-MDRD Greater than 90; Glucose 190 mg/dL (70-105); Potassium 3.6 mmol/L (3.5-5.1); Sodium 141 mmol/L (136-145)
[2019-01-04 07:44] LABS: Actual Bicarbonate (HCO3a) 21.8 mEq/L (22-28); Analyzer IN Cardio ER; Base Excess (BEa) -1.6 mEq/L (-2.0 to +3.0); CO2 Tension 31.7 mmHg (35.0-45.0); Calcium, Ionized 1.21 mmol/L (1.12-1.30); Carboxyhemoglobin (COHb) 0.3 gm% (0.0-3.0); Hemoglobin (Hb) 8.8 g/dL (14.0-18.0); O2 Tension (PaO2) 92.1 mmHg (80.0-100.0); pH, Arterial 7.46 (7.35-7.45)
[2019-01-04 07:47] LABS: ALV-art Gradient 153.475 (0-20); Puncture Site RR
--- NOTE | 2019-01-04 07:56 | RAD ---
CHEST ONE VIEW: INDICATIONS: History of intubation. COMPARISON: 01/02/2019 FINDINGS/IMPRESSION: Examination is unchanged. Tubes and lines are stable. No pneumothorax is evident. Bilateral pleura l parenchymal opacities with cardiomegaly and pulmonary vascular congestion persist. POS: [facility]
[2019-01-04] MEDS: Pantoprazole 40 MG VIAL IVP SCH (08:45)
[2019-01-04] MEDS: Cefepime 1 GM in Sodium Chloride 0.9% 100 ML IVPB SCH ×2 (08:45→21:04)
[2019-01-04] MEDS: Amiodarone 200 MG TAB PO SCH ×2 (08:45→21:04)
[2019-01-04] MEDS: methylPREDNISolone Sod Succ 40 MG VIAL IVP SCH ×2 (08:45→21:04)
[2019-01-04] MEDS: Morphine 2 MG/ML SYRINGE SLOW IVP PRN ×3 (08:45→17:33)
[2019-01-04] MEDS: Sodium Chloride 0.9% (PF) 10 ML VIAL FS PRN (08:45)
[2019-01-04] MEDS: GLEEVEC PO SCH (08:46)
--- NOTE | 2019-01-04 09:00 | PRG ---
DATE OF SERVICE: 01/04/2019 SUBJECTIVE: Yony Marsh this morning is awake, alert and responsive . OBJECTIVE: VITAL SIGNS: Blood pressure 104/62, pulse 66, respirations 18, he is afebrile. His I's and O's have been 4794 in and 1246. CHEST: Decreased breath sounds. No wheezing. CARDIAC: Normal S1, S2. No gallops. ABDOMEN: No masses. [place]: [place] [address], lytes are normal. pO2 is 92, pCO2 31%, 4 segs. Lytes are normal. X-ray shows bilateral atelectatic changes. IMPRESSION: 1. Paraneoplastic syndrome with marked muscle weakness. 2. Recurrent respiratory failure. 3. Atelectasis. 4. Mucus plug. PLAN: 1. We are trying to arrange for him to [place], if possible for plasmapheresis and they will accept him. 2. He has a gastrointestinal stromal tumor. He was given Gleevec for his stromal tumor, status post surgery. 1. Hold sedation. 2. Continue PT supportive care. PROGNOSIS: Remains guarded. One-half hour of critical time. Job ID: [id number]
--- NOTE | 2019-01-04 09:09 | PRG ---
DATE OF SERVICE: 01/04/2019 SUBJECTIVE: Yony Marsh remains intubated on the vent. OBJECTIVE: VITAL SIGNS: Pulse 87, blood pressure 154/85, sats are 100%, respirations 24. GENERAL: Awake, alert and responsive, he is weak though. Does move his upper extremities. CHEST: Decreased breath sounds. No wheezing. CARDIAC: Normal S1, S2. No gallops. ABDOMEN: No masses. EXTREMITIES: Trace edema. Does wiggle his toes. LABORATORY DATA: White count 14,000, H and H 8 and 25, platelet count is normal. PO2 92, pCO2 42 ph 7.45_ on a rate of 10 and 40%. Lytes are normal. X-ray showed bilateral atelectatic changes, right greater than left. IMPRESSION: 1. Respiratory failure. 2. Paraneoplastic syndrome. Bronchoscopy therapy was performed. Try and transfer him to [place]. If they accept, minimize sedation, PT. One-half hour of critical time. Job ID: [id number] [facility]TDD
--- NOTE | 2019-01-04 11:08 | OP ---
DATE OF PROCEDURE: 01/04/2019 PROCEDURE: Bronchoscopy, therapeutic. INDICATION: Bilateral lung atelectasis. DESCRIPTION OF PROCEDURE: After informed consent from the sister, the bedside flexible bronchoscope was used adapt the endotracheal tube, bite block in place. Entering the trachea, the pau was normal. The right lung was completely occluded with clear mucus, which was suction lavaged to clear. Mucomyst was instilled 5 mL of 20%. Lungs were lavaged completely clear. Thereafter, the right upper, right middle, and right lower lobe visualized up to the subsegment without any further endobronchial obstruction, blood, or pus. The left lung was inspected after this. There was lesser amount of mucus in the basilar segments also suction lavaged until completely clear. Both lungs were re-lavaged with normal saline total of 60 mL without any issues. The patient tolerated the procedure well. He is connected back to volume-cycle respirator and minimize sedation. Job ID: [id number] [facility]TDD
[2019-01-04] MEDS ORDERED: Acetylcysteine 20% 200 MG/ML 30 ML VIAL ONE (11:11)
[2019-01-04] MEDS ORDERED: Benzocaine 20% Spray 60 ML CAN ONE (11:11)
[2019-01-04] MEDS: Lorazepam 2 MG/ML VIAL SLOW IVP PRN ×3 (12:50→23:27)
--- NOTE | 2019-01-04 18:20 | PRG ---
DATE OF SERVICE: 01/04/2019 SUBJECTIVE: The patient is intubated and nonverbal. OBJECTIVE: VITAL SIGNS: BP 103/60, respirations 20, temperature 99 F. GENERAL APPEARANCE: The patient is intubated and sedated. Minimally interactive. HEART: Regular rate and rhythm without murmurs, gallops, or rubs. LUNGS: Clear to auscultation bilaterally with good chest wall expansion and air exchange. ABDOMEN: Soft, nontender, and nondistended. Positive bowel sounds. No masses. No organomegaly. EXTREMITIES: Warm, dry, with some near flaccid paralysis of the lower extremities with some early muscle atrophy. LABORATORY DATA: White count 14.3, hemoglobin 8.1, platelets 339. ABG, pH 7.46, pCO2 32, PO2 92.1, potassium 3.6, BUN 14, creatinine 0.5, glucose 190. Chest x-ray, basically normal. IMPRESSION AND PLAN: 1. Progressive ascending paralysis consistent with CIDP. The patient needs plasmapheresis and I am attempting to get the patient transferred to [place]. My understanding is the patient has had no success in the first 3 places we have attempted, still working toward that end. 2. Gastrointestinal stromal tumor status post resection, on Gleevec. 3. Acute respiratory failure secondary to ascending paralysis. Continue ventilator support. 4. Supratherapeutic INR, improved now down to 3.0 today. 5. Leukocytosis secondary to steroids. 6. Anemia of chronic disease. Job ID: [id number]
[2019-01-04] MEDS: Acetylcysteine 20% 200 MG/ML INH SCH ×2 (18:43→22:13)
[2019-01-05] MEDS: Sodium Chloride 0.9% 1,000 ML IV SCH ×3 (00:18→20:37)
[2019-01-05] MEDS: Lorazepam 2 MG/ML VIAL SLOW IVP PRN ×2 (04:33→18:20)
[2019-01-05 05:48] LABS: INR-International Normal Ratio 2.1; PTT 34.2 SEC (22.9-36.1); Prothrombin Time 23.2 SEC (12.0-14.7)
[2019-01-05] MEDS: Morphine 2 MG/ML SYRINGE SLOW IVP PRN (06:05)
[2019-01-05 06:16] LABS: Hemoglobin 7.7 g/dL (14.0-18.0); Mean Corpuscular HGB CONC 30.6 g/dL (32.0-36.0); Mean Corpuscular Hemoglobin 29.7 pg (27.0-31.0); Mean Corpuscular Volume 97.1 fL (78.0-98.0); Mean Platelet Volume 7.5 fL (7.4-10.4); Platelet Count 313 thou/uL (130-400); RBC Distribution Width 13.8 % (11.5-14.5); White Blood Cell (WBC) Count 20.8 thou/uL (4.8-10.8)
[2019-01-05 06:17] LABS: Band 1 % (5-11); Lymphocytes 6 % (21-51); MDiff Complete? YES; Monocytes 5 % (0-10); Neutrophil 88 % (42-75)
--- NOTE | 2019-01-05 07:13 | RAD ---
CHEST ONE VIEW: INDICATIONS: History of intubation. COMPARISON: 01/04/2019 FINDINGS/IMPRESSION: Cardiomegaly, pulmonary vascular congestion, and bilateral pleural effusions, right greater than left , are stable. EG tube and gastric catheter are unchanged. No pneumothorax is demonstrated. POS: [facility]
[2019-01-05] MEDS: Acetylcysteine 20% 200 MG/ML INH SCH ×2 (07:14→18:51)
[2019-01-05 07:16] LABS: Anion Gap 10 mmol/L (10-20); BUN (Urea Nitrogen) 16 mg/dL (8.4-25.7); Calc. Creatinine Clearance 213 mL/min (70-130); Calcium 8.5 mg/dL (7.8-10.44); Carbon Dioxide 24 mmol/L (22-29); Chloride 112 mmol/L (98-107); Estimated GFR-MDRD Greater than 90; Glucose 184 mg/dL (70-105); Potassium 3.3 mmol/L (3.5-5.1); Sodium 143 mmol/L (136-145)
--- NOTE | 2019-01-05 09:55 | PRG ---
DATE OF SERVICE: 01/05/2019 SUBJECTIVE: Yony Marsh is a 58-year-old gentleman, who is intubated on the vent. He opens his eyes, unable to move his legs. OBJECTIVE: VITAL SIGNS: Blood pressure 125/70, pulse 80, respiratory rate 18, and sats are 99%. CHEST: Extensive rhonchi. CARDIAC: Sinus tach. ABDOMEN: Soft. LABORATORY DATA: His white count 20,000, hemoglobin and hematocrit of 7 and 25, platelet count 313. INR is 2.1. Lytes are normal. X-ray, post bronchoscopy yesterday shows once again right lower lung atelectatic changes. IMPRESSION: 1. Recurrent atelectatic changes. 2. Marked weakness ascending paralysis. 3. Paraneoplastic syndrome, status post gastric stromal cancer. He is not weanable at this stage. We are trying to get him to a tertiary hospital for possible plasmapheresis to see whether this would help his paraneoplastic syndrome. Otherwise, continue aggressive PT, neb treatments, and supportive care. One-half hour of critical time. Job ID: [id number]
[2019-01-05] MEDS: Cefepime 1 GM in Sodium Chloride 0.9% 100 ML IVPB SCH ×2 (09:56→20:36)
[2019-01-05] MEDS: methylPREDNISolone Sod Succ 40 MG VIAL IVP SCH ×2 (09:56→20:35)
[2019-01-05] MEDS: Pantoprazole 40 MG VIAL IVP SCH (10:12)
[2019-01-05] MEDS: Amiodarone 200 MG TAB PO SCH ×2 (10:12→20:36)
[2019-01-05] MEDS: GLEEVEC PO SCH (11:59)
[2019-01-05] MEDS: Warfarin Sodium 5 MG TAB PO SCH (17:05)
[2019-01-05] MEDS ORDERED: Cefepime 1 GM VIAL ONE (20:41)
[2019-01-06] MEDS: Lorazepam 2 MG/ML VIAL SLOW IVP PRN ×2 (00:33→02:51)
[2019-01-06] MEDS: Sodium Chloride 0.9% 1,000 ML IV SCH (05:13)
[2019-01-06 05:48] LABS: Anion Gap 7 mmol/L (10-20); BUN (Urea Nitrogen) 16 mg/dL (8.4-25.7); Calc. Creatinine Clearance 213 mL/min (70-130); Calcium 8.4 mg/dL (7.8-10.44); Carbon Dioxide 28 mmol/L (22-29); Chloride 113 mmol/L (98-107); Estimated GFR-MDRD Greater than 90; Glucose 193 mg/dL (70-105); Potassium 3.2 mmol/L (3.5-5.1); Sodium 145 mmol/L (136-145)
[2019-01-06 06:01] LABS: #Eosinphils 0.1 thou/uL (0.0-0.7); #Lymphocytes 1.3 thou/uL (1.20-3.40); #Monocytes 1.2 thou/uL (0.11-0.59); #Neutrophils 16.8 thou/uL (1.40-6.50); %Basophils 0.1 % (0.0-1.0); %Eosinophils 0.5 % (0.0-10.0); %Lymphocytes 6.7 % (21.0-51.0); %Neutrophils 86.8 % (42.0-75.0); Hemoglobin 7.4 g/dL (14.0-18.0); Mean Corpuscular HGB CONC 30.9 g/dL (32.0-36.0); Mean Corpuscular Hemoglobin 29.8 pg (27.0-31.0); Mean Corpuscular Volume 96.4 fL (78.0-98.0); Mean Platelet Volume 8.3 fL (7.4-10.4); Platelet Count 308 thou/uL (130-400); RBC Distribution Width 14.5 % (11.5-14.5); Red Blood Cell (RBC) Count 2.48 mill/uL (4.70-6.10); White Blood Cell (WBC) Count 19.4 thou/uL (4.8-10.8)
[2019-01-06 06:08] LABS: INR-International Normal Ratio 1.9; PTT 31.9 SEC (22.9-36.1); Prothrombin Time 21.4 SEC (12.0-14.7)
[2019-01-06] MEDS: Acetylcysteine 20% 200 MG/ML INH SCH ×2 (07:13→19:53)
[2019-01-06] MEDS ORDERED: Furosemide 40 MG/4 ML VIAL SLOW IVP SCH (08:00)
[2019-01-06] MEDS: Morphine 2 MG/ML SYRINGE SLOW IVP PRN ×3 (08:01→15:48)
--- NOTE | 2019-01-06 08:14 | RAD ---
PORTABLE SEMIUPRIGHT FRONTAL RADIOGRAPH CHEST: 01/06/2019 HISTORY: Ventilated CCU patient. COMPARISON: 01/05/2019 FINDINGS: Stable endotracheal tube and nasogastric tube. There is dense pleural and parenchymal opacity within both lung bases, right greater than left, evidence of pleural effusions with associated nonspecific pulmonary parenchymal opacity. No pneumothorax. Heart and mediastinal contours are stable. IMPRESSION: Stable appearance of the chest, demonstrating significant bibasilar pleural and parenchymal opacity, right greater than left. Findings suggest edema. Superimposed infection or aspiration cannot be exc luded. POS: [facility]
--- NOTE | 2019-01-06 08:15 | PRG ---
DATE OF SERVICE: 01/06/2019 SUBJECTIVE: Yony Marsh is a 58-year-old gentleman, remains intubated, is more awake and responsive. OBJECTIVE: VITAL SIGNS: Pulse 95, blood pressure is 115/67, sats 100%, respiratory rate 18. GENERAL: Awake, alert, responsive. Denies any pain. He says he wants to be left intubated for one more day. He is on amiodarone, Maxipime, neb treatments, minimize sedation. CHEST: Decreased breath sounds. No wheezing. CARDIAC: Normal S1 and S2. No gallops or masses. X-ray shows left lung atelectasis recurrent, probably small pleural effusion. IMPRESSION: 1. Recurrent atelectasis, marked weakness, ascending paralysis, etiology unclear, probably paraneoplastic. 2. Right pleural effusion. Normal EF. Severe deconditioning. 3. Discontinue IV fluids. Continue neb treatments. Continue steroids. 4. Trial of Lasix. We will hopefully try and wean and extubate in the next 24 to 48 hours. One half hour of critical time. Job ID: [id number]
[2019-01-06] MEDS: Amiodarone 200 MG TAB PO SCH ×2 (09:25→20:06)
[2019-01-06] MEDS: Pantoprazole 40 MG VIAL IVP SCH (09:25)
--- NOTE | 2019-01-06 09:25 | PRG ---
DATE OF SERVICE: 01/05/2019 SUBJECTIVE: The patient ventilated. He is awake. He is able to answer questions. Denies any pain. Feels like he is tolerating all of this quite well. OBJECTIVE: VITAL SIGNS: Temperature 99.1, respirations 16, pulse 80s, BP 127/70. GENERAL APPEARANCE: Age-appropriate male. He is intubated. He is awake. He is interactive. HEART: Regular rate and rhythm without murmurs, gallops or rubs. LUNGS: Clear bilaterally. ABDOMEN: Soft, nontender, and nondistended. Positive bowel sounds. No masses nor organomegaly. EXTREMITIES: With some profound weakness and trace edema. LABORATORY DATA: Sodium 143, potassium 3.3, chloride 112, CO2 24, BUN is 16, creatinine 0.52, glucose 184, and calcium 8.5. IMPRESSION AND PLAN: 1. 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 My plan is currently to try to get the patient transferred to [place]. He has apparently been accepted at [facility], but awaiting bed availability. 2. Gastrointestinal stromal tumor, status post resection, on Gleevec. 3. Acute respiratory failure secondary to paralysis. Continue ventilator support. Pulmonary Critical Care following. 4. Supratherapeutic INR, improved. 5. Leukocytosis secondary to steroids. 6. Chronic anemia, stable. Continue to follow. Job ID: [id number]
[2019-01-06] MEDS: Cefepime 1 GM in Sodium Chloride 0.9% 100 ML IVPB SCH ×2 (09:26→20:06)
[2019-01-06] MEDS: GLEEVEC PO SCH (09:29)
[2019-01-06] MEDS: methylPREDNISolone Sod Succ 40 MG VIAL IVP SCH (09:29)
[2019-01-06] MEDS: Warfarin Sodium 5 MG TAB PO SCH (17:33)
--- NOTE | 2019-01-06 18:52 | PRG ---
DATE OF SERVICE: 01/06/2019 SUBJECTIVE: The patient is intubated. He is awake. Denies any problems today. OBJECTIVE: VITAL SIGNS: BP 137/76, respirations 18, pulse 80, and temperature 98.2. GENERAL APPEARANCE: Age-appropriate male, in no distress. He is intubated. He is awake and tolerating the intubation well, nods and shakes head, answer questions, and follows commands appropriately. HEART: Regular rate and rhythm without murmurs. LUNGS: Clear to auscultation bilaterally. ABDOMEN: Soft, nontender, and nondistended. Positive bowel sounds. No masses. No organomegaly. EXTREMITIES: Only trace edema with some significant lower extremity weakness. LABORATORY DATA: White count 19.4, hemoglobin 7.4, and platelets 308. INR 1.9. Sodium 145, potassium 3.2, chloride 113, CO2 is 28, BUN 16, creatinine 0.52, and glucose 193. IMPRESSION AND PLAN: 1. Progressive ascending paralysis. Ask Neurology to come back and see the patient today. It is unclear if this is a demyelinating process. I have been attempting the patient to transfer to [place] for consideration of plasmapheresis; however, believe the patient may benefit from high-dose steroids. We will ask Neurology to consider the possibility. 2. Gastrointestinal stromal tumor, post resection, on Gleevec. 3. Acute respiratory failure secondary to ascending paralysis. Continue vent support. 4. History of small proximal left lower extremity deep vein thrombosis, has been on Coumadin. INR is drifting down to the normal range at 1.9 today. If it continues to decline, may need to add some Lovenox. He is supposed to get a lumbar puncture tomorrow. However, we will need to hold off until then. 5. Leukocytosis secondary to steroids. 6. Chronic anemia, stable. Job ID: [id number]
--- NOTE | 2019-01-06 22:53 | PRG ---
DATE OF SERVICE: 01/06/2019 Mr. Marsh remains intubated at this point after failing extubation. His vital signs remain stable and he is afebrile. He is alert and appropriate and cooperative with the exam. On exam today, he has good facial strength. He had good neck flexion. His motor exam in the upper extremity shows 3/5 strength at the biceps, triceps, and 3- with finger abduction, 3+ with finger flexion. He cannot elevate his legs off the bed. Ankle flexion is essentially 1/5. Sensation is intact. Reflexes are diffusely absent. No muscle fasciculations are seen. Given the subacute onset with no associated pain or bulbar involvement, my leading suspicion is chronic inflammatory demyelinating polyneuropathy. Myasthenia gravis without facial involvement is possible. The antibody test is pending. I would go ahead and initiate therapy to try to improve his strength utilizing steroids. I will follow his clinical course. Job ID: [id number]
[2019-01-07 04:23] LABS: PTT 31.3 SEC (22.9-36.1); Prothrombin Time 22.4 SEC (12.0-14.7)
[2019-01-07 04:41] LABS: Anion Gap 10 mmol/L (10-20); BUN (Urea Nitrogen) 18 mg/dL (8.4-25.7); Calc. Creatinine Clearance 209 mL/min (70-130); Calcium 8.8 mg/dL (7.8-10.44); Carbon Dioxide 29 mmol/L (22-29); Chloride 109 mmol/L (98-107); Estimated GFR-MDRD Greater than 90; Glucose 210 mg/dL (70-105); Potassium 3.5 mmol/L (3.5-5.1); Sodium 144 mmol/L (136-145)
[2019-01-07 04:46] LABS: Hemoglobin 7.9 g/dL (14.0-18.0); Hypochromia SLIGHT = 6-15 cells (100X) (0-5/hpf); Lymphocytes 2 % (21-51); MDiff Complete? YES; Mean Corpuscular HGB CONC 31.1 g/dL (32.0-36.0); Mean Corpuscular Hemoglobin 30.3 pg (27.0-31.0); Mean Corpuscular Volume 97.5 fL (78.0-98.0); Monocytes 1 % (0-10); Neutrophil 97 % (42-75); Platelet Count 301 thou/uL (130-400); Platelet Morphology Comment Appears Adequate; RBC Distribution Width 14.7 % (11.5-14.5); Red Blood Cell (RBC) Count 2.61 mill/uL (4.70-6.10); White Blood Cell (WBC) Count 22.5 thou/uL (4.8-10.8)
[2019-01-07] MEDS: Potassium Chloride 40 MEQ in Premix Bag 1 BAG IVPB PRN (06:44)
[2019-01-07] MEDS: Acetylcysteine 20% 200 MG/ML INH SCH ×3 (07:08→18:49)
[2019-01-07 07:26] LABS: Actual Bicarbonate (HCO3a) 28.9 mEq/L (22-28); Base Excess (BEa) 4.9 mEq/L (-2.0 to +3.0); CO2 Tension 40.2 mmHg (35.0-45.0); Calcium, Ionized 1.21 mmol/L (1.12-1.30); Carboxyhemoglobin (COHb) 1.8 gm% (0.0-3.0); Hemoglobin (Hb) 8.2 g/dL (14.0-18.0); O2 Tension (PaO2) 66.1 mmHg (80.0-100.0); Potassium - ABG Lab 3.49 mmol/L (3.70-5.30); pH, Arterial 7.47 (7.35-7.45)
[2019-01-07 07:40] LABS: Puncture Site RRA
--- NOTE | 2019-01-07 07:45 | CON ---
DATE OF CONSULTATION: 01/07/2019 Mr. Marsh is stable overnight. Vital signs remain stable. His respiratory status still remains poor. According to the respiratory therapist, his breathing depth is quite shallow. His motor strength is unchanged from last evening. He has only received 1 dose of his steroids. We will continue to follow in his care. Job ID: [id number]
--- NOTE | 2019-01-07 09:57 | PRG ---
DATE OF SERVICE: 01/07/2019 SUBJECTIVE: Yony Marsh remains in the ICU, intubated in the vent, awake, alert, and responsive. Tidal volume is a great like 500 mL. Unfortunately, his negative inspiratory pressure was only 18 yesterday suggesting marked weakness of his diaphragm. OBJECTIVE: VITAL SIGNS: Blood pressure 137/74, pulse 70, respiratory rate 18, and afebrile. CHEST: Decreased breath sounds. Bilateral rhonchi. CARDIAC: Sinus tach. ABDOMEN: Soft without masses. LABORATORY DATA: White count 20,000, hemoglobin and hematocrit of 7 and 25, platelet count 301. His lytes are normal. His blood gas; pO2 of 66, pCO2 , pH 7.47. IMPRESSION: Respiratory failure, recurrent atelectasis, underlying presumed paraneoplastic syndrome associated with demyelinating polyneuropathy. PLAN: Difficult situation at this stage. We are trying to get in to a tertiary care hospital for plasmapheresis. Still on 80 mg of Solu-Medrol without much improvement in his strength. He has nutrition, PT going on, recurrent bronchoscopy many times were done to clear his airways. He may need a trach. Family wants all supportive care. We will follow. One-half hour of critical time. Job ID: [id number]
--- NOTE | 2019-01-07 09:59 | PDOC.PN ---
- Subjective Encounter Start Date: 01/07/19 (f/u resp failure) Encounter Start Time: 09:57 Subjective: In intubated and responsive - able to nod yes/no, denies any pain - Objective Resuscitation Status - Order Detail: 12/26/18 11:57 Resuscitation Status Routine Resuscitation Status: FULL: Full Resuscitation Vital Signs & Weight: Vital Signs (12 hours) Temp Pulse Resp BP Pulse Ox 01/07/19 07:10 71 137/74 01/07/19 07:07 78 19 100 01/07/19 06:00 19 01/07/19 04:00 99.8 F H 18 01/07/19 02:27 76 136/73 01/07/19 02:00 18 01/07/19 00:00 99.1 F 21 H 01/06/19 22:26 98 128/74 01/06/19 22:00 18 Weight Admit Weight 209 lb Weight 237 lb 10.533 oz Most Recent Monitor Data Heart Rate from ECG 68 NIBP 111/67 NIBP BP-Mean 81 Respiration from ECG 2 SpO2 100 I&O: 01/06/19 01/07/19 01/08/19 06:59 06:59 06:59 Intake Total 3728 1562 Output Total 1235 2245 Balance 4713 -323 Result Diagrams: 01/07/19 03:50 01/07/19 03:50 EKG Reviewed by me: Yes (tele - sinus 60's) Phys Exam - Physical Examination Constitutional: NAD Respiratory: no wheezing, no rales, no rhonchi shallow breaths Cardiovascular: RRR, no significant murmur Gastrointestinal: soft, non-tender, no distention, positive bowel sounds bilateral pitting edema left > right 1+ full open/close of hands Deviation from normal: some areas of superficial wounds with crusting on LLE Dx/Plan (1) Ascending paralysis Code(s): G61.0 - GUILLAIN-BARRE SYNDROME Status: Acute (2) Acute respiratory failure Code(s): J96.00 - ACUTE RESPIRATORY FAILURE, UNSP W HYPOXIA OR HYPERCAPNIA Status: Acute Qualifiers: Respiratory failure complication: hypoxia Qualified Code(s): J96.01 - Acute respiratory failure with hypoxia Comment: 12/27: S/P acute respiratory failure, hypoxia requiring intubation 12/28: Extubated on 12/28/18 after Bronchoscopy bronchoscopy showing large thicK pus/ mucus plugging the left lung, requiring aspiration of the pus for more than 10 minutes Continue Vanc and Levaquin, follow up on creatinine, follow up on Bronch culture. Blood cx so far negative (3) Bilateral lower extremity edema Code(s): R60.0 - LOCALIZED EDEMA Status: Acute (4) DVT (deep venous thrombosis) Code(s): I82.409 - ACUTE EMBOLISM AND THOMBOS UNSP DEEP VN UNSP LOWER EXTREMITY Status: Acute - Plan * d/w Dr. Spencer the LP as the INR must be less than 1.5. Dr. Spencer reports it is not essential and can cancel * * Will d/w Dr. Altamirano the cefepime - has been on since 30 December - neg blood cultures * reviewed and can d/c * * continue other meds as ordered including the solumedrol started last night * * dvt prophy - on coumadin and at goal * gi prophy - protonix * * code status full * * reviewed plan of care with patient, no questions or further needs at end of eval * pt remains at high risk in current condition * .
[2019-01-07] MEDS: Amiodarone 200 MG TAB PO SCH ×2 (10:10→22:01)
[2019-01-07] MEDS: Cefepime 1 GM in Sodium Chloride 0.9% 100 ML IVPB SCH (10:10)
[2019-01-07] MEDS: Pantoprazole 40 MG VIAL IVP SCH (10:11)
[2019-01-07] MEDS: GLEEVEC PO SCH (10:37)
--- NOTE | 2019-01-07 11:00 | RAD ---
SINGLE VIEW CHEST: Date: 01/07/19 COMPARISON: 01/06/19. HISTORY: Ventilated patient with respiratory failure. FINDINGS: Single view of the chest shows a normal sized cardiomediastinal silhouette. The endotracheal tube and NG tube are unchanged in position. There are small, stable bilateral pleural effusions with adjacent atelectasis. IMPRESSION: Stable exam. POS: [facility]
[2019-01-07] MEDS ORDERED: Warfarin Sodium 5 MG TAB PO SCH (17:00)
--- NOTE | 2019-01-07 22:48 | CON ---
DATE OF CONSULTATION: SUBJECTIVE: This patient is suspected of having peripheral neuropathy. On extensive review of literature, I found 2 case reports of peripheral neuropathy from Gleevec. "Other neurologic toxicities" have also been reported in 0.1 to 1% of patients taking Gleevec. This patient had good response to Gleevec. This patient is currently tumor-free and no mitotic figures were noted in the resected tumor. I think it will be safe to hold his Gleevec at least for a few months or possibly longer. For this reason, I am going to discontinue Gleevec. Job ID: [id number]
[2019-01-08 04:36] LABS: INR-International Normal Ratio 1.8; PTT 29.2 SEC (22.9-36.1); Prothrombin Time 21.3 SEC (12.0-14.7)
[2019-01-08 04:49] LABS: Anion Gap 12 mmol/L (10-20); BUN (Urea Nitrogen) 25 mg/dL (8.4-25.7); Calc. Creatinine Clearance 222 mL/min (70-130); Calcium 8.8 mg/dL (7.8-10.44); Carbon Dioxide 27 mmol/L (22-29); Chloride 109 mmol/L (98-107); Estimated GFR-MDRD Greater than 90; Glucose 248 mg/dL (70-105); Potassium 3.7 mmol/L (3.5-5.1); Sodium 144 mmol/L (136-145)
[2019-01-08 04:52] LABS: Band 6 % (5-11); Lymphocytes 1 % (21-51); MDiff Complete? YES; Mean Corpuscular HGB CONC 31.7 g/dL (32.0-36.0); Mean Corpuscular Hemoglobin 30.6 pg (27.0-31.0); Mean Corpuscular Volume 96.4 fL (78.0-98.0); Mean Platelet Volume 8.2 fL (7.4-10.4); Monocytes 2 % (0-10); Neutrophil 91 % (42-75); Platelet Count 289 thou/uL (130-400); Platelet Morphology Comment Appears Adequate; RBC Distribution Width 15.2 % (11.5-14.5); RBC Morphology Normal; Red Blood Cell (RBC) Count 2.63 mill/uL (4.70-6.10); White Blood Cell (WBC) Count 23.7 thou/uL (4.8-10.8)
[2019-01-08] MEDS: Potassium Chloride 40 MEQ in Premix Bag 1 BAG IVPB PRN (06:36)
[2019-01-08] MEDS: Acetylcysteine 20% 200 MG/ML INH SCH ×2 (06:45→18:43)
[2019-01-08 07:01] LABS: Actual Bicarbonate (HCO3a) 28.4 mEq/L (22-28); Base Excess (BEa) 4.5 mEq/L (-2.0 to +3.0); CO2 Tension 39.4 mmHg (35.0-45.0); Calcium, Ionized 1.23 mmol/L (1.12-1.30); Carboxyhemoglobin (COHb) 1.4 gm% (0.0-3.0); Hemoglobin (Hb) 8.9 g/dL (14.0-18.0); O2 Tension (PaO2) 60.3 mmHg (80.0-100.0); Potassium - ABG Lab 3.63 mmol/L (3.70-5.30); pH, Arterial 7.48 (7.35-7.45)
[2019-01-08 07:03] LABS: Puncture Site RRA
[2019-01-08] MEDS ORDERED: Dextrose 5% in Water 1,000 ML IV PRN (07:16)
[2019-01-08] MEDS ORDERED: Dextrose 50% Abboject 50 ML SYRINGE SLOW IVP PRN (07:16)
--- NOTE | 2019-01-08 07:57 | PDOC.PN ---
- Subjective Encounter Start Date: 01/08/19 (f/u weakness) Encounter Start Time: 07:56 Subjective: Pt without complaints, remains intubated. Shakes head no to noticing -: a difference with strength or movement - Objective Resuscitation Status - Order Detail: 12/26/18 11:57 Resuscitation Status Routine Resuscitation Status: FULL: Full Resuscitation Vital Signs & Weight: Vital Signs (12 hours) Temp Pulse Resp BP Pulse Ox 01/08/19 06:46 90 145/85 H 01/08/19 06:44 89 23 H 100 01/08/19 06:00 19 01/08/19 04:00 98.8 F 17 01/08/19 02:51 73 01/08/19 02:00 17 01/08/19 00:00 99.4 F 15 01/07/19 22:12 72 01/07/19 22:00 20 01/07/19 20:00 99.6 F 17 100 Weight Admit Weight 209 lb Weight 237 lb 3.478 oz Most Recent Monitor Data Heart Rate from ECG 87 NIBP 152/84 NIBP BP-Mean 106 Respiration from ECG 21 SpO2 100 I&O: 01/07/19 01/08/19 01/09/19 06:59 06:59 06:59 Intake Total 1562 2002 Output Total 2245 1019 40 Balance -683 984 -40 Result Diagrams: 01/08/19 04:19 01/08/19 03:30 Additional Labs: Accuchecks 01/07/19 11:54 POC Glucose 200 H EKG Reviewed by me: Yes (tele sinus 60's, pac's) Phys Exam - Physical Examination Constitutional: NAD Respiratory: no wheezing, no rales, no rhonchi, clear to auscultation bilateral shallow breaths - improved today Cardiovascular: RRR, no significant murmur Gastrointestinal: soft, non-tender, no distention, positive bowel sounds trace pitting edema RLE and 1+ pitting edema LLE 2+ DP pulses bilateral Deviation from normal: awake, shakes head yes/no to questions Skin: no rash Dx/Plan (1) Ascending paralysis Code(s): G61.0 - GUILLAIN-BARRE SYNDROME Status: Acute (2) Acute respiratory failure Code(s): J96.00 - ACUTE RESPIRATORY FAILURE, UNSP W HYPOXIA OR HYPERCAPNIA Status: Acute Qualifiers: Respiratory failure complication: hypoxia Qualified Code(s): J96.01 - Acute respiratory failure with hypoxia Comment: 12/27: S/P acute respiratory failure, hypoxia requiring intubation 12/28: Extubated on 12/28/18 after Bronchoscopy bronchoscopy showing large thicK pus/ mucus plugging the left lung, requiring aspiration of the pus for more than 10 minutes Continue Vanc and Levaquin, follow up on creatinine, follow up on Bronch culture. Blood cx so far negative (3) Bilateral lower extremity edema Code(s): R60.0 - LOCALIZED EDEMA Status: Acute (4) DVT (deep venous thrombosis) Code(s): I82.409 - ACUTE EMBOLISM AND THOMBOS UNSP DEEP VN UNSP LOWER EXTREMITY Status: Chronic (5) Elevated blood sugar Code(s): R73.9 - HYPERGLYCEMIA, UNSPECIFIED Status: Acute (6) Anemia Code(s): D64.9 - ANEMIA, UNSPECIFIED Status: Acute Qualifiers: Anemia type: unspecified type Qualified Code(s): D64.9 - Anemia, unspecified - Plan * Appreciate Neurology guidance - on steroids for CIDP. No LP secondary to patient anti-coagulated * * Appreciate Pulmonology consultation - remains on vent. * * Cefepime d/c yesterday - pt had been on abx at least since 30 December with negative blood cx * * Elevated blood sugars - start lantus this morning with accuchecks and regular sliding scale coverage. Attribute this to the steroids. Change tube feed to lower glucose - RN to check with dietary. * * Leukocytosis likely secondary to steroids. * * INR slightly low - Pharmacy dosing coumadin, raised to 6 mg tonight * * Anemia - stable, will add iron and vitamin studies to labs collected. * * dvt prophy - on coumadin * gi prophy - protonix * * code status full * * reviewed plan of care with patient, no questions or further needs at end of eval * pt remains at high risk in current condition.
[2019-01-08] MEDS ORDERED: Insulin Glargine 10 UNITS in Pre-Filled Syringe 1 EACH SC SCH (09:00)
[2019-01-08] MEDS: Sodium Chloride 0.9% (PF) 10 ML VIAL FS PRN (09:55)
[2019-01-08] MEDS: Pantoprazole 40 MG VIAL IVP SCH (09:55)
[2019-01-08] MEDS: Amiodarone 200 MG TAB PO SCH ×2 (09:55→20:43)
[2019-01-08] MEDS: Insulin Regular 300 UNITS/3 ML VIAL SC PRN ×2 (10:08→16:24)
[2019-01-08 10:52] LABS: Folate (Folic Acid) 7.3 ng/mL (7.0-31.4)
--- NOTE | 2019-01-08 11:18 | PRG ---
DATE OF SERVICE: 01/08/2019 TIME SPENT: This is 35 minutes of critical care time. SUBJECTIVE: This patient remains intubated, on mechanical ventilation. He is fully awake. His is at the bedside, and we had a significant discussion about prognosis and possible tracheostomy in the future. OBJECTIVE: VITAL SIGNS: On exam, temperature is 99.0, pulse 66, blood pressure 144/83. A 24-hour intake 2002, output 1019. HEENT: ET tube, orogastric feeding tube in place. NECK: No adenopathy. No JVD. LUNGS: Clear anteriorly. CARDIAC: S1 and S2, regular without audible murmur. ABDOMEN: Soft, nontender. EXTREMITIES: No edema. NEUROLOGICAL: His upper extremity strength is 5/5. Lower extremity strength is fairly dismal. He has bilateral footdrop. LABORATORY DATA: White blood cell count 23.7, hematocrit 25.3, and platelet count 289. PH 7.48, pCO2 of 39, pO2 of 60. Sodium 144, potassium 3.7, chloride 109, CO2 of 27, BUN 25, creatinine 0.6, glucose 248. ASSESSMENT: 1. Probable chronic inflammatory demyelinating polyneuropathy. 2. Acute respiratory failure with possible paraneoplastic syndrome. 3. Recent deep vein thrombosis. 4. Hyperglycemia. PLAN: 1. The patient will remain on mechanical ventilation until his strength is better. Right now, his NIF is only at -15 and needs to be significantly improved from that to facilitate extubation. 2. I agree with discontinuing the patient's antibiotics. 3. I have taken the Levophed off his MAR. 4. He is currently on Coumadin for treatment of DVT. 5. He is receiving IV steroids at the behest of Neurology for treatment of the chronic inflammatory demyelinating polyneuropathy. 6. Discussed the possibility of tracheostomy in the upcoming days if the patient fails to show improvement. Job ID: [id number]
[2019-01-08] MEDS ORDERED: Pancrelipase DR 12000 1 CAP FS PRN (12:36)
[2019-01-08] MEDS ORDERED: Sodium Bicarbonate Tab 325 MG TAB PER TUBE PRN (12:36)
[2019-01-08] MEDS: Warfarin Sodium 3 MG TAB PO SCH (17:15)
[2019-01-08] MEDS: Morphine 2 MG/ML SYRINGE SLOW IVP PRN (20:43)
[2019-01-09 05:37] LABS: INR-International Normal Ratio 1.9; PTT 29.5 SEC (22.9-36.1); Prothrombin Time 22.2 SEC (12.0-14.7)
[2019-01-09 05:57] LABS: Band 9 % (5-11); Elliptocytes SLIGHT = 2-5 cells (100X) (0-1/hpf); Hemoglobin 8.1 g/dL (14.0-18.0); Lymphocytes 6 % (21-51); MDiff Complete? YES; Mean Corpuscular HGB CONC 31.4 g/dL (32.0-36.0); Mean Corpuscular Volume 98.6 fL (78.0-98.0); Mean Platelet Volume 8.6 fL (7.4-10.4); Metamyelocyte 1 % (0-0); Monocytes 3 % (0-10); Neutrophil 81 % (42-75); Platelet Count 252 thou/uL (130-400); Platelet Morphology Comment Appears Adequate; RBC Distribution Width 15.9 % (11.5-14.5); Red Blood Cell (RBC) Count 2.62 mill/uL (4.70-6.10); White Blood Cell (WBC) Count 21.9 thou/uL (4.8-10.8)
[2019-01-09 06:01] LABS: Anion Gap 10 mmol/L (10-20); BUN (Urea Nitrogen) 28 mg/dL (8.4-25.7); Calc. Creatinine Clearance 231 mL/min (70-130); Carbon Dioxide 30 mmol/L (22-29); Chloride 108 mmol/L (98-107); Estimated GFR-MDRD Greater than 90; Glucose 219 mg/dL (70-105); Sodium 144 mmol/L (136-145)
[2019-01-09] MEDS: Insulin Regular 300 UNITS/3 ML VIAL SC PRN ×4 (06:08→22:30)
[2019-01-09 07:04] LABS: Actual Bicarbonate (HCO3a) 27.8 mEq/L (22-28); CO2 Tension 38.3 mmHg (35.0-45.0); Calcium, Ionized 1.24 mmol/L (1.12-1.30); Carboxyhemoglobin (COHb) 1.3 gm% (0.0-3.0); Hemoglobin (Hb) 8.9 g/dL (14.0-18.0); O2 Tension (PaO2) 68.3 mmHg (80.0-100.0); Potassium - ABG Lab 3.83 mmol/L (3.70-5.30); pH, Arterial 7.48 (7.35-7.45)
[2019-01-09 07:10] LABS: ALV-art Gradient 169.025 (0-20); Puncture Site RRA
[2019-01-09] MEDS: Acetylcysteine 20% 200 MG/ML INH SCH ×2 (07:37→19:31)
--- NOTE | 2019-01-09 09:15 | PDOC.PN ---
- Subjective Encounter Start Date: 01/09/19 (f/u resp failure) Encounter Start Time: 09:13 Subjective: Pt c/o mild abd cramping today, intermittent. denies nausea or pain -: elsewhere. - Objective Resuscitation Status - Order Detail: 12/26/18 11:57 Resuscitation Status Routine Resuscitation Status: FULL: Full Resuscitation Vital Signs & Weight: Vital Signs (12 hours) Temp Pulse Resp BP Pulse Ox 01/09/19 06:41 78 149/89 H 01/09/19 06:40 80 17 98 01/09/19 06:00 18 01/09/19 04:00 14 01/09/19 02:22 82 01/09/19 02:00 14 01/09/19 00:00 99.1 F 16 01/08/19 22:00 17 01/08/19 21:58 68 146/82 H Weight Admit Weight 209 lb Weight 238 lb 8.642 oz Most Recent Monitor Data Heart Rate from ECG 74 NIBP 149/89 NIBP BP-Mean 109 Respiration from ECG 18 SpO2 98 I&O: 01/08/19 01/09/19 01/10/19 06:59 06:59 06:59 Intake Total 2002 2801 Output Total 1019 1312 Balance 984 1489 Result Diagrams: 01/09/19 04:35 01/09/19 04:35 Additional Labs: Accuchecks 01/09/19 01/08/19 01/08/19 05:01 23:04 16:23 POC Glucose 218 H 196 H 212 H 01/08/19 09:56 POC Glucose 251 H EKG Reviewed by me: Yes (tele - sinus 50's) Phys Exam - Physical Examination Constitutional: NAD Respiratory: no wheezing, no rales, no rhonchi, clear to auscultation bilateral Cardiovascular: RRR, no significant murmur Gastrointestinal: soft, positive bowel sounds mild ttp throughout, palpable midline scar. No other palpable abnormalitie 1+ pitting edema bilateral strength in hands/arms improved, able to move feet/toes Psychiatric: normal affect Skin: no rash Dx/Plan (1) Ascending paralysis Code(s): G61.0 - GUILLAIN-BARRE SYNDROME Status: Acute (2) Acute respiratory failure Code(s): J96.00 - ACUTE RESPIRATORY FAILURE, UNSP W HYPOXIA OR HYPERCAPNIA Status: Acute Qualifiers: Respiratory failure complication: hypoxia Qualified Code(s): J96.01 - Acute respiratory failure with hypoxia Comment: 12/27: S/P acute respiratory failure, hypoxia requiring intubation 12/28: Extubated on 12/28/18 after Bronchoscopy bronchoscopy showing large thicK pus/ mucus plugging the left lung, requiring aspiration of the pus for more than 10 minutes Continue Vanc and Levaquin, follow up on creatinine, follow up on Bronch culture. Blood cx so far negative (3) Bilateral lower extremity edema Code(s): R60.0 - LOCALIZED EDEMA Status: Acute (4) DVT (deep venous thrombosis) Code(s): I82.409 - ACUTE EMBOLISM AND THOMBOS UNSP DEEP VN UNSP LOWER EXTREMITY Status: Chronic (5) Elevated blood sugar Code(s): R73.9 - HYPERGLYCEMIA, UNSPECIFIED Status: Acute (6) Anemia Code(s): D64.9 - ANEMIA, UNSPECIFIED Status: Acute Qualifiers: Anemia type: unspecified type Qualified Code(s): D64.9 - Anemia, unspecified (7) Abdominal pain Code(s): R10.9 - UNSPECIFIED ABDOMINAL PAIN Status: Acute Qualifiers: Abdominal location: generalized Qualified Code(s): R10.84 - Generalized abdominal pain - Plan * Abd pain w/benign abd exam and hx of surgery - XR to eval for obstruction * * Appreciate Neurology guidance - on steroids for CIDP. No LP secondary to patient anti-coagulated. Dr. Spencer to re-evaluate today * * Appreciate Pulmonology consultation - remains on vent. * * Elevated blood sugars - lantus started yesterday at 10, increased to 15 units today * * Leukocytosis likely secondary to steroids. * * INR slightly low - Pharmacy dosing, received a slightly higher dose last night * * Anemia - stable, very slightly low iron with elevated ferritin and normal b12/ folate. No indication for transfusion at this time, follow. As pt on coumadin , will order type and screen for tomorrow. * * dvt prophy - on coumadin * gi prophy - protonix * * code status full * * reviewed plan of care with patient, no questions or further needs at end of eval * pt remains at high risk in current condition.
[2019-01-09] MEDS: Amiodarone 200 MG TAB PO SCH ×2 (09:58→20:46)
[2019-01-09] MEDS: Insulin Glargine 15 UNITS in Pre-Filled Syringe 1 EACH SC SCH (09:59)
[2019-01-09] MEDS: Pantoprazole 40 MG VIAL IVP SCH (10:00)
[2019-01-09] MEDS: Sodium Chloride 0.9% (PF) 10 ML VIAL FS PRN (10:00)
--- NOTE | 2019-01-09 11:20 | PRG ---
DATE OF SERVICE: 01/09/2019 TIME SPENT: 35 minutes critical care time. SUBJECTIVE: The patient remains intubated on mechanical ventilation. He is awake. He is able to follow commands with his arms, but cannot move his legs very well. OBJECTIVE: VITAL SIGNS: On exam, his temperature is 99.1, pulse is 74, blood pressure is 149/89, O2 saturation is 98%. 24-hour intake 2801, output 3012. HEENT: Unremarkable. NECK: No JVD. He has endotracheal tube in place. LUNGS: Clear. CARDIAC: S1, S2. Regular. ABDOMEN: Soft, nontender. EXTREMITIES: Edema. NEUROLOGICAL: Moves upper extremities and has 5/5 strength in the upper extremities. Lower extremities are only removed by hip motion. He has no flexion or extension of his ankles that I can detect. LABORATORY DATA: White blood cell count 21.9, hematocrit 25.9, and platelet count 252. INR is 1.9. PH 7.48, pCO2 of 38, pO2 of 68, that is on CPAP 5, pressure support 12, FiO2 40%. His Brian was -20. Sodium 144, potassium 4, chloride 108, CO2 of 30, BUN 28, creatinine 0.5, glucose 219. ASSESSMENT: 1. Acute respiratory failure requiring mechanical ventilation. 2. Chronic inflammatory demyelinating polyneuropathy. 3. Possible paraneoplastic syndrome. 4. Recent DVT. PLAN: 1. The patient remains too weak to facilitate extubation at this time. Discussed with family the possibility of tracheostomy in the upcoming days if he does not progress much. 2. Continue the Coumadin for the DVT. 3. Continue IV steroids per Neurology for treatment of the demyelinating polyneuropathy. Job ID: [id number]
--- NOTE | 2019-01-09 16:50 | RAD ---
SUPINE AND LEFT LATERAL DECUBITUS IMAGING OF THE ABDOMEN: 01/09/2019 HISTORY: Abdominal pain. History of abdominal surgery. COMPARISON: 12/26/2018 FINDINGS: The left lateral decubitus imaging demonstrates no evidence for free intraperitoneal air in the right upper quadrant. The nasogastric tube extends into the left upper quadrant. The bowel gas pattern appears nonobstructed. There is hazy density in the right lung base, which may represent volume loss or small volume pleural fluid. There is multilevel degenerative change of the lumbar spine. IMPRESSION: No free intraperitoneal air or evidence of small bowel obstruction. POS: FRANCIA
[2019-01-09] MEDS: Warfarin Sodium 3 MG TAB PO SCH (17:56)
[2019-01-10 03:46] LABS: #Lymphocytes 0.4 thou/uL (1.20-3.40); #Monocytes 0.5 thou/uL (0.11-0.59); #Neutrophils 18.2 thou/uL (1.40-6.50); %Basophils 0.2 % (0.0-1.0); %Eosinophils 0.2 % (0.0-10.0); %Lymphocytes 2.1 % (21.0-51.0); %Monocytes 2.7 % (0.0-10.0); %Neutrophils 94.8 % (42.0-75.0); Mean Corpuscular Hemoglobin 31.1 pg (27.0-31.0); Mean Platelet Volume 8.6 fL (7.4-10.4); Platelet Count 209 thou/uL (130-400); Red Blood Cell (RBC) Count 2.56 mill/uL (4.70-6.10); White Blood Cell (WBC) Count 19.2 thou/uL (4.8-10.8)
[2019-01-10 03:51] LABS: PTT 31.1 SEC (22.9-36.1)
[2019-01-10 03:52] LABS: INR-International Normal Ratio 2.3; Prothrombin Time 25.6 SEC (12.0-14.7)
[2019-01-10 04:03] LABS: Anion Gap 12 mmol/L (10-20); BUN (Urea Nitrogen) 29 mg/dL (8.4-25.7); Calc. Creatinine Clearance 231 mL/min (70-130); Calcium 8.8 mg/dL (7.8-10.44); Carbon Dioxide 29 mmol/L (22-29); Chloride 107 mmol/L (98-107); Estimated GFR-MDRD Greater than 90; Glucose 216 mg/dL (70-105); Potassium 4.1 mmol/L (3.5-5.1); Sodium 144 mmol/L (136-145)
[2019-01-10] MEDS: Insulin Regular 300 UNITS/3 ML VIAL SC PRN ×4 (04:06→21:33)
[2019-01-10] MEDS: Acetylcysteine 20% 200 MG/ML INH SCH ×2 (07:33→18:50)
[2019-01-10 07:46] LABS: Base Excess (BEa) 3.6 mEq/L (-2.0 to +3.0); Calcium, Ionized 1.32 mmol/L (1.12-1.30); Carboxyhemoglobin (COHb) 1.3 gm% (0.0-3.0); Hemoglobin (Hb) 9.9 g/dL (14.0-18.0); Potassium - ABG Lab 3.77 mmol/L (3.70-5.30); pH, Arterial 7.31 (7.35-7.45)
[2019-01-10 07:51] LABS: CO2 Tension 63.4 mmHg (35.0-45.0); O2 Tension (PaO2) 44.9 mmHg (80.0-100.0); Puncture Site RRA
[2019-01-10] MEDS: Insulin Glargine 15 UNITS in Pre-Filled Syringe 1 EACH SC SCH (09:19)
[2019-01-10] MEDS: Amiodarone 200 MG TAB PO SCH ×2 (09:20→21:15)
[2019-01-10] MEDS: methylPREDNISolone Sod Succ/PF 125 MG/2 ML VIAL IVP SCH ×2 (09:20→21:16)
[2019-01-10] MEDS: Pantoprazole 40 MG VIAL IVP SCH (09:25)
[2019-01-10] MEDS: Sodium Chloride 0.9% (PF) 10 ML VIAL FS PRN (09:25)
--- NOTE | 2019-01-10 11:38 | PDOC.PN ---
- Subjective Encounter Start Date: 01/10/19 Encounter Start Time: 12:10 Subjective: Patient was on pressure support past 1-2 days, but hypoxic this -: AM and had to turn back to [facility] ventilation. - Objective Resuscitation Status - Order Detail: 12/26/18 11:57 Resuscitation Status Routine Resuscitation Status: FULL: Full Resuscitation MAR Reviewed: Yes Vital Signs & Weight: Vital Signs (12 hours) Temp Pulse Resp 01/10/19 10:45 66 01/10/19 08:00 25 H 01/10/19 07:34 80 01/10/19 06:00 18 01/10/19 04:00 98.6 F 13 01/10/19 02:30 51 L 01/10/19 02:00 19 01/10/19 00:00 98.7 F 16 Weight Admit Weight 209 lb Weight 243 lb 6.245 oz Most Recent Monitor Data Heart Rate from ECG 61 NIBP 142/79 NIBP BP-Mean 100 Respiration from ECG 17 SpO2 100 I&O: 01/09/19 01/10/19 01/11/19 06:59 06:59 06:59 Intake Total 2801 2822 40 Output Total 1312 1314 75 Balance 1489 1508 -35 Result Diagrams: 01/10/19 03:20 01/10/19 03:20 Additional Labs: Accuchecks 01/09/19 01/09/19 01/09/19 22:30 15:52 10:40 POC Glucose 198 H 220 H 213 H Phys Exam - Physical Examination Constitutional: NAD HEENT: moist MMs Respiratory: no wheezing, no rales, no rhonchi Cardiovascular: RRR, no significant murmur Gastrointestinal: soft, positive bowel sounds TTP KAVITA/RUQ/RLQ Neurological: non-focal, moves all 4 limbs Psychiatric: normal affect, A&O x 3 Dx/Plan (1) Ascending paralysis Code(s): G61.0 - GUILLAIN-BARRE SYNDROME Status: Acute Comment: demyelinating polyneuropathy (2) Acute respiratory failure Code(s): J96.00 - ACUTE RESPIRATORY FAILURE, UNSP W HYPOXIA OR HYPERCAPNIA Status: Acute Qualifiers: Respiratory failure complication: hypoxia Qualified Code(s): J96.01 - Acute respiratory failure with hypoxia Comment: 12/27: S/P acute respiratory failure, hypoxia requiring intubation 12/28: Extubated on 12/28/18 after Bronchoscopy bronchoscopy showing large thicK pus/ mucus plugging the left lung, requiring aspiration of the pus for more than 10 minutes Continue Vanc and Levaquin, follow up on creatinine, follow up on Bronch culture. Blood cx so far negative (3) Anemia Code(s): D64.9 - ANEMIA, UNSPECIFIED Status: Acute Qualifiers: Anemia type: unspecified type Qualified Code(s): D64.9 - Anemia, unspecified (4) Elevated blood sugar Code(s): R73.9 - HYPERGLYCEMIA, UNSPECIFIED Status: Acute Comment: secondary to steroids, titrating up Lantus (5) DVT (deep venous thrombosis) Code(s): I82.409 - ACUTE EMBOLISM AND THOMBOS UNSP DEEP VN UNSP LOWER EXTREMITY Status: Chronic Comment: Coumadin therapeutic - Plan cont current plan of care, continue antibiotics * . - Discharge Day Encounter end time: 12:20
--- NOTE | 2019-01-10 16:21 | PRG ---
DATE OF SERVICE: SUBJECTIVE: Mr. Marsh continues to fail weaning intense. He was on pressure support over the weekend and still had a pCO2 of 63 this morning. His tidal volumes became progressively smaller this morning. He was placed on volume ventilation. His best negative inspiratory force has been -20 cm water pressure. OBJECTIVE: VITAL SIGNS: Heart rate 60, blood pressure 141/77, oximetry is 99. LUNGS: Clear. HEART: Regular rhythm. ABDOMEN: Distended. The nurses tell me he had a bowel movement this weekend. He is still on tube feeds. LABORATORY DATA: PH 7.31, CO2 of 63, PO2 of 44. Electrolytes are unremarkable. White count 19.2, hemoglobin 8.0, platelets 209,000. IMPRESSION: 1. Respiratory failure associated with an ascending paralysis felt to possibly be CIDP. 2. 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 3. Hypertension. 4. Status post negative cervical, thoracic, and lumbar spine magnetic resonance imaging and an input by Neurosurgery last fall leaving the opinion that there was nothing structural in his spine leading to his weakness. 5. I do not see any way he is weanable for any length of time without a tracheostomy and even with a tracheostomy. He may not be successfully weanable. Attempts are being made to transfer for consideration of plasmapheresis. I am not optimistic that the steroids will help significantly. Job ID: [id number]
[2019-01-10] MEDS: Warfarin Sodium 3 MG TAB PO SCH (17:25)
[2019-01-11 05:41] LABS: INR-International Normal Ratio 2.9; PTT 29.6 SEC (22.9-36.1)
[2019-01-11 06:01] LABS: Hemoglobin 8.4 g/dL (14.0-18.0); Mean Corpuscular HGB CONC 31.2 g/dL (32.0-36.0); Mean Corpuscular Volume 99.5 fL (78.0-98.0); Mean Platelet Volume 8.8 fL (7.4-10.4); Platelet Count 181 thou/uL (130-400); RBC Distribution Width 16.5 % (11.5-14.5); Red Blood Cell (RBC) Count 2.71 mill/uL (4.70-6.10); White Blood Cell (WBC) Count 22.7 thou/uL (4.8-10.8)
[2019-01-11 06:02] LABS: Anion Gap 11 mmol/L (10-20); BUN (Urea Nitrogen) 29 mg/dL (8.4-25.7); Band 3 % (5-11); Calc. Creatinine Clearance 250 mL/min (70-130); Calcium 8.8 mg/dL (7.8-10.44); Carbon Dioxide 30 mmol/L (22-29); Chloride 105 mmol/L (98-107); Estimated GFR-MDRD Greater than 90; Glucose 200 mg/dL (70-105); Hypochromia SLIGHT = 6-15 cells (100X) (0-5/hpf); MDiff Complete? YES; Monocytes 1 % (0-10); Neutrophil 96 % (42-75); Platelet Morphology Comment Appears Adequate; Potassium 4.3 mmol/L (3.5-5.1); Sodium 142 mmol/L (136-145)
[2019-01-11] MEDS: Insulin Regular 300 UNITS/3 ML VIAL SC PRN ×3 (06:11→16:20)
[2019-01-11] MEDS: Acetylcysteine 20% 200 MG/ML INH SCH (06:50)
[2019-01-11 08:14] LABS: Actual Bicarbonate (HCO3a) 30.9 mEq/L (22-28); Base Excess (BEa) 6.5 mEq/L (-2.0 to +3.0); CO2 Tension 43.9 mmHg (35.0-45.0); Calcium, Ionized 1.21 mmol/L (1.12-1.30); Carboxyhemoglobin (COHb) 1.3 gm% (0.0-3.0); Hemoglobin (Hb) 9.5 g/dL (14.0-18.0); O2 Tension (PaO2) 65.2 mmHg (80.0-100.0); Potassium - ABG Lab 4.18 mmol/L (3.70-5.30); pH, Arterial 7.47 (7.35-7.45)
[2019-01-11 08:15] LABS: ALV-art Gradient 165.125 (0-20); Puncture Site LRA
[2019-01-11] MEDS ORDERED: Insulin Glargine 17 UNITS in Pre-Filled Syringe 1 EACH SC SCH (09:00)
[2019-01-11] MEDS: Amiodarone 200 MG TAB PO SCH (09:22)
[2019-01-11] MEDS: methylPREDNISolone Sod Succ/PF 125 MG/2 ML VIAL IVP SCH (09:23)
[2019-01-11] MEDS: Pantoprazole 40 MG VIAL IVP SCH (09:24)
[2019-01-11] MEDS: Sodium Chloride 0.9% (PF) 10 ML VIAL FS PRN (09:24)
--- NOTE | 2019-01-11 10:22 | PDOC.PN ---
- Subjective Encounter Start Date: 01/11/19 Encounter Start Time: 10:50 Subjective: Patient still intubated, not sedated. Arousable. Denies complaints. - Objective Resuscitation Status - Order Detail: 12/26/18 11:57 Resuscitation Status Routine Resuscitation Status: FULL: Full Resuscitation MAR Reviewed: Yes Vital Signs & Weight: Vital Signs (12 hours) Temp Pulse Resp BP Pulse Ox 01/11/19 10:21 67 17 100 01/11/19 08:20 20 01/11/19 08:00 99.1 F 01/11/19 06:50 89 20 99 01/11/19 06:46 74 149/85 H 01/11/19 06:00 16 01/11/19 04:00 99.9 F H 18 01/11/19 03:43 63 01/11/19 02:00 22 H 01/11/19 00:00 98.7 F 25 H 01/10/19 23:06 58 L 139/77 Weight Admit Weight 209 lb Weight 233 lb 11.04 oz Most Recent Monitor Data Heart Rate from ECG 57 NIBP 153/83 NIBP BP-Mean 106 Respiration from ECG 14 SpO2 100 I&O: 01/10/19 01/11/19 01/12/19 06:59 06:59 06:59 Intake Total 2822 2163 110 Output Total 1314 1879 195 Balance 1508 284 -85 Result Diagrams: 01/11/19 05:24 01/11/19 05:24 Additional Labs: Accuchecks 01/10/19 01/10/19 01/10/19 21:34 16:00 11:37 POC Glucose 185 H 206 H 212 H Phys Exam - Physical Examination Constitutional: NAD HEENT: moist MMs Respiratory: no wheezing, no rales, no rhonchi Cardiovascular: RRR, no significant murmur Gastrointestinal: soft, positive bowel sounds mild TTP KAVITA over scar diffuse weakness Psychiatric: normal affect, A&O x 3 Dx/Plan (1) CIDP (chronic inflammatory demyelinating polyneuropathy) Code(s): G61.81 - CHRONIC INFLAMMATORY DEMYELINATING POLYNEURITIS Status: Acute Comment: possibly paraneoplastic syndrome, per Dr. Page needs transfer to higher level of care for plasmapharesis (2) Acute respiratory failure Code(s): J96.00 - ACUTE RESPIRATORY FAILURE, UNSP W HYPOXIA OR HYPERCAPNIA Status: Acute Qualifiers: Respiratory failure complication: hypoxia Qualified Code(s): J96.01 - Acute respiratory failure with hypoxia Comment: 12/27: S/P acute respiratory failure, hypoxia requiring intubation 12/28: Extubated on 12/28/18 after Bronchoscopy bronchoscopy showing large thicK pus/ mucus plugging the left lung, requiring aspiration of the pus for more than 10 minutes Continue Vanc and Levaquin, follow up on creatinine, follow up on Bronch culture. Blood cx so far negative (3) Anemia Code(s): D64.9 - ANEMIA, UNSPECIFIED Status: Acute Qualifiers: Anemia type: unspecified type Qualified Code(s): D64.9 - Anemia, unspecified (4) Elevated blood sugar Code(s): R73.9 - HYPERGLYCEMIA, UNSPECIFIED Status: Acute Comment: secondary to steroids, titrating up Lantus (5) DVT (deep venous thrombosis) Code(s): I82.409 - ACUTE EMBOLISM AND THOMBOS UNSP DEEP VN UNSP LOWER EXTREMITY Status: Chronic Comment: Coumadin therapeutic - Plan cont current plan of care, respiratory therapy * . - Discharge Day Encounter end time: 11:00
[2019-01-11 11:47] VITALS: BMI 29.9
[2019-01-11 14:45] VITALS: BP 137/71
[2019-01-11] MEDS: Warfarin Sodium 3 MG TAB PO SCH (17:22)
[2019-01-11 18:44] VITALS: TEMP 99.1
--- NOTE | 2019-01-11 21:03 | PRG ---
DATE OF SERVICE: 01/11/2019 SUBJECTIVE: Yony Marsh' best negative inspiratory force this morning was -17. He is clearly going to require tracheostomy. Respiratory rate is in the 20s. He remains mechanically ventilated. Over the weekend, he did not tolerate simple pressure support ventilation and developed signs of respiratory failure as well as hypercarbia. OBJECTIVE: VITAL SIGNS: Blood pressure 141/80, heart rate 68. LUNGS: Clear. HEART: Regular rhythm. ABDOMEN: Soft. EXTREMITIES: Without asymmetry. IMPRESSION: 1. 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 2. Progressive weakness starting in his lower extremities and ascending, ? chronic immune demyelinating polyneuropathy. 3. Obesity. 4. Recent administration of Gleevec for his gastric stromal tumor, temporarily on hold. 5. Status post respiratory arrest simply with laying him down in bed on BiPAP to clean a bowel movement, this is what led to his intubation. 6. 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 He had locally invasive tumor in fall and was not deemed resectable, so the surgery was done in November. Tumor size was 10 cm. It was felt to be a T4 tumor based on size of the tumor. His omental margins were clean. 7. History of hypertension, on lisinopril and hydrochlorothiazide prior to admission. 8. History of pulmonary embolism in late 2017, leading to warfarin therapy. I talked to the hospitalist at [facility] in [place]. Unfortunately, we do not have inpatient nerve conduction velocity testing availability here nor do we have plasmapheresis availability if it is needed. I would think he would also need a lumbar puncture at some point in time, to see if he has CSF findings that would be consistent with immune demyelinating polyneuropathy. [facility] were gracious enough to accept him. Hopefully, they will be able to come up with a diagnosis and treatment plan that will lead to some functional recovery, although his prognosis is quite guarded. He is deemed stable for transfer by ground in my opinion. Job ID: [id number] MTDD
--- NOTE | 2019-01-11 22:32 | PRG ---
DATE OF SERVICE: 01/11/2019 Mr. Marsh remains on ventilatory support. His negative inspiratory flows are around 17. He is on day 4 of steroids. His exam today does not show any significant improvement from yesterday's motor strength exam. He otherwise appears to be stable. It was found that he could be moved to [place] for plasmapheresis given the severity of his condition. I would be in favor of this to facilitate a more rapid recovery. Job ID: [id number]
--- NOTE | 2019-01-12 08:30 | DIS ---
DATE OF ADMISSION: 12/26/2018 DATE OF DISCHARGE: 01/11/2019 PRIMARY CARE DOCTOR: Alan Hughes MD. REASON FOR ADMISSION: Acute respiratory failure with hypoxia. DIAGNOSES AT DISCHARGE: 1. Chronic inflammatory demyelinating polyneuropathy. 2. Acute respiratory failure with hypoxia and hypercapnia, unable to extubate. 3. Anemia. 4. Hyperglycemia secondary to steroids. 5. Deep venous thrombosis, on Coumadin. 6. Abdominal sarcoma with recent resection. 7. Hypertension. PROCEDURES: 1. CT of the chest and thorax showing no evidence of pulmonary embolism, bibasilar atelectasis. 2. Abdominal x-ray showing gastric catheter. No acute abnormality. Mild to moderate anasarca. 3. Echocardiogram showing ejection fraction of 60% to 65%, and 1/3 diastolic dysfunction. 4. Therapeutic bronchoscopy showing extensive pus and mucous plugging in entire left lower and upper lung. 5. Repeat bronchoscopy due to right lung atelectasis, also with clear mucoid impaction that was relieved. CONSULTATIONS: 1. Pulmonology, Dr. Altamirano and Dr. Page. 2. Heme/Oncology, Dr. Hays. 3. Neurology, Dr. Prieto and Dr. Spencer. 4. Infectious Disease, Dr. Mckeon. 5. Cardiology, Dr. Reese. 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 Garcia, last month. He was also over the last year has been having progressive weakness that started in his lower extremities, now wheelchair bound, going on since about March of last year. He came into the hospital complaining of shortness of breath. The patient was noted to be hypoxic, started on oxygen with good improvement in his oxygen saturations. He was admitted for possible pneumonia. In the hospital, the patient had acute onset of sudden respiratory distress. He was intubated. Dr. Altamirano was consulted along with Heme Oncology and Neurology. The patient was seen by Dr. Altamirano, had bronchoscopies with removal of lot of mucus bilaterally. He was eventually able to be weaned off the vent and put on noninvasive respiratory support with BiPAP, seem to be doing well but then at one point, he had a large bowel movement when they laid him down flat to clean him up, he stopped breathing and coded. He had to be reintubated. The patient did have some temporary atrial fibrillation, was seen by Cardiology and put on amiodarone with resolution of the atrial fibrillation. The patient was evaluated for possible acetylcholine antibodies, these were negative. At this point, it was considered he most likely had some sort of neuropathy or demyelinating condition. He was tried on high-dose steroids, however, he had minimal improvement with very elevated blood sugar, so these were started to be weaned down. At this point, Dr. Hays was reconsulted. He stated that there were couple of cases with peripheral neuropathy from Gleevec. The patient had a good response to Gleevec, but currently is tumor free with no mitotic figures are noted in the resected tumor and so, he said that holding the Gleevec would be fine for a few months. Dr. Page is concerned about a possible paraneoplastic syndrome or chronic inflammatory demyelinating polyneuritis. Given this, the patient is nonresponsive to steroids. The patient most likely needs plasmapheresis and so transfer was arranged to [facility] in [place]. The patient is being transferred there today. DISCHARGE MANAGEMENT: Transfer to [facility] in [place]. Continue vent settings and tube feedings as previously and continue all current medications. CURRENT MEDICATIONS: 1. Acetaminophen as needed. 2. Acetylcysteine 600 mg inhaled twice a day. 3. Amiodarone 400 mg twice a day. 4. Guaifenesin as needed. 5. Mild insulin sliding scale. 6. DuoNeb q.4 hours. 7. Magnesium oxide as needed. 8. Solu-Medrol 125 mg twice a day. 9. Protonix 40 mg IV daily. 10. Phosphorus electrolyte supplement as needed. 11. Potassium chloride as needed. 12. Warfarin 6 mg daily. 13. Lantus 17 units subcu daily. Job ID: [id number] [facility]
== END 2019-01-11 19:00 | disposition short-term general hospital (02) | DRG 167 ==
LOC: ERS 23:40 → ERHOLD 12-26 03:36 → OBSVTOIN 12-26 12:06 → 2SE 12-26 16:20 → 2NO 12-26 16:24 → CCU 12-26 17:11
PROVIDERS: ADMIT Internal Medicine; ATTEND Internal Medicine
PROC: 0BH17EZ Insertion of Endotracheal Airway into Trachea, Via Natural or Artificial Opening (ICD-10-PCS; principal; 2018-12-26)
PROC: 5A1945Z Respiratory Ventilation, 24-96 Consecutive Hours (ICD-10-PCS; 2018-12-26)
PROC: 0WCQ8ZZ Extirpation of Matter from Respiratory Tract, Via Natural or Artificial Opening Endoscopic (ICD-10-PCS; 2018-12-28)
PROC: 0B9L8ZX Drainage of Left Lung, Via Natural or Artificial Opening Endoscopic, Diagnostic (ICD-10-PCS; 2018-12-30)
PROC: 0WCQ8ZZ Extirpation of Matter from Respiratory Tract, Via Natural or Artificial Opening Endoscopic (ICD-10-PCS; 2018-12-30)
PROC: 0BH17EZ Insertion of Endotracheal Airway into Trachea, Via Natural or Artificial Opening (ICD-10-PCS; 2019-01-01)
PROC: 5A1955Z Respiratory Ventilation, Greater than 96 Consecutive Hours (ICD-10-PCS; 2019-01-01)
PROC: 0WCQ8ZZ Extirpation of Matter from Respiratory Tract, Via Natural or Artificial Opening Endoscopic (ICD-10-PCS; 2019-01-04)
DX: J96.01 Acute respiratory failure with hypoxia (principal); G82.20 Paraplegia, unspecified; C49.A2 Gastrointestinal stromal tumor of stomach; J98.11 Atelectasis; G61.81 Chronic inflammatory demyelinating polyneuritis; T17.890A Other foreign object in other parts of respiratory tract causing asphyxiation, initial encounter; I82.5Z2 Chronic embolism and thrombosis of unspecified deep veins of left distal lower extremity; I10 Essential (primary) hypertension; G13.0 Paraneoplastic neuromyopathy and neuropathy; R79.1 Abnormal coagulation profile; J96.02 Acute respiratory failure with hypercapnia; I48.91 Unspecified atrial fibrillation; R73.9 Hyperglycemia, unspecified; D72.828 Other elevated white blood cell count; R09.2 Respiratory arrest; D63.8 Anemia in other chronic diseases classified elsewhere; T38.0X5A Adverse effect of glucocorticoids and synthetic analogues, initial encounter; Z99.3 Dependence on wheelchair; Z87.891 Personal history of nicotine dependence; Z79.01 Long term (current) use of anticoagulants; Z79.899 Other long term (current) drug therapy; X58.XXXA Exposure to other specified factors, initial encounter; Y92.230 Patient room in hospital as the place of occurrence of the external cause
CPT/HCPCS: 36415; 36416; 71045; 71275; 74019; 80048; 80053; 80074; 80202; 81001; 82024; 82330; 82435; 82533; 82550; 82553; 82607; 82728; 82746; 82803; 82805; 83519; 83540; 83880; 84132; 84295; 84484; 85025; 85379; 85610; 85730; 86038; 86225; 86255; 86850; 86900; 86901; 87040; 87070; 87205; 87389; 87804; 93005; 93010; 93306; 94002; 94003; 94640; 94660; 94760; 96365; 96367; A4218; C9113; J0282; J0360; J0692; J1160; J1815; J1825; J1940; J1956; J2060; J2270; J2704; J2920; J2930; J3010; J3370; J3480; J7050; J7070; J7608; J7620; Q9966